=== PATIENT | male | born 1935 | race Caucasian/White ===

== ENCOUNTER 2021-02-23 17:19 | Inpatient (IN) | payer OTHER, MEDICARE, BC ==
[2021-02-23] MEDS ORDERED: FUROSEMIDE 10 MG/ML 4 ML VIAL IV STA (17:24)
[2021-02-23 17:40] LABS: Basophils % (A) 0 %; Eosinophils % (A) 0 %; HCT 48.4 % (39.0-53.0); HGB 15.5 gm/dL (13.0-17.5); Lymphocytes # (A) 1.1 k/uL (1.0-4.8); Lymphocytes % (A) 15 %; MCH 29.9 pg (25.0-35.0); MCHC 31.9 g/dL (31.0-37.0); MCV 93.6 fL (80.0-100.0); Monocytes # (A) 0.2 k/uL (0-1.0); Monocytes % (A) 3 %; Neutrophils % (A) 81 %; Platelet Count 168 k/uL (150-450); RBC 5.17 m/uL (4.30-5.90); RDW 13.5 % (11.5-15.5); WBC 7.5 k/uL (3.8-10.6)
[2021-02-23] MEDS ORDERED: HEPARIN SODIUM 1,000 UN/ML (10ML VL) IV PRN (17:47)
[2021-02-23] MEDS ORDERED: HEPARIN SODIUM 1,000 UN/ML (10ML VL) IV ONE (17:47)
[2021-02-23 17:48] LABS: ALT 18 U/L (4-49); AST 31 U/L (17-59); African American GFR (CKD) >90 (>60 ml/min/1.73 sqM); Albumin 3.8 g/dL (3.5-5.0); Alkaline Phosphatase 81 U/L (38-126); Anion Gap 6 mmol/L; Blood Urea Nitrogen 20 mg/dL (9-20); Calcium 8.8 mg/dL (8.4-10.2); Carbon Dioxide 35 mmol/L (22-30); Chloride 91 mmol/L (98-107); Glucose 117 mg/dL (74-99); Magnesium 1.9 mg/dL (1.6-2.3); Non-African American GFR(CKD) 87 (>60 ml/min/1.73 sqM); Potassium 4.2 mmol/L (3.5-5.1); Sodium 132 mmol/L (137-145); Total Bilirubin 0.9 mg/dL (0.2-1.3); Total Protein 6.3 g/dL (6.3-8.2)
[2021-02-23] MEDS ORDERED: ASPIRIN 300 MG SUPP RECTAL STA (17:48)
[2021-02-23 17:49] LABS: Partial Thromboplastin Time 23.9 sec (22.0-30.0); Prothrombin Time 10.6 sec (9.0-12.0)
[2021-02-23] MEDS ORDERED: NALOXONE 0.4 MG/ML 1 ML VIAL IV PRN (17:49)
--- NOTE | 2021-02-23 17:55 | ED ---
General Adult HPI - General Chief complaint: Shortness of Breath Stated complaint: sob Time Seen by Provider: 02/23/21 17:23 Source: EMS Mode of arrival: EMS Limitations: altered mental status - History of Present Illness Initial comments: Patient is an 85-year-old male with past medical history remarkable for COPD, CHF was transferred from an outside facility for hypercapnic hypoxic respiratory failure requiring intubation and mechanical ventilation. Patient was transferred for ICU admission. He was seen at the previous hospital was pending admission, when they found more confused and altered. He would not tolerate BiPAP at bedtime and he was intubated. He was transferred here for admission. Laboratory studies at the outside facility revealed an elevated BNP in lead III thousands. Remainder the labs are relatively unremarkable from evaluation. Patient is currently intubated and is unable to provide any form of history at this time.There is no history in our emr. - Related Data Home Medications Medication Instructions Recorded Confirmed Acetaminophen [Tylenol] 1,000 mg PO DAILY@89902/23/21 02/23/21 Aspirin EC [Ecotrin Low Dose] 81 mg PO HS@219902/23/21 02/23/21 Bumetanide [Bumex] 1 mg PO BID@1000,1500 02/23/21 02/23/21 Carvedilol [Coreg] 12.5 mg PO BID@07,219902/23/21 02/23/21 Celecoxib [CeleBREX] 200 mg PO DAILY@69902/23/21 02/23/21 Cholecalciferol [Vitamin D3 (25 25 mcg PO DAILY@69902/23/21 02/23/21 Mcg = 1000 Iu)] Ferrous Sulfate [Feosol] 325 mg PO DAILY@69902/23/21 02/23/21 Levothyroxine Sodium [Synthroid] 75 mcg PO DAILY@69902/23/21 02/23/21 Meclizine HCl 25 mg PO DAILY@89902/23/21 02/23/21 Omeprazole 20 mg PO HS@219902/23/21 02/23/21 Potassium Chloride ER [K-Dur 10] 10 meq PO BID@1000,1500 02/23/21 02/23/21 Simvastatin [Zocor] 20 mg PO HS@219902/23/21 02/23/21 amLODIPine [Norvasc] 5 mg PO DAILY@1000,1500 02/23/21 02/23/21 Allergies Allergy/AdvReac Type Severity Reaction Status Date / Time Penicillins Allergy Unknown Verified 02/23/21 18:22 Review of Systems ROS Statement: Those systems with pertinent positive or pertinent negative responses have been documented in the HPI. Unable to obtain as the patient is currently intubated. ROS Other: All systems not noted in ROS Statement are negative. Past Medical History Past Medical History: Unable to Obtain, COPD History of Any Multi-Drug Resistant Organisms: None Reported Past Surgical History: Unable to Obtain Smoking Status: Unknown if ever smoked Past Alcohol Use History: Unable to Obtain Past Drug Use History: Unable to Obtain General Exam - General Exam Comments Initial Comments: General: Patient is intubated. Currently sedated. HEAD: Normal with no signs of head trauma. EYES: PERRLA, EOMI, conjunctiva normal, no discharge. Pupils are 3 mm and equal bilaterally. ENT: ET tube in place. Trachea is midline. RESPIRATORY: Bilateral breath sounds with bilateral wheezing. Patient's currently ventilated. C/V: Mild bradycardia with a regular rhythm. S1 and S2 auscultated. Peripheral pulses are 1-2+ and intact throughout. Patient has 2-3+ pitting edema up to the bilateral shins. ABD: Abd is soft, nontender, nondistended EXT: Normal range of motion, no obvious deformity SKIN: No rashes or lesions observed on exposed skin. NEURO: Patient is currently intubated and sedated. Not alert or oriented. Limitations: altered mental status Course Vital Signs 02/23/21 02/23/21 02/23/21 17:21 17:31 17:41 Temperature Pulse Rate 51 L 55 L Respiratory 18 18 18 Rate Blood Pressure 160/91 157/90 O2 Sat by Pulse 100 100 Oximetry 02/23/21 02/23/21 02/23/21 17:56 18:00 18:04 Temperature Pulse Rate 51 L 53 L 54 L Respiratory 18 18 Rate Blood Pressure 140/80 138/79 O2 Sat by Pulse 100 100 Oximetry 02/23/21 02/23/21 02/23/21 18:09 18:48 19:02 Temperature 98.0 F Pulse Rate 52 L 51 L 55 L Respiratory 18 18 18 Rate Blood Pressure 127/87 O2 Sat by Pulse 98 97 Oximetry Procedures - ABG Interpretation Ph: 7.456 PCO2: 54.6 PO2: 204 Bicarbonate: 38.4 Interpretation: respiratory acidosis, metabolic alkalosis Medical Decision Making - Medical Decision Making Based on the patient's presentation and physical exam, I'm concerned for cardiac etiology versus heart failure exacerbation of COPD exacerbation for his current presentation. Is currently intubated for hypoxic hypercarbic respiratory failure. I did make ventilator adjustments, and increase the respiratory rate increased ventilation as the patient did have a CO2 at the outside facility over 100. We will repeat blood work, obtain a repeat EKG, chest x-ray, as well as an ABG. He'll be connected to continuous cardiac monitoring. He will require admission to the ICU. 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 Please see in the separately dictated EKG. I consult to cardiology, Dr. Peacock recommended that we start the patient on heparin for ACS and they will evaluate the patient. Patient remains intubated and sedated at this time on propofol. Patient's chest x-ray revealed a moderate left-sided effusion with adjacent ate lectasis and airspace disease. G-tube in ET tube in place. Patient's laboratory studies are remarkable for a mild hyponatremia of 132 and hypochloremia of 91. Patient's troponin is elevated to 0.052. Patient is COVID Negative. Patient received Lasix 40 mg in the order that Q8 hours. He'll also receive a DuoNeb breathing treatment as well as Q's six-hour 40 mg IV Medrol. He was started on a heparin drip per cardiology. I spoke with the ICU v block saw operator, Dr. Cho, who accepted the patient. Patient will be admitted to [facility] under sounds, and I spoke with Dr. Chen who accepted the patient. Patient was therefore admitted to the ICU in serious condition. - Lab Data Result diagrams: 02/23/21 18:49 02/23/21 17:33 Lab Results 02/23/21 02/23/21 02/23/21 Range/Units 17:33 17:33 17:33 WBC 7.5 (3.8-10.6) k/uL RBC 5.17 (4.30-5.90) m/uL Hgb 15.5 (13.0-17.5) gm/dL Hct 48.4 (39.0-53.0) % MCV 93.6 (80.0-100.0) fL MCH 29.9 (25.0-35.0) pg MCHC 31.9 (31.0-37.0) g/dL RDW 13.5 (11.5-15.5) % Plt Count 168 (150-450) k/uL MPV 7.0 Neutrophils % 81 % Lymphocytes % 15 % Monocytes % 3 % Eosinophils % 0 % Basophils % 0 % Neutrophils # 6.0 (1.3-7.7) k/uL Lymphocytes # 1.1 (1.0-4.8) k/uL Monocytes # 0.2 (0-1.0) k/uL Eosinophils # 0.0 (0-0.7) k/uL Basophils # 0.0 (0-0.2) k/uL PT 10.6 (9.0-12.0) sec INR 1.0 (<1.2) APTT 23.9 (22.0-30.0) sec Sodium 132 L (137-145) mmol/L Potassium 4.2 (3.5-5.1) mmol/L Chloride 91 L (98-107) mmol/L Carbon Dioxide 35 H (22-30) mmol/L Anion Gap 6 mmol/L BUN 20 (9-20) mg/dL Creatinine 0.66 (0.66-1.25) mg/dL Est GFR (CKD-EPI)AfAm >90 (>60 ml/min/1.73 sqM) Est GFR (CKD-EPI)NonAf 87 (>60 ml/min/1.73 sqM) Glucose 117 H (74-99) mg/dL Calcium 8.8 (8.4-10.2) mg/dL Magnesium 1.9 (1.6-2.3) mg/dL Total Bilirubin 0.9 (0.2-1.3) mg/dL AST 31 (17-59) U/L ALT 18 (4-49) U/L Alkaline Phosphatase 81 (38-126) U/L Troponin I (0.000-0.034) ng/mL Total Protein 6.3 (6.3-8.2) g/dL Albumin 3.8 (3.5-5.0) g/dL Coronavirus (PCR) (Not Detectd) 02/23/21 02/23/21 Range/Units 17:33 17:33 WBC (3.8-10.6) k/uL RBC (4.30-5.90) m/uL Hgb (13.0-17.5) gm/dL Hct (39.0-53.0) % MCV (80.0-100.0) fL MCH (25.0-35.0) pg MCHC (31.0-37.0) g/dL RDW (11.5-15.5) % Plt Count (150-450) k/uL MPV Neutrophils % % Lymphocytes % % Monocytes % % Eosinophils % % Basophils % % Neutrophils # (1.3-7.7) k/uL Lymphocytes # (1.0-4.8) k/uL Monocytes # (0-1.0) k/uL Eosinophils # (0-0.7) k/uL Basophils # (0-0.2) k/uL PT (9.0-12.0) sec INR (<1.2) APTT (22.0-30.0) sec Sodium (137-145) mmol/L Potassium (3.5-5.1) mmol/L Chloride (98-107) mmol/L Carbon Dioxide (22-30) mmol/L Anion Gap mmol/L BUN (9-20) mg/dL Creatinine (0.66-1.25) mg/dL Est GFR (CKD-EPI)AfAm (>60 ml/min/1.73 sqM) Est GFR (CKD-EPI)NonAf (>60 ml/min/1.73 sqM) Glucose (74-99) mg/dL Calcium (8.4-10.2) mg/dL Magnesium (1.6-2.3) mg/dL Total Bilirubin (0.2-1.3) mg/dL AST (17-59) U/L ALT (4-49) U/L Alkaline Phosphatase (38-126) U/L Troponin I 0.052 H* (0.000-0.034) ng/mL Total Protein (6.3-8.2) g/dL Albumin (3.5-5.0) g/dL Coronavirus (PCR) Not Detected (Not Detectd) - EKG Data -: EKG Interpreted by Me EKG Comments: 12-lead Electrocardiogram Interpretation Note EKG was reviewed and interpreted by myself. 12-lead ECG performed at 1735 is interpreted by me as revealing sinus bradycardia at a rate of 54 beats per minute. Left axis deviation. PA interval 190 ms, QRS durations 126 ms, QTc is 493 ms.. There are deep T-wave inversions in lead V2 through V4 as well as T- wave inversions in V5 and V6. Leads V2 through the for her also associated with mild ST segment depressions. Remainder of the leads are unremarkable. This is concerning for Wellens syndrome.. R wave progression across precordium was delayed.. By my interpretation, this EKG is concerning for acute ischemia and Wellens syndrome with sinus bradycardia. These are dynamic changes, as his prior EKGs at the outside facility did not reveal any T-wave inversions or depressions. Critical Care Time Critical Care Time: Yes Total Critical Care Time: 35 Critical Care Time: Upon my evaluation, this patient had a high probability of imminent or life- threatening deterioration due to respiratory failure, ACS, which required my direct attention, intervention, and personal management. I have personally provided 35 minutes of critical care time exclusive of time spent on separately billable procedures. Time includes review of laboratory data, radiology results, discussion with consultants, and monitoring for potential decompensation. Interventions were performed as documented in my note. Disposition Clinical Impression: ACS (acute coronary syndrome), Acute respiratory failure with hypoxia and hypercarbia, CHF exacerbation, COPD exacerbation, Elevated troponin, Hyponatremia, Sinus bradycardia Disposition: ADMITTED IP TO THIS HOSP Condition: Serious
[2021-02-23] MEDS: IPRATROPIUM-ALBUTEROL 3 ML NEB INHALATION SCH ×3 (17:56→23:23)
[2021-02-23 18:03] LABS: ABG Base Excess 14.5 mmol/L; ABG HCO3 38 mmol/L (21-25); ABG Oxygen Saturation 99.9 % (94-97); ABG PCO2 55 mmHg (35-45); ABG PH 7.46 (7.35-7.45); ABG PO2 204 mmHg (83-108); ABG TCO2 40 mmol/L (19-24); Allen Test Performed? Yes
--- NOTE | 2021-02-23 18:09 | XR ---
EXAMINATION TYPE: XR chest 1V portable DATE OF EXAM: 02/23/2021 COMPARISON: NONE HISTORY: Chest pain. Tube placement. TECHNIQUE: Single frontal view of the chest is obtained. FINDINGS: Perimediastinal silhouette is partially obscured on the left but appears unremarkable on t he right. Pulmonary vasculature is within normal limits. Opacification the left base. Median sternotomy wires. Gastric tube coursing below the diaphragm with the distal tip not seen. Endo tracheal tube tip approximately 2 cm above the adarsh. Partially visualized bilateral shoulder arthro plasties. IMPRESSION: 1. Moderate left effusion with adjacent atelectasis/airspace disease. 2. Lines and tubes as above.
[2021-02-23] MEDS: HEPARIN SOD,PORK IN 0.45% NACL 25,000 UNIT in 0.45% NACL 1 250ML.BAG IV SCH (18:41)
[2021-02-23] MEDS: methylPREDNISolone SOD SUCCI 40 MG/ML 1 ML VIAL IV SCH (18:44)
[2021-02-23] MEDS ORDERED: ASPIRIN 81 MG PO STA (18:46)
[2021-02-23 19:01] LABS: Basophils % (A) 0 %; Eosinophils % (A) 0 %; HCT 46.9 % (39.0-53.0); HGB 15.4 gm/dL (13.0-17.5); Lymphocytes # (A) 0.9 k/uL (1.0-4.8); Lymphocytes % (A) 12 %; MCH 30.4 pg (25.0-35.0); MCHC 32.8 g/dL (31.0-37.0); MCV 92.7 fL (80.0-100.0); Mean Platelet Volume 7.1; Monocytes # (A) 0.3 k/uL (0-1.0); Monocytes % (A) 4 %; Neutrophils % (A) 82 %; Platelet Count 160 k/uL (150-450); RBC 5.06 m/uL (4.30-5.90); RDW 13.6 % (11.5-15.5); WBC 7.2 k/uL (3.8-10.6)
[2021-02-23 19:07] LABS: Glucose,Whole Blood 151 mg/dL (75-99)
[2021-02-23 19:11] LABS: Partial Thromboplastin Time 23.5 sec (22.0-30.0); Prothrombin Time 10.6 sec (9.0-12.0)
[2021-02-23] MEDS: ATORVASTATIN 10 MG TAB PO SCH (22:07)
[2021-02-24] MEDS: methylPREDNISolone SOD SUCCI 40 MG/ML 1 ML VIAL IV SCH ×2 (01:10→06:45)
[2021-02-24] MEDS: FUROSEMIDE 10 MG/ML 4 ML VIAL IV SCH ×2 (01:10→09:02)
--- NOTE | 2021-02-24 01:42 | P.HPIM ---
History of Present Illness H&P Date: 02/23/21 Chief Complaint: shortness of breath 85-year-old male with history of COPD and CHF Patient is intubated unable to provide any meaningful history. History was obtained by reviewing medical records Patient was transferred to our facility due to respiratory failure he was in tubated on mechanical ventilation for acute hypercapnic respiratory failure. He presented to the other facility with progressive shortness of breath per the son but he became confused and hypoxic quickly did not tolerate BiPAP and he was intubated. Patient was found to have elevated proBNP and troponins and EKG showed left bundle branch block however repeat EKG in our facility showed diffuse T wave inversion, and bradycardia with PVCs which was an acute change compared to prior EKG from the other facility. Cardiology is aware Transfer records did not include any history. Case discussed with [employer] and ED. Patient is currently being treated for acute CHF exacerbation with IV diuresis, troponins are being trended cardiology is following is currently on heparin drip per ACS overall blood work is unremarkable except for slightly elevated troponins and what looks like acute on chronic currently compensated hypercapnia . Also some component of hyponatremia Chest x-ray did show moderate left pleural effusion Covid testing was negative Review of Systems Unable to obtain ROS unobtainable: due to endotracheal tube Past Medical History Past Medical History: Unable to Obtain, COPD History of Any Multi-Drug Resistant Organisms: None Reported Past Surgical History: Unable to Obtain Additional Past Surgical History / Comment(s): CABG x 5 Past Anesthesia/Blood Transfusion Reactions: No Reported Reaction Smoking Status: Unknown if ever smoked Past Alcohol Use History: Unable to Obtain Past Drug Use History: Unable to Obtain - Past Family History Family Family Medical History: Unable to Obtain Medications and Allergies Home Medications Medication Instructions Recorded Confirmed Type Acetaminophen [Tylenol] 1,000 mg PO DAILY@0902/23/21 02/23/21 History Aspirin EC [Ecotrin Low Dose] 81 mg PO HS@219902/23/21 02/23/21 History Bumetanide [Bumex] 1 mg PO BID@1000,1500 02/23/21 02/23/21 History Carvedilol [Coreg] 12.5 mg PO BID@0700,2200 02/23/21 02/23/21 History Celecoxib [CeleBREX] 200 mg PO DAILY@0700 02/23/21 02/23/21 History Cholecalciferol [Vitamin D3 (25 25 mcg PO DAILY@69902/23/21 02/23/21 History Mcg = 1000 Iu)] Ferrous Sulfate [Feosol] 325 mg PO DAILY@69902/23/21 02/23/21 History Levothyroxine Sodium [Synthroid] 75 mcg PO DAILY@69902/23/21 02/23/21 History Meclizine HCl 25 mg PO DAILY@89902/23/21 02/23/21 History Omeprazole 20 mg PO HS@219902/23/21 02/23/21 History Potassium Chloride ER [K-Dur 10] 10 meq PO BID@1000,1500 02/23/21 02/23/21 History Simvastatin [Zocor] 20 mg PO HS@219902/23/21 02/23/21 History amLODIPine [Norvasc] 5 mg PO DAILY@1000,1500 02/23/21 02/23/21 History Allergies Allergy/AdvReac Type Severity Reaction Status Date / Time Penicillins Allergy Unknown Verified 02/23/21 18:22 Physical Exam Vitals: Vital Signs Temp Pulse Resp BP Pulse Ox 02/23/21 21:00 51 L 18 143/81 96 02/23/21 20:00 59 L 18 145/73 97 02/23/21 19:02 55 L 18 97 02/23/21 18:48 98.0 F 51 L 18 127/87 98 02/23/21 18:09 52 L 18 02/23/21 18:04 54 L 18 138/79 100 02/23/21 18:00 53 L 18 140/80 100 02/23/21 17:56 51 L 02/23/21 17:41 55 L 18 157/90 100 02/23/21 17:31 18 02/23/21 17:21 51 L 18 160/91 100 Intake and Output 02/23/21 02/23/21 02/23/21 06:59 14:59 22:59 Intake Total 120.000 Output Total 1150 Balance -1030.000 Intake: IV 20 0.9 NS KVO 20 Intake, IV Titration 100.000 Amount propofoL 1,000 mg In 100.000 Empty Bag 1 bag @ Titrate IV .Q0M [facility] Rx#: [id number] Output: Urine 1150 Other: Voiding Method Indwelling Catheter Weight 132 kg Constitutional: Patient intubated and sedated with propofol grimaces to painful stimulation Eyes: Anicteric sclerae, moist conjunctiva, Pupils equal round reactive to light ENMT: NC/AT Neck: Supple, no masses, or JVD No carotid bruits No thyromegaly Lungs: Good breath sounds bilaterally no wheezing no rales Clear to percussion Normal respiratory effort, no accessory muscle use Cardiovascular: Heart bradycardia No murmurs, gallops, or rubs No peripheral edema Abdominal: Soft Nontender, no guarding, rebound or rigidity Abdomen moving with respiration Normoactive bowel sounds No hepatomegaly, No splenomegaly No palpable mass No abdominal wall hernia noted Verma catheter in place with blood-tinged urine Skin: Chronic skin changes of bilateral lower third of the legs, otherwise Normal temperature, tone, texture, turgor No induration No subcutaneous nodules No rash, lesions No ulcers Extremities: No digital cyanosis No clubbing Pedal pulses intact and symmetrical Radial pulses intact and symmetrical No swelling of the legs Psychiatric: Intubated and sedated grimaces to painful stimuli Neuro unable to assess patient intubated and sedated Lymphatics: no palpable cervical or supraclavicular , or inguinal lymph nodes Results CBC & Chem 7: 02/23/21 18:49 02/23/21 17:33 Labs: Abnormal Lab Results - Last 24 Hours (Table) 02/23/21 02/23/21 02/23/21 Range/Units 17:33 17:33 17:49 Lymphocytes # (1.0-4.8) k/uL ABG pH 7.46 H (7.35-7.45) ABG pCO2 55 H (35-45) mmHg ABG pO2 204 H (83-108) mmHg ABG HCO3 38 H (21-25) mmol/L ABG Total CO2 40 H (19-24) mmol/L ABG O2 Saturation 99.9 H (94-97) % Sodium 132 L (137-145) mmol/L Chloride 91 L (98-107) mmol/L Carbon Dioxide 35 H (22-30) mmol/L Glucose 117 H (74-99) mg/dL POC Glucose (mg/dL) (75-99) mg/dL Troponin I 0.052 H* (0.000-0.034) ng/mL 02/23/21 02/23/21 02/23/21 Range/Units 18:49 18:49 19:06 Lymphocytes # 0.9 L (1.0-4.8) k/uL ABG pH (7.35-7.45) ABG pCO2 (35-45) mmHg ABG pO2 (83-108) mmHg ABG HCO3 (21-25) mmol/L ABG Total CO2 (19-24) mmol/L ABG O2 Saturation (94-97) % Sodium (137-145) mmol/L Chloride (98-107) mmol/L Carbon Dioxide (22-30) mmol/L Glucose (74-99) mg/dL POC Glucose (mg/dL) 151 H (75-99) mg/dL Troponin I 0.051 H* (0.000-0.034) ng/mL Thrombosis Risk Factor Assmnt - Choose All That Apply Each Factor Represents 1 point: Abnormal pulmonary function (COPD), Heart failure (<1month), Obesity (BMI >25) Each Risk Factor Represents 3 Points: Age 75 years or older Thrombosis Risk Factor Assessment Total Risk Factor Score: 6 Thrombosis Risk Factor Assessment Level: High Risk Assessment and Plan Assessment: Suspected Acute coronary syndrome, NSTEMI versus Wellens syndrome (diffuse deep T-wave inversions with elevated troponins) Moderate left pleural effusion with picture suggestive of congestive heart failure upon earlier presentation Case discussed with cardiology recommending heparin drip pending further recommendations Close monitoring in the ICU with supportive care Aspirin and statin Cardiac telemetry Trend troponins Check echocardiogram Cardiology recommending IV diuresis Beta omid and amlodipine on hold due to bradycardia Heparin drip per ACS protocol Acute on chronic hypercapnic respiratory failure with history of COPD Patient given breathing treatment Vent support Follow-up ABG Systemic steroids Hypothyroid resume levothyroxine GI prophylaxis with PPI Check urine analysis currently on heparin drip with blood-tinged urine Prognosis is guarded Await further cardiology recommendations Anticipated length of stay more than 2 midnights
[2021-02-24] MEDS: IPRATROPIUM-ALBUTEROL 3 ML NEB INHALATION SCH ×6 (03:19→23:40)
[2021-02-24 04:15] LABS: Basophils % (A) 0 %; Eosinophils % (A) 0 %; HCT 49.1 % (39.0-53.0); HGB 16.2 gm/dL (13.0-17.5); Lymphocytes # (A) 1.1 k/uL (1.0-4.8); Lymphocytes % (A) 15 %; MCH 30.2 pg (25.0-35.0); MCHC 32.9 g/dL (31.0-37.0); MCV 91.6 fL (80.0-100.0); Mean Platelet Volume 7.6; Monocytes # (A) 0.3 k/uL (0-1.0); Monocytes % (A) 5 %; Neutrophils # (A) 5.7 k/uL (1.3-7.7); Neutrophils % (A) 79 %; Platelet Count 170 k/uL (150-450); RBC 5.36 m/uL (4.30-5.90); RDW 13.3 % (11.5-15.5); WBC 7.2 k/uL (3.8-10.6)
[2021-02-24 04:39] LABS: African American GFR (CKD) >90 (>60 ml/min/1.73 sqM); Anion Gap 9 mmol/L; Blood Urea Nitrogen 19 mg/dL (9-20); Calcium 9.3 mg/dL (8.4-10.2); Carbon Dioxide 34 mmol/L (22-30); Chloride 89 mmol/L (98-107); Glucose 151 mg/dL (74-99); Non-African American GFR(CKD) 90 (>60 ml/min/1.73 sqM); Potassium 3.1 mmol/L (3.5-5.1); Sodium 132 mmol/L (137-145)
[2021-02-24 04:39] LABS: ABG Base Excess 17.5 mmol/L; ABG Oxygen Saturation 96.3 % (94-97); ABG PCO2 43 mmHg (35-45); ABG PO2 70 mmHg (83-108); ABG TCO2 41 mmol/L (19-24); Allen Test Performed? Yes
[2021-02-24 04:41] LABS: ABG PH 7.57 (7.35-7.45)
[2021-02-24 04:42] LABS: ABG HCO3 40 mmol/L (21-25)
[2021-02-24 06:33] LABS: Glucose,Whole Blood 149 mg/dL (75-99)
[2021-02-24] MEDS: LEVOTHYROXINE 75 MCG TAB PO SCH (06:45)
[2021-02-24] MEDS ORDERED: Potassium Replacement Protocol 1 EACH MISC MISCELLANE PRN (07:34)
[2021-02-24] MEDS ORDERED: Magnesium Replacement Protocol 1 EACH MISC MISCELLANE PRN (07:34)
[2021-02-24] MEDS: CISATRACURIUM 2 MG/ML 5 ML VIAL IV ONE (08:28)
[2021-02-24] MEDS: PANTOPRAZOLE 40 MG/10 ML VIAL IVP SCH (09:03)
--- NOTE | 2021-02-24 09:06 | XR ---
EXAMINATION TYPE: XR chest 1V DATE OF EXAM: 02/24/2021 COMPARISON: Chest x-ray 02/23/2021 HISTORY: Congestive heart failure, intubated TECHNIQUE: Single frontal view of the chest is obtained. FINDINGS: Endotracheal tube, NG tube are overlying appropriate positions. There are overlying leads. Patient is status post bilateral shoulder arthroplasties and median sternotomy. Patient is rotated. Heart is enlarged. Retrocardiac density persists, there is obscured left hemidiaphragm, minimal blunt ing of the right hemidiaphragm. IMPRESSION: Findings are similar to prior exam. There may be some improvement in the interstitium al though there are differences in technique. Possible left lower lobe atelectasis versus pneumonia and associated effusion left greater than right.
[2021-02-24] MEDS ORDERED: METOPROLOL TARTRATE 25 MG TAB PO SCH (09:15)
--- NOTE | 2021-02-24 09:43 | XR ---
EXAMINATION TYPE: XR chest 1V portable DATE OF EXAM: 02/24/2021 COMPARISON: Chest x-ray 02/24/2021 and earlier time HISTORY: Central venous catheter placement TECHNIQUE: Single frontal view of the chest is obtained. FINDINGS: There is been interval placement of a left subclavian central venous catheter, distal tip is at the level of the cavoatrial junction. There is no evident pneumothorax or other significant int erval change. IMPRESSION: No evident complication status post central venous catheter placement.
--- NOTE | 2021-02-24 09:46 | PCN ---
PROCEDURE NOTE PROCEDURE: Left subclavian triple-lumen catheter placement. OPERATORS: Dr. Cho and Dr. Garcia. PREOPERATIVE DIAGNOSIS: Administration of fluids and pressors. POSTOPERATIVE DIAGNOSIS: Administration of fluids and pressors. PROCEDURE DESCRIPTION: A time-out was completed verifying correct patient, procedure, site, positioning, and implant(s) or special equipment if applicable. The patient was placed in a dependent position appropriate for triple lumen catheter placement based on the vein to be cannulated. The patient's left shoulder was prepped and draped in sterile fashion. 1% Lidocaine was used to anesthetize the surrounding skin area. A triple lumen 9F Cordis catheter was introduced into the left subclavian vein using Seldinger technique. The catheter was threaded smoothly over the guide wire and appropriate blood return was obtained. Each lumen of the catheter was evacuated of air and flushed with sterile saline. The catheter was then sutured in place to the skin and a sterile dressing applied. Perfusion to the extremity distal to the point of catheter insertion was checked and found to be adequate. There was no immediate complication. There was good blood return from all 3 ports. The patient tolerated the procedure well. A chest x-ray will be ordered. The catheter was sutured in place. A sterile dressing was applied by the nurse. There was informed consent and universal timeout. MMODL / IJN: [id number] /
--- NOTE | 2021-02-24 09:54 | PCN ---
PROCEDURE NOTE PULMONARY/CRITICAL CARE PROCEDURE NOTE: PROCEDURE: Left radial arterial line placement. PREOPERATIVE DIAGNOSIS: Frequent blood draws and blood gas monitoring. POSTOPERATIVE DIAGNOSIS: Frequent blood draws and blood gas monitoring. OPERATORS: 1. Dr. Cho. 2. Dr. Garcia. PROCEDURE DESCRIPTION: A time-out was completed verifying correct patient, procedure, site, positioning, and implant(s) or special equipment if applicable. Luciano's test was performed to ensure adequate perfusion. The patient's left wrist was prepped and draped in sterile fashion. 1% Lidocaine was used to anesthetize the area. An 18G Arrow arterial line was introduced into the left radial artery. The catheter was threaded over the guide wire and the needle was removed with appropriate pulsatile blood return. Blood loss was minimal. The catheter was then sutured in place to the skin and a sterile dressing applied. Perfusion to the extremity distal to the point of catheter insertion was checked and found to be adequate. The patient tolerated the procedure well and there were no complications. There was informed consent and universal timeout. There was no immediate complication. There was good blood return and waveform. The patient tolerated the procedure well. The catheter was sutured in place. A sterile dressing was applied by the nurse. MMODL / IJN: [id number] /
--- NOTE | 2021-02-24 10:49 | P.CRDCN ---
History of Present Illness Consult date: 02/24/21 History of present illness: HISTORY OF PRESENT ILLNESS: This is a 85-year-old male with a past medical history significant for coronary artery disease with previous CABG 5, hypertension, congestive heart failure, hyperlipidemia, GERD, and hypothyroidism. Patient does not follow with a economic development manager at [facility]. We have been asked to see the patient in consultation for acute coronary syndrome. [facility] after he was found to have hypercapnic respiratory failure and was intubated. Patient examined at the bedside in the intensive care unit. He remains intubated and sedated. There is no family present to provide additional information. Patients vital signs are stable and he is not requiring vasopressor support. He is on IV heparin. EKG at outside facility reveals sinus mechanism with left bundle branch block. Repeat EKG reveals sinus mechanism with diffuse T-wave inversions Chest xray moderate left effusion with adjacent atelectasis and/or airspace di sease Laboratory data: WBC 7.2. Hemoglobin 16.2. Platelet count 170. Sodium 132. Potassium 3.1. BUN 19. Creatinine 0.62. ProBNP 1210. TSH 1.200. Troponin 0.052. 0.051. 0.043. Current home cardiac medications include simvastatin 20 mg daily, aspirin 81 mg daily, amlodipine 5 mg daily, Bumex 1 mg twice a day, and carvedilol 0.5 mg twice a day REVIEW OF SYSTEMS: Unable to obtain thorough review of systems secondary to mechanical ventilation and IV sedation PHYSICAL EXAM: VITAL SIGNS: Reviewed. GENERAL: Well-developed in no acute distress-sedated. HEENT: Head is normocephalic. Pupils are equal, round. Sclerae anicteric. Mucous membranes of the mouth are moist. Neck supple. No JVD or thyromegaly LUNGS: Respirations even and unlabored. Lungs diminished to auscultation bilaterally. HEART: Regular rate and rhythm. S1 and S2 heard. ABDOMEN: Soft. Nondistended. Nontender. EXTREMITIES: Normal range of motion. No clubbing or cyanosis. Peripheral pulses intact. No lower extremity edema NEUROLOGIC: Sedated on mechanical ventilation ASSESSMENT: Acute hypercapnic respiratory failure, requiring mechanical ventilation Coronary artery disease with previous CABG 5, exact details unknown Acute on chronic congestive heart failure, type unknown, echo pending Abnormal troponins, flat, not suggestive of acute coronary syndrome Left pleural effusion Hypertension Hyperlipidemia GERD Hypothyroidism PLAN: Obtain 2D echo to assess cardiac structure and function Decrease lasix to 40mg IV daily Continue aspirin and lipitor Obtain lipid panel Resume home dose of Coreg with parameters to hold for heart rate less than 60 Add lisinopril 5 mg daily Continue IV heparin until 2D echo is completed and reviewed Further recommendations pending patient course Nurse practitioner note has been reviewed by physician. Signing provider agrees with the documented findings, assessment, and plan of care. Past Medical History Past Medical History: Unable to Obtain, COPD History of Any Multi-Drug Resistant Organisms: None Reported Past Surgical History: Unable to Obtain Additional Past Surgical History / Comment(s): CABG x 5 Past Anesthesia/Blood Transfusion Reactions: No Reported Reaction Smoking Status: Unknown if ever smoked Past Alcohol Use History: Unable to Obtain Past Drug Use History: Unable to Obtain - Past Family History Family Family Medical History: Unable to Obtain Medications and Allergies Home Medications Medication Instructions Recorded Confirmed Type Acetaminophen [Tylenol] 1,000 mg PO DAILY@89902/23/21 02/23/21 History Aspirin EC [Ecotrin Low Dose] 81 mg PO HS@219902/23/21 02/23/21 History Bumetanide [Bumex] 1 mg PO BID@1000,1500 02/23/21 02/23/21 History Carvedilol [Coreg] 12.5 mg PO BID@0700,219902/23/21 02/23/21 History Celecoxib [CeleBREX] 200 mg PO DAILY@69902/23/21 02/23/21 History Cholecalciferol [Vitamin D3 (25 25 mcg PO DAILY@69902/23/21 02/23/21 History Mcg = 1000 Iu)] Ferrous Sulfate [Feosol] 325 mg PO DAILY@69902/23/21 02/23/21 History Levothyroxine Sodium [Synthroid] 75 mcg PO DAILY@69902/23/21 02/23/21 History Meclizine HCl 25 mg PO DAILY@89902/23/21 02/23/21 History Omeprazole 20 mg PO HS@219902/23/21 02/23/21 History Potassium Chloride ER [K-Dur 10] 10 meq PO BID@1000,1500 09/23/21 09/23/21 History Simvastatin [Zocor] 20 mg PO HS@2200 02/23/21 02/23/21 History amLODIPine [Norvasc] 5 mg PO DAILY@1000,1500 02/23/21 02/23/21 History Allergies Allergy/AdvReac Type Severity Reaction Status Date / Time Penicillins Allergy Unknown Verified 02/23/21 18:22 Physical Exam Vitals: Vital Signs Temp Pulse Resp BP Pulse Ox 02/24/21 10:00 58 L 17 174/93 94 L 02/24/21 09:00 68 16 174/97 96 02/24/21 08:00 54 L 14 143/82 97 02/24/21 07:00 50 L 17 124/74 98 02/24/21 06:00 48 L 18 124/76 94 L 02/24/21 05:00 48 L 18 152/83 94 L 02/24/21 04:00 52 L 18 140/75 97 02/24/21 03:35 55 L 02/24/21 03:25 53 L 02/24/21 03:00 50 L 18 132/78 94 L 02/24/21 02:00 52 L 18 138/82 95 02/24/21 01:00 52 L 18 153/81 96 02/24/21 00:00 54 L 18 150/78 95 02/23/21 23:52 54 L 02/23/21 23:39 54 L 02/23/21 23:00 56 L 18 149/83 95 02/23/21 22:00 53 L 18 151/83 96 02/23/21 21:00 51 L 18 143/81 96 02/23/21 20:00 59 L 18 145/73 97 02/23/21 19:02 55 L 18 97 02/23/21 18:48 98.0 F 51 L 18 127/87 98 02/23/21 18:09 52 L 18 02/23/21 18:04 54 L 18 138/79 100 02/23/21 18:00 53 L 18 140/80 100 02/23/21 17:56 51 L 02/23/21 17:41 55 L 18 157/90 100 02/23/21 17:31 18 02/23/21 17:21 51 L 18 160/91 100 Intake and Output 02/23/21 02/24/21 02/24/21 22:59 06:59 14:59 Intake Total 240.000 278.407 40 Output Total 1650 1645 200 Balance -1410.000 -1366.593 -160 Intake: IV 40 80 40 0.9 NS KVO 40 80 40 Intake, IV Titration 200.000 198.407 Amount Heparin Sod,Pork in 0.45% 63.833 NaCl 25,000 unit In 0.45 % NaCl 1 250ml.bag @ 7. 576 UNITS/KG/HR 10 mls/hr IV .Q24H [facility] Rx#: [id number] propofoL 1,000 mg In 200.000 134.574 Empty Bag 1 bag @ Titrate IV .Q0M [facility] Rx#: [id number] Output: Urine 1650 1645 200 Other: Voiding Method Indwelling Catheter Indwelling Catheter Indwelling Catheter Weight 132 kg 122.7 kg ABP, PAP, CO, CI - Last 8 Hours Arterial Blood Pressure 132/55 Arterial Blood Pressure 167/73 Results 02/24/21 03:52 02/24/21 03:52 Cardiac Enzymes 02/23/21 02/23/21 02/23/21 Range/Units 17:33 17:33 18:49 AST 31 (17-59) U/L Troponin I 0.052 H* 0.051 H* (0.000-0.034) ng/mL 02/23/21 Range/Units 21:11 AST (17-59) U/L Troponin I 0.043 H* (0.000-0.034) ng/mL Coagulation 02/23/21 02/23/21 02/23/21 Range/Units 17:33 18:49 23:40 PT 10.6 10.6 (9.0-12.0) sec APTT 23.9 23.5 38.4 H (22.0-30.0) sec 02/24/21 Range/Units 07:43 PT (9.0-12.0) sec APTT 53.6 H (22.0-30.0) sec CBC 02/23/21 02/23/21 02/24/21 Range/Units 17:33 18:49 03:52 WBC 7.5 7.2 7.2 (3.8-10.6) k/uL RBC 5.17 5.06 5.36 (4.30-5.90) m/uL Hgb 15.5 15.4 16.2 (13.0-17.5) gm/dL Hct 48.4 46.9 49.1 (39.0-53.0) % Plt Count 168 160 170 (150-450) k/uL Comprehensive Metabolic Panel 02/23/21 02/24/21 Range/Units 17:33 03:52 Sodium 132 L 132 L (137-145) mmol/L Potassium 4.2 3.1 L (3.5-5.1) mmol/L Chloride 91 L 89 L (98-107) mmol/L Carbon Dioxide 35 H 34 H (22-30) mmol/L BUN 20 19 (9-20) mg/dL Creatinine 0.66 0.62 L (0.66-1.25) mg/dL Glucose 117 H 151 H (74-99) mg/dL Calcium 8.8 9.3 (8.4-10.2) mg/dL AST 31 (17-59) U/L ALT 18 (4-49) U/L Alkaline Phosphatase 81 (38-126) U/L Total Protein 6.3 (6.3-8.2) g/dL Albumin 3.8 (3.5-5.0) g/dL Current Medications Generic Name Dose Route Start Last Admin Trade Name Freq PRN Reason Stop Dose Admin Albuterol/Ipratropium 3 ml 02/23/21 17:30 02/24/21 08:57 Ipratropium-Albuterol 3 Ml Neb INHALATION Not Given Q4HR [facility] Aspirin 81 mg 02/24/21 22:00 Aspirin 81 Mg PO HS@2200 [facility] Atorvastatin Calcium 10 mg 02/23/21 22:00 02/23/21 22:07 Atorvastatin 10 Mg Tab PO 10 mg HS@2200 [facility] Administration Carvedilol 12.5 mg 02/24/21 22:00 Carvedilol 12.5 Mg Tab PO BID@0700,2200 [facility] Furosemide 40 mg 02/25/21 09:00 Furosemide 10 Mg/Ml 4 Ml Vial IV DAILY [facility] Heparin Sodium (Porcine) 0 unit 02/23/21 17:47 Heparin Sodium 1,000 Un/Ml (10ml Vl) IV PER PROTOCOL PRN Low PTT Protocol Propofol 1,000 mg/ IV Solution 100 mls @ 0 mls/hr 02/23/21 17:30 02/24/21 03:57 IV 40 mcg/kg/min .Q0M [facility] 31.68 mls/hr Administration Protocol Titrate Heparin Sodium/Sodium Chloride 250 mls @ 10 mls/hr 02/23/21 18:00 02/24/21 01:04 25,000 unit/ Sodium Chloride IV 9.6 units/kg/hr .Q24H [facility] 12.672 mls/hr Titration Protocol 7.576 UNITS/KG/HR Levothyroxine Sodium 75 mcg 02/24/21 07:00 02/24/21 06:45 Levothyroxine 75 Mcg Tab PO 75 mcg DAILY@0700 [facility] Administration Lisinopril 5 mg 02/25/21 09:00 Lisinopril 5 Mg Tab PO DAILY [facility] Miscellaneous Information 1 each 02/24/21 07:34 Magnesium Replacement Protocol 1 Each Misc MISCELLANE DAILY PRN Per Protocol Protocol Miscellaneous Information 1 each 02/24/21 07:34 Potassium Replacement Protocol 1 Each Misc MISCELLANE DAILY PRN Per Protocol Protocol Naloxone HCl 0.2 mg 02/23/21 17:49 Naloxone 0.4 Mg/Ml 1 Ml Vial IV Q2M PRN Opioid Reversal Pantoprazole Sodium 40 mg 02/24/21 09:00 02/24/21 09:03 Pantoprazole 40 Mg/10 Ml Vial IVP 40 mg DAILY [facility] Administration Intake and Output 02/23/21 02/24/21 02/24/21 22:59 06:59 14:59 Intake Total 240.000 278.407 40 Output Total 1650 1645 200 Balance -1410.000 -1366.593 -160 Intake: IV 40 80 40 0.9 NS KVO 40 80 40 Intake, IV Titration 200.000 198.407 Amount Heparin Sod,Pork in 0.45% 63.833 NaCl 25,000 unit In 0.45 % NaCl 1 250ml.bag @ 7. 576 UNITS/KG/HR 10 mls/hr IV .Q24H [facility] Rx#: [id number] propofoL 1,000 mg In 200.000 134.574 Empty Bag 1 bag @ Titrate IV .Q0M [facility] Rx#: [id number] Output: Urine 1650 1645 200 Other: Voiding Method Indwelling Catheter Indwelling Catheter Indwelling Catheter Weight 132 kg 122.7 kg 02/24/21 03:52 02/24/21 03:52
[2021-02-24 11:33] LABS: Glucose,Whole Blood 158 mg/dL (75-99)
--- NOTE | 2021-02-24 11:39 | P.CNPUL ---
History of Present Illness Consult date: 02/24/21 Requesting physician: Irving Chen Reason for consult: dyspnea, COPD, hypoxemia, pleural effusion, abnormal CXR/CT, other Chief complaint: Acute respiratory failure. History of present illness: Pulmonary/critical care consultation dated 02/24/2021. 85-year-old male, transferred down from [facility]. The patient was apparently evaluated and treated there for a couple days for shortness of breath, secondary to both COPD and CHF. Because of worsening hypoxemic and hypercapnic respiratory failure, and subsequent intubation, the patient was transferred to our intensive care unit. He was seen in the emergency department. He apparently was on BiPAP at home but could not tolerate it. Currently, the patient is on the volume assist control modality, rate 18, tidal volume 500, FiO2 75% to be dropped down to 50%, and PEEP of 5. Blood gases show pO2 70, pCO2 43, and a pH is 7.57. Currently, the patient's on propofol at 35 mcg/kg/m, heparin via weightbase protocol, and saline at 10 mL an hour. Based on his medications, the patient appears to have hypothyroidism, hyperlipidemia, hypertension, anemia, vitamin D deficiency, gastroesophageal reflux disease, dizziness, and congestive heart failure. White count is 7.2, hemoglobin 16.2, hematocrit 49.1, and platelet count 170,000. PTT is 54. Arterial blood gases have been noted. Sodium 132, potassium 3.1, chlorides 89, CO2 34, anion gap 9, BUN 19, creatinine 0.62. The N-terminal proBNP is 1210. TSH is 1.2. Chest x- ray my opinion shows evidence of interstitial edema, left lower lobe atelectasis versus pneumonia, and small bilateral effusions, left greater than right. The chest x-ray is not much change from the initial chest x-ray. Review of Systems REVIEW OF SYSTEMS: CONSTITUTIONAL: A review of systems is not able to be obtained, as the patient's currently sedated and mechanically ventilated. He apparently came into the outside hospital complaining of shortness of breath, and because he failed BiPAP, was intubated and transferred here. NEUROLOGIC: [ Negative.] HEENT: [ Negative.] CARDIAC: [Negative.] PULMONARY: [Negative.] GI: [Negative.] : [Negative.] RHEUMATOLOGIC: [ Negative.] IMMUNOLOGIC: [ Negative.] ENDOCRINE: [Negative. ] DERMATOLOGIC: [Negative.] Past Medical History Past Medical History: Unable to Obtain, COPD History of Any Multi-Drug Resistant Organisms: None Reported Past Surgical History: Unable to Obtain Additional Past Surgical History / Comment(s): CABG x 5 Past Anesthesia/Blood Transfusion Reactions: No Reported Reaction Smoking Status: Unknown if ever smoked Past Alcohol Use History: Unable to Obtain Past Drug Use History: Unable to Obtain - Past Family History Family Family Medical History: Unable to Obtain Medications and Allergies Home Medications Medication Instructions Recorded Confirmed Type Acetaminophen [Tylenol] 1,000 mg PO DAILY@89902/23/21 02/23/21 History Aspirin EC [Ecotrin Low Dose] 81 mg PO HS@219902/23/21 02/23/21 History Bumetanide [Bumex] 1 mg PO BID@1000,1500 02/23/21 02/23/21 History Carvedilol [Coreg] 12.5 mg PO BID@0700,219902/23/21 02/23/21 History Celecoxib [CeleBREX] 200 mg PO DAILY@69902/23/21 02/23/21 History Cholecalciferol [Vitamin D3 (25 25 mcg PO DAILY@69902/23/21 02/23/21 History Mcg = 1000 Iu)] Ferrous Sulfate [Feosol] 325 mg PO DAILY@69902/23/21 02/23/21 History Levothyroxine Sodium [Synthroid] 75 mcg PO DAILY@69902/23/21 02/23/21 History Meclizine HCl 25 mg PO DAILY@89902/23/21 02/23/21 History Omeprazole 20 mg PO HS@219902/23/21 02/23/21 History Potassium Chloride ER [K-Dur 10] 10 meq PO BID@1000,1500 02/23/21 02/23/21 History Simvastatin [Zocor] 20 mg PO HS@219902/23/21 02/23/21 History amLODIPine [Norvasc] 5 mg PO DAILY@1000,1500 02/23/21 02/23/21 History Allergies Allergy/AdvReac Type Severity Reaction Status Date / Time Penicillins Allergy Unknown Verified 02/23/21 18:22 Physical Exam Osteopathic Statement: *. No significant issues noted on an osteopathic structural exam other than those noted in the History and Physical/Consult. Vitals: Vital Signs Temp Pulse Resp BP Pulse Ox 02/24/21 11:00 65 18 131/79 93 L 02/24/21 10:00 58 L 17 174/93 94 L 02/24/21 09:00 68 16 174/97 96 02/24/21 08:00 54 L 14 143/82 97 02/24/21 07:00 50 L 17 124/74 98 02/24/21 06:00 48 L 18 124/76 94 L 02/24/21 05:00 48 L 18 152/83 94 L 02/24/21 04:00 52 L 18 140/75 97 02/24/21 03:35 55 L 02/24/21 03:25 53 L 02/24/21 03:00 50 L 18 132/78 94 L 02/24/21 02:00 52 L 18 138/82 95 02/24/21 01:00 52 L 18 153/81 96 02/24/21 00:00 54 L 18 150/78 95 02/23/21 23:52 54 L 02/23/21 23:39 54 L 02/23/21 23:00 56 L 18 149/83 95 02/23/21 22:00 53 L 18 151/83 96 02/23/21 21:00 51 L 18 143/81 96 02/23/21 20:00 59 L 18 145/73 97 02/23/21 19:02 55 L 18 97 02/23/21 18:48 98.0 F 51 L 18 127/87 98 02/23/21 18:09 52 L 18 02/23/21 18:04 54 L 18 138/79 100 02/23/21 18:00 53 L 18 140/80 100 02/23/21 17:56 51 L 02/23/21 17:41 55 L 18 157/90 100 02/23/21 17:31 18 02/23/21 17:21 51 L 18 160/91 100 Intake and Output 02/23/21 02/24/21 02/24/21 22:59 06:59 14:59 Intake Total 240.000 278.407 50 Output Total 1650 1645 315 Balance -1410.000 -1366.593 -265 Intake: IV 40 80 50 0.9 NS KVO 40 80 50 Intake, IV Titration 200.000 198.407 Amount Heparin Sod,Pork in 0.45% 63.833 NaCl 25,000 unit In 0.45 % NaCl 1 250ml.bag @ 7. 576 UNITS/KG/HR 10 mls/hr IV .Q24H [facility] Rx#: [id number] propofoL 1,000 mg In 200.000 134.574 Empty Bag 1 bag @ Titrate IV .Q0M [facility] Rx#: [id number] Output: Urine 1650 1645 315 Other: Voiding Method Indwelling Catheter Indwelling Catheter Indwelling Catheter Weight 132 kg 122.7 kg 123.4 kg ABP, PAP, CO, CI - Last 8 Hours Arterial Blood Pressure 119/59 Arterial Blood Pressure 132/55 Arterial Blood Pressure 167/73 No acute distress, sedated, currently on the mechanical ventilator. Saturations are between 93-96%, and he has been weaned down to 40% FiO2. HEENT examination is grossly unremarkable. An orally placed endotracheal tube is noted. Neck supple. Full range of motion. No adenopathy thyromegaly or neck vein distention. Cardiovascular examination reveals regular rhythm rate. S1-S2 normal. No S3 or S4. No discernible murmur noted. Heart sounds are very distant. Heart rate 65 bpm. Lungs reveal coarse bilateral rhonchi. Bibasilar crackles are also noted. There are no wheezes. Breath sounds are equal bilaterally. Breath sounds are diminished throughout. Abdomen soft bowel sounds are heard. No masses or tenderness. Extremities are intact. No cyanosis or clubbing. Mild edema is noted. Skin is without rash or lesion. Neurologic examination is brief but nonfocal. Results - Laboratory Findings CBC and BMP: 02/24/21 03:52 02/24/21 03:52 ABG ABG pH 7.57 (7.35-7.45) H* 02/24/21 04:37 ABG pCO2 43 mmHg (35-45) 02/24/21 04:37 ABG pO2 70 mmHg (83-108) L 02/24/21 04:37 ABG O2 Saturation 96.3 % (94-97) 02/24/21 04:37 PT/INR, D-dimer PT 10.6 sec (9.0-12.0) 02/23/21 18:49 INR 1.0 (<1.2) 02/23/21 18:49 Abnormal lab findings: Abnormal Labs 02/23/21 02/23/21 02/23/21 17:33 17:33 17:49 Lymphocytes # APTT ABG pH 7.46 H ABG pCO2 55 H ABG pO2 204 H ABG HCO3 38 H ABG Total CO2 40 H ABG O2 Saturation 99.9 H Sodium 132 L Potassium Chloride 91 L Carbon Dioxide 35 H Creatinine Glucose 117 H POC Glucose (mg/dL) Troponin I 0.052 H* 02/23/21 02/23/21 02/23/21 18:49 18:49 19:06 Lymphocytes # 0.9 L APTT ABG pH ABG pCO2 ABG pO2 ABG HCO3 ABG Total CO2 ABG O2 Saturation Sodium Potassium Chloride Carbon Dioxide Creatinine Glucose POC Glucose (mg/dL) 151 H Troponin I 0.051 H* 02/23/21 02/23/21 02/24/21 21:11 23:40 03:52 Lymphocytes # APTT 38.4 H ABG pH ABG pCO2 ABG pO2 ABG HCO3 ABG Total CO2 ABG O2 Saturation Sodium 132 L Potassium 3.1 L Chloride 89 L Carbon Dioxide 34 H Creatinine 0.62 L Glucose 151 H POC Glucose (mg/dL) Troponin I 0.043 H* 02/24/21 02/24/21 02/24/21 04:37 06:31 07:43 Lymphocytes # APTT 53.6 H ABG pH 7.57 H* ABG pCO2 ABG pO2 70 L ABG HCO3 40 H* ABG Total CO2 41 H ABG O2 Saturation Sodium Potassium Chloride Carbon Dioxide Creatinine Glucose POC Glucose (mg/dL) 149 H Troponin I - Diagnostic Findings Chest x-ray: image reviewed Assessment and Plan Assessment: Acute hypoxemic respiratory failure, likely multifactorial, in part related to underlying COPD exacerbation and also acute congestive heart failure, status post intubation and mechanical ventilation on February 23. 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 Acute on chronic congestive heart failure. History of hypertension. History of hyperlipidemia. History of gastroesophageal reflux disease. History of hypothyroidism. History of anemia. Plan: Plan dated 02/24/2021. The patient has a left radial arterial line placed, for closer monitoring of blood pressure and but gases. In addition, the patient a left subclavian triple-lumen catheter placed. This will allow us to provide him with fluids and pressors, and also monitor his central venous pressure. The FiO2 has been weaned down to 50%. The patient is placed on albuterol sulfate and ipratropium bromide, every 4 hours [id number]. Cardiology has been consulted. We will start tube feeds. Prognosis is guarded. Additional recommendations and suggestions are forthcoming. We will continue to see this patient and make recommendations where appropriate. Time with Patient: Greater than 30
[2021-02-24] MEDS: POTASSIUM CHLORIDE 20 MEQ in WATER FOR INJECTION 1 100ML.BAG IVPB SCH ×3 (12:50→17:30)
--- NOTE | 2021-02-24 12:59 | P.PN ---
Subjective Progress Note Date: 02/24/21 Patient was seen and evaluated by me this morning. He is sedated and ventilated. Minimal vent settings. Potassium was low this morning at 3.1. No acute events overnight reported by nursing staff. Objective - Vital Signs Vital signs: Vital Signs Temp 98.0 F 02/23/21 18:48 Pulse 52 L 02/24/21 12:34 Resp 18 02/24/21 11:00 BP 131/79 02/24/21 11:00 Pulse Ox 93 L 02/24/21 11:00 Intake & Output 02/23/21 02/24/21 02/24/21 18:59 06:59 18:59 Intake Total 11.616 506.791 50 Output Total 550 2745 315 Balance -538.384 -2238.209 -265 Weight 132 kg 122.7 kg 123.4 kg Intake: IV 120 50 0.9 NS KVO 120 50 Intake, IV Titration 11.616 386.791 Amount Heparin Sod,Pork in 0.45% 63.833 NaCl 25,000 unit In 0.45 % NaCl 1 250ml.bag @ 7. 576 UNITS/KG/HR 10 mls/hr IV .Q24H [facility] Rx#: [id number] propofoL 1,000 mg In 11.616 322.958 Empty Bag 1 bag @ Titrate IV .Q0M [facility] Rx#: [id number] Output: Urine 550 2745 315 Other: Voiding Method Indwelling Catheter Indwelling Catheter ABP, PAP, CO, CI - Last Documented Arterial Blood Pressure 119/59 - Exam General: The patient is sedated and intubated Eye: there is normal conjunctiva bilaterally. Neck: The neck is supple, there is no JVD. Cardiovascular: Normal S1-S2, no S3-S4, no murmurs. Respiratory: Lungs clear to auscultation bilaterally with mechanical ventilator sounds Gastrointestinal: Abdomen is soft, nontender Musculoskeletal: There is no pedal edema. Skin: Skin is warm and dry - Labs CBC & Chem 7: 02/24/21 03:52 02/24/21 03:52 Labs: Abnormal Lab Results - Last 24 Hours (Table) 02/23/21 02/23/21 02/23/21 Range/Units 17:33 17:33 17:49 Lymphocytes # (1.0-4.8) k/uL APTT (22.0-30.0) sec ABG pH 7.46 H (7.35-7.45) ABG pCO2 55 H (35-45) mmHg ABG pO2 204 H (83-108) mmHg ABG HCO3 38 H (21-25) mmol/L ABG Total CO2 40 H (19-24) mmol/L ABG O2 Saturation 99.9 H (94-97) % Sodium 132 L (137-145) mmol/L Potassium (3.5-5.1) mmol/L Chloride 91 L (98-107) mmol/L Carbon Dioxide 35 H (22-30) mmol/L Creatinine (0.66-1.25) mg/dL Glucose 117 H (74-99) mg/dL POC Glucose (mg/dL) (75-99) mg/dL Troponin I 0.052 H* (0.000-0.034) ng/mL 02/23/21 02/23/21 02/23/21 Range/Units 18:49 18:49 19:06 Lymphocytes # 0.9 L (1.0-4.8) k/uL APTT (22.0-30.0) sec ABG pH (7.35-7.45) ABG pCO2 (35-45) mmHg ABG pO2 (83-108) mmHg ABG HCO3 (21-25) mmol/L ABG Total CO2 (19-24) mmol/L ABG O2 Saturation (94-97) % Sodium (137-145) mmol/L Potassium (3.5-5.1) mmol/L Chloride (98-107) mmol/L Carbon Dioxide (22-30) mmol/L Creatinine (0.66-1.25) mg/dL Glucose (74-99) mg/dL POC Glucose (mg/dL) 151 H (75-99) mg/dL Troponin I 0.051 H* (0.000-0.034) ng/mL 02/23/21 02/23/21 02/24/21 Range/Units 21:11 23:40 03:52 Lymphocytes # (1.0-4.8) k/uL APTT 38.4 H (22.0-30.0) sec ABG pH (7.35-7.45) ABG pCO2 (35-45) mmHg ABG pO2 (83-108) mmHg ABG HCO3 (21-25) mmol/L ABG Total CO2 (19-24) mmol/L ABG O2 Saturation (94-97) % Sodium 132 L (137-145) mmol/L Potassium 3.1 L (3.5-5.1) mmol/L Chloride 89 L (98-107) mmol/L Carbon Dioxide 34 H (22-30) mmol/L Creatinine 0.62 L (0.66-1.25) mg/dL Glucose 151 H (74-99) mg/dL POC Glucose (mg/dL) (75-99) mg/dL Troponin I 0.043 H* (0.000-0.034) ng/mL 02/24/21 02/24/21 02/24/21 Range/Units 04:37 06:31 07:43 Lymphocytes # (1.0-4.8) k/uL APTT 53.6 H (22.0-30.0) sec ABG pH 7.57 H* (7.35-7.45) ABG pCO2 (35-45) mmHg ABG pO2 70 L (83-108) mmHg ABG HCO3 40 H* (21-25) mmol/L ABG Total CO2 41 H (19-24) mmol/L ABG O2 Saturation (94-97) % Sodium (137-145) mmol/L Potassium (3.5-5.1) mmol/L Chloride (98-107) mmol/L Carbon Dioxide (22-30) mmol/L Creatinine (0.66-1.25) mg/dL Glucose (74-99) mg/dL POC Glucose (mg/dL) 149 H (75-99) mg/dL Troponin I (0.000-0.034) ng/mL 02/24/21 Range/Units 11:31 Lymphocytes # (1.0-4.8) k/uL APTT (22.0-30.0) sec ABG pH (7.35-7.45) ABG pCO2 (35-45) mmHg ABG pO2 (83-108) mmHg ABG HCO3 (21-25) mmol/L ABG Total CO2 (19-24) mmol/L ABG O2 Saturation (94-97) % Sodium (137-145) mmol/L Potassium (3.5-5.1) mmol/L Chloride (98-107) mmol/L Carbon Dioxide (22-30) mmol/L Creatinine (0.66-1.25) mg/dL Glucose (74-99) mg/dL POC Glucose (mg/dL) 158 H (75-99) mg/dL Troponin I (0.000-0.034) ng/mL Microbiology - Last 24 Hours (Table) 02/23/21 23:41 Sputum Culture - Preliminary Sputum Assessment and Plan Assessment: This is a 85-year-old male with complex past medical history noted below who presented from an outside hospital with worsening shortness of breath and was found to have severe hypoxia and hypercapnia requiring intubation and mechanical ventilation. Patient is admitted to the ICU for further management of his medical problems noted below 1. Acute hypoxic and hypercapnic respiratory failure requiring mechanical ventilation management and ICU team currently on minimal vent settings 2. Acute CHF exacerbation: Started on IV Lasix awaiting echocardiogram. BNP in the morning. 3. Troponin elevation, most likely non-thrombotic troponin leak secondary to above. Cardiology consulted. 4. Underlying COPD with mild exacerbation, given IV steroids on presentation. Steroid discontinued secondary to heart failure exacerbation. Continue bronchodilators. 5. Chronic medical problems: Coronary artery disease status post CABG, Hypertension, hyperlipidemia, GERD, hypothyroidism Today, I reviewed his medication list and lab work results. Potassium and magnesium replacement protocols ordered. Repeat lab work in the morning. Continue ICU care.
[2021-02-24] MEDS: HEPARIN SOD,PORK IN 0.45% NACL 25,000 UNIT in 0.45% NACL 1 250ML.BAG IV SCH ×2 (18:09→20:44)
--- NOTE | 2021-02-24 18:25 | ECHOF ---
Referral Reason:CHF MEASUREMENTS -------- HEIGHT: 182.9 cm WEIGHT: 122.5 kg BP: 124/76 RVIDd: 4.2 cm (< 3.3) IVSd: 1.7 cm (0.6 - 1.1) LVIDd: 5.5 cm (3.9 - 5.3) LVPWd: 1.1 cm (0.6 - 1.1) IVSs: 1.9 cm LVIDs: 4.4 cm LVPWs: 1.5 cm LAESV Index (A-L): 30.04 ml/m Ao Diam: 3.1 cm (2.0 - 3.7) AV Cusp: 0.9 cm (1.5 - 2.6) MV E Anatoliy: 0.58 m/s MV DecT: 139 ms MV A Anatoliy: 0.91 m/s MV E/A Ratio: 0.64 AV maxP.80 mmHg AV meanP.88 mmHg RAP: 5.00 mmHg RVSP: 20.68 mmHg FINDINGS -------- Sinus rhythm with extra systolic beats. This was a technically difficult study with suboptimal views. Pt. on a vent. The left ventricular size is normal. There is severe concentric left ventricular hypertrophy. The re is moderate global hypokinesis of LV . Overall left ventricular systolic function is mild-modera tely impaired with, an EF between 40 - 45 %. Septal wall motion is delayed and consistent with prio r cardiac surgery. The right ventricle is severely enlarged. LA is midly dilated 29-33ml/m2. The right atrial size is normal. 5.0mg of Lumason was utilized for enhancement of images Interatrial and interventricular septum intact. There is moderate aortic valve sclerosis. There is mild aortic regurgitation. There is mild aorti c stenosis present. Peak/mean gradient across the Aortic Valve is 35.80mmHg / 17.88mmHg. Mild mitral annular calcification present. Mild mitral regurgitation is present. The tricuspid valve appears structurally normal. Mild tricuspid regurgitation present. Right vent ricular systolic pressure is normal at < 35 mmHg. The right ventricular systolic pressure, as measu red by Doppler, is 20.68mmHg. There is no pulmonic regurgitation present. The aortic root size is normal. IVC Not well visulized. There is no pericardial effusion. CONCLUSIONS -------- 1. This was a technically difficult study with suboptimal views. 2. There is severe concentric left ventricular hypertrophy. 3. There is moderate global hypokinesis of LV . 4. Overall left ventricular systolic function is mild-moderately impaired with, an EF between 40 - 45 %. 5. The right ventricle is severely enlarged. 6. LA is midly dilated 29-33ml/m2. 7. There is moderate aortic valve sclerosis. 8. There is mild aortic regurgitation. 9. There is mild aortic stenosis present. 10. Peak/mean gradient across the Aortic Valve is 35.80mmHg / 17.88mmHg. 11. Mild mitral annular calcification present. 12. Mild mitral regurgitation is present. 13. Mild tricuspid regurgitation present. [employer] SALES ASSISTANT: Catrina Vasquez RDCS
[2021-02-24] MEDS: ATORVASTATIN 10 MG TAB PO SCH (20:30)
[2021-02-24] MEDS: ASPIRIN 81 MG PO SCH (20:30)
[2021-02-24] MEDS: carvediloL 12.5 MG TAB PO SCH (20:46)
[2021-02-25 00:48] LABS: Glucose,Whole Blood 126 mg/dL (75-99)
[2021-02-25] MEDS ORDERED: FUROSEMIDE 10 MG/ML 4 ML VIAL IV STA (01:00)
[2021-02-25] MEDS: IPRATROPIUM-ALBUTEROL 3 ML NEB INHALATION SCH ×5 (03:18→19:07)
[2021-02-25 04:49] LABS: ABG Base Excess 16.9 mmol/L; ABG HCO3 39 mmol/L (21-25); ABG Oxygen Saturation 95.7 % (94-97); ABG PCO2 41 mmHg (35-45); ABG PO2 70 mmHg (83-108); ABG TCO2 40 mmol/L (19-24); Allen Test Performed? Yes
[2021-02-25 04:53] LABS: ABG PH 7.58 (7.35-7.45)
[2021-02-25 05:16] LABS: Basophils % (A) 0 %; Eosinophils % (A) 0 %; HCT 50.2 % (39.0-53.0); HGB 16.6 gm/dL (13.0-17.5); Lymphocytes # (A) 1.4 k/uL (1.0-4.8); Lymphocytes % (A) 13 %; MCH 30.2 pg (25.0-35.0); MCHC 33.1 g/dL (31.0-37.0); MCV 91.2 fL (80.0-100.0); Mean Platelet Volume 7.8; Monocytes # (A) 0.8 k/uL (0-1.0); Monocytes % (A) 7 %; Neutrophils # (A) 8.4 k/uL (1.3-7.7); Neutrophils % (A) 77 %; Platelet Count 174 k/uL (150-450); RBC 5.51 m/uL (4.30-5.90); WBC 10.9 k/uL (3.8-10.6)
[2021-02-25 06:18] LABS: African American GFR (CKD) >90 (>60 ml/min/1.73 sqM); Anion Gap 9 mmol/L; Blood Urea Nitrogen 25 mg/dL (9-20); Carbon Dioxide 33 mmol/L (22-30); Chloride 90 mmol/L (98-107); Glucose 132 mg/dL (74-99); Magnesium 1.9 mg/dL (1.6-2.3); Non-African American GFR(CKD) 83 (>60 ml/min/1.73 sqM); Potassium 2.8 mmol/L (3.5-5.1); Sodium 132 mmol/L (137-145)
[2021-02-25] MEDS: carvediloL 12.5 MG TAB PO SCH ×2 (06:21→21:06)
--- NOTE | 2021-02-25 06:50 | XR ---
EXAMINATION TYPE: XR chest 1V portable DATE OF EXAM: 02/25/2021 COMPARISON: 02/24/2021 HISTORY: SOB, Follow Up FINDINGS: Indwelling tubes and catheters are unchanged. No change in bibasilar opacities. Stable appearance of the cardio-mediastinal structures at this time. Pleural effusion unchanged. IMPRESSION: 1. Stable portable chest. Clinical correlation and follow up until resolution is recommended.
[2021-02-25] MEDS ORDERED: POTASSIUM BICARBONATE/CIT AC 20 MEQ TABLET.EFF NG-TUBE SCH (07:00)
[2021-02-25] MEDS: LEVOTHYROXINE 75 MCG TAB PO SCH (07:13)
[2021-02-25] MEDS: POTASSIUM CHLORIDE 20 MEQ in WATER FOR INJECTION 1 100ML.BAG IVPB SCH ×3 (07:18→10:37)
[2021-02-25] MEDS: PANTOPRAZOLE 40 MG/10 ML VIAL IVP SCH (08:01)
[2021-02-25] MEDS: lisinopriL 5 MG TAB PO SCH (08:14)
[2021-02-25] MEDS ORDERED: CHLORHEXIDINE GLUCONATE 15 ML CUP MUCOUS MEM SCH (09:00)
[2021-02-25] MEDS ORDERED: FUROSEMIDE 10 MG/ML 4 ML VIAL IV SCH (09:00)
[2021-02-25] MEDS ORDERED: MORPHINE SULFATE 2 MG/ML SYRINGE IVP PRN (10:05)
[2021-02-25 11:59] LABS: Glucose,Whole Blood 117 mg/dL (75-99)
--- NOTE | 2021-02-25 12:46 | P.PN ---
Subjective Progress Note Date: 02/25/21 Principal diagnosis: Respiratory failure. Pulmonary/critical care consultation dated 02/24/2021. 85-year-old male, transferred down from [facility]. The patient was apparently evaluated and treated there for a couple days for shortness of breath, secondary to both COPD and CHF. Because of worsening hypoxemic and hypercapnic respiratory failure, and subsequent intubation, the patient was transferred to our intensive care unit. He was seen in the emergency de partment. He apparently was on BiPAP at home but could not tolerate it. Currently, the patient is on the volume assist control modality, rate 18, tidal volume 500, FiO2 75% to be dropped down to 50%, and PEEP of 5. Blood gases show pO2 70, pCO2 43, and a pH is 7.57. Currently, the patient's on propofol at 35 mcg/kg/m, heparin via weightbase protocol, and saline at 10 mL an hour. Based on his medications, the patient appears to have hypothyroidism, hyperlipidemia, hypertension, anemia, vitamin D deficiency, gastroesophageal reflux disease, dizziness, and congestive heart failure. White count is 7.2, hemoglobin 16.2, hematocrit 49.1, and platelet count 170,000. PTT is 54. Arterial blood gases have been noted. Sodium 132, potassium 3.1, chlorides 89, CO2 34, anion gap 9, BUN 19, creatinine 0.62. The N-terminal proBNP is 1210. TSH is 1.2. Chest x- ray my opinion shows evidence of interstitial edema, left lower lobe atelectasis versus pneumonia, and small bilateral effusions, left greater than right. The chest x-ray is not much change from the initial chest x-ray. Progress note dated 02/25/2021. 85-year-old male transferred down from [facility]. The patient was apparently evaluated and treated there for a couple days for shortness of breath, thought to be secondary to both CHF and COPD. Because of worsening hypoxemic and hypercapnic respiratory failure, the patient was intubated, and transferred down to our intensive care unit for further treatment and management. Today, the patient is seen in room 254. Remains on the ventilator. He is on the volume assist control mode, rate 18, tidal volume 500, FiO2 40%, and PEEP of 5. Arterial blood gases show pO2 70, pCO2 41, and a pH is 7.58. Currently, the patient is off of sedation. The patient is getting heparin via weightbase protocol, and no additional IV fluids. The patient has not started on tube feeds as yet. Today, we will do a spontaneous breathing trial on pressure support of 5 cm water, and CPAP of 5 cm water. This will include a full set a weaning parameters, and a cuff leak test as well as a rapid shallow breathing index. White count 10.9, hemoglobin 16.6, hematocrit 50.2, platelet count 174,000. PTT is 44.2. Sodium 132, potassium 2.8, chlorides 90, CO2 33, anion gap 9, BUN 25, creatinine 0.75. Chest x-ray is reviewed, it is unchanged from prior x-ray, and showing evidence of interstitial edema, some mild left lower lobe atelectasis, and small bilateral pleural effusions. Objective - Vital Signs Vital signs: Vital Signs Temp 98.1 F 02/25/21 08:00 Pulse 80 02/25/21 12:16 Resp 17 02/25/21 11:00 BP 136/77 02/25/21 11:00 Pulse Ox 95 02/25/21 11:00 Intake & Output 02/24/21 02/25/21 02/25/21 18:59 06:59 18:59 Intake Total 306.167 328.848 301.627 Output Total 575 1000 305 Balance -268.833 -671.152 -3.373 Weight 123.4 kg 116.6 kg Intake: IV 120 140 20 0.9 NS KVO 120 140 20 Intake, IV Titration 186.167 188.848 281.627 Amount Heparin Sod,Pork in 0.45% 186.167 NaCl 25,000 unit In 0.45 % NaCl 1 250ml.bag @ 7. 576 UNITS/KG/HR 10 mls/hr IV .Q24H [facility] Rx#: [id number] Potassium Chloride 20 meq 200 In Water For Injection 1 100ml.bag @ 50 mls/hr IVPB Q2H [facility] Rx#: [id number] propofoL 1,000 mg In 188.848 81.627 Empty Bag 1 bag @ Titrate IV .Q0M [facility] Rx#: [id number] Output: Urine 575 1000 305 Other: Voiding Method Indwelling Catheter Indwelling Catheter Indwelling Catheter ABP, PAP, CO, CI - Last Documented Arterial Blood Pressure 134/61 - Exam No acute distress, sedated, currently on the mechanical ventilator. Saturations are between 93-96%, and he has been weaned down to 40% FiO2. HEENT examination is grossly unremarkable. An orally placed endotracheal tube is noted. Neck supple. Full range of motion. No adenopathy thyromegaly or neck vein distention. Cardiovascular examination reveals regular rhythm rate. S1-S2 normal. No S3 or S4. No discernible murmur noted. Heart sounds are very distant. Heart rate 80 bpm. Lungs reveal coarse bilateral rhonchi. Bibasilar crackles are also noted. There are no wheezes. Breath sounds are equal bilaterally. Breath sounds are diminished throughout. Abdomen soft bowel sounds are heard. No masses or tenderness. Extremities are intact. No cyanosis or clubbing. Mild edema is noted. Skin is without rash or lesion. Neurologic examination is brief but nonfocal. - Labs CBC & Chem 7: 02/25/21 04:55 02/25/21 04:55 Labs: Abnormal Lab Results - Last 24 Hours (Table) 02/25/21 02/25/21 02/25/21 Range/Units 00:34 04:41 04:55 WBC 10.9 H (3.8-10.6) k/uL Neutrophils # 8.4 H (1.3-7.7) k/uL APTT (22.0-30.0) sec ABG pH 7.58 H* (7.35-7.45) ABG pO2 70 L (83-108) mmHg ABG HCO3 39 H (21-25) mmol/L ABG Total CO2 40 H (19-24) mmol/L Sodium (137-145) mmol/L Potassium (3.5-5.1) mmol/L Chloride (98-107) mmol/L Carbon Dioxide (22-30) mmol/L BUN (9-20) mg/dL Glucose (74-99) mg/dL POC Glucose (mg/dL) 126 H (75-99) mg/dL 02/25/21 02/25/21 02/25/21 Range/Units 04:55 04:55 11:57 WBC (3.8-10.6) k/uL Neutrophils # (1.3-7.7) k/uL APTT 44.2 H (22.0-30.0) sec ABG pH (7.35-7.45) ABG pO2 (83-108) mmHg ABG HCO3 (21-25) mmol/L ABG Total CO2 (19-24) mmol/L Sodium 132 L (137-145) mmol/L Potassium 2.8 L (3.5-5.1) mmol/L Chloride 90 L (98-107) mmol/L Carbon Dioxide 33 H (22-30) mmol/L BUN 25 H (9-20) mg/dL Glucose 132 H (74-99) mg/dL POC Glucose (mg/dL) 117 H (75-99) mg/dL Microbiology - Last 24 Hours (Table) 02/23/21 23:41 Gram Stain - Preliminary Sputum Sputum Culture - Preliminary Assessment and Plan Assessment: Acute hypoxemic respiratory failure, likely multifactorial, in part related to underlying COPD exacerbation and also acute congestive heart failure, status post intubation and mechanical ventilation on February 23. Status post successful extubation on 02/25/2021. 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 Acute on chronic congestive heart failure. History of hypertension. History of hyperlipidemia. History of gastroesophageal reflux disease. History of hypothyroidism. History of anemia. Plan: Plan dated 02/24/2021. The patient has a left radial arterial line placed, for closer monitoring of blood pressure and but gases. In addition, the patient a left subclavian triple-lumen catheter placed. This will allow us to provide him with fluids and pressors, and also monitor his central venous pressure. The FiO2 has been weaned down to 50%. The patient is placed on albuterol sulfate and ipratropium bromide, every 4 hours [id number]. Cardiology has been consulted. We will start tube feeds. Prognosis is guarded. Additional recommendations and suggestions are forthcoming. We will continue to see this patient and make recommendations where appropriate. Plan dated 02/25/2021. This morning, the patient was weaned off his sedation. He was very awake and alert. We are going to do a spontaneous breathing trial 5 cm water pressure support and 5 cm water CPAP. The patient will have a full set a weaning parameters, as well as a cuff leak test and rapid shallow breathing index. His numbers look good, the patient will be extubated. Currently, the patient is off sedation. Gas exchange is reasonable. The patient does have a alkalosis. In part it relates to volume contraction and hypokalemia. These 2 things will be c orrected. Additional recommendations and suggestions are forthcoming. Once extubated, unnecessary medications will be removed from the list. Time with Patient: Greater than 30
[2021-02-25 13:29] LABS: Chol/HDL Ratio 3.97; LDL Cholesterol,Calculated 85.6 mg/dL (0.0-131.0); VLDL Calculation 24.4 mg/dL (5.00-40.00)
--- NOTE | 2021-02-25 14:25 | P.PN ---
Subjective Patient was seen and evaluated by me this morning. He is on minimal vent settings. He was taking off of sedation and is alert and following commands. Plan for extubation was later this morning. Objective - Vital Signs Vital signs: Vital Signs Temp 98.1 F 02/25/21 08:00 Pulse 82 02/25/21 13:00 Resp 15 02/25/21 13:00 BP 133/80 02/25/21 13:00 Pulse Ox 98 02/25/21 13:00 Intake & Output 02/24/21 02/25/21 02/25/21 18:59 06:59 18:59 Intake Total 306.167 328.848 301.627 Output Total 575 1000 305 Balance -268.833 -671.152 -3.373 Weight 123.4 kg 116.6 kg Intake: IV 120 140 20 0.9 NS KVO 120 140 20 Intake, IV Titration 186.167 188.848 281.627 Amount Heparin Sod,Pork in 0.45% 186.167 NaCl 25,000 unit In 0.45 % NaCl 1 250ml.bag @ 7. 576 UNITS/KG/HR 10 mls/hr IV .Q24H [facility] Rx#: [id number] Potassium Chloride 20 meq 200 In Water For Injection 1 100ml.bag @ 50 mls/hr IVPB Q2H [facility] Rx#: [id number] propofoL 1,000 mg In 188.848 81.627 Empty Bag 1 bag @ Titrate IV .Q0M [facility] Rx#: [id number] Output: Urine 575 1000 305 Other: Voiding Method Indwelling Catheter Indwelling Catheter Indwelling Catheter ABP, PAP, CO, CI - Last Documented Arterial Blood Pressure 123/52 - Exam General: The patient is alert and following commands Eye: there is normal conjunctiva bilaterally. Neck: The neck is supple, there is no JVD. Cardiovascular: Normal S1-S2, no S3-S4, no murmurs. Respiratory: Lungs clear to auscultation bilaterally with mechanical ventilator sounds Gastrointestinal: Abdomen is soft, nontender Musculoskeletal: There is no pedal edema. Skin: Skin is warm and dry - Labs CBC & Chem 7: 02/25/21 04:55 02/25/21 04:55 Labs: Abnormal Lab Results - Last 24 Hours (Table) 02/24/21 02/25/21 02/25/21 Range/Units 07:43 00:34 04:41 WBC (3.8-10.6) k/uL Neutrophils # (1.3-7.7) k/uL APTT (22.0-30.0) sec ABG pH 7.58 H* (7.35-7.45) ABG pO2 70 L (83-108) mmHg ABG HCO3 39 H (21-25) mmol/L ABG Total CO2 40 H (19-24) mmol/L Sodium (137-145) mmol/L Potassium (3.5-5.1) mmol/L Chloride (98-107) mmol/L Carbon Dioxide (22-30) mmol/L BUN (9-20) mg/dL Glucose (74-99) mg/dL POC Glucose (mg/dL) 126 H (75-99) mg/dL HDL Cholesterol 37.0 L (40.0-60.0) mg/dL 02/25/21 02/25/21 02/25/21 Range/Units 04:55 04:55 04:55 WBC 10.9 H (3.8-10.6) k/uL Neutrophils # 8.4 H (1.3-7.7) k/uL APTT 44.2 H (22.0-30.0) sec ABG pH (7.35-7.45) ABG pO2 (83-108) mmHg ABG HCO3 (21-25) mmol/L ABG Total CO2 (19-24) mmol/L Sodium 132 L (137-145) mmol/L Potassium 2.8 L (3.5-5.1) mmol/L Chloride 90 L (98-107) mmol/L Carbon Dioxide 33 H (22-30) mmol/L BUN 25 H (9-20) mg/dL Glucose 132 H (74-99) mg/dL POC Glucose (mg/dL) (75-99) mg/dL HDL Cholesterol (40.0-60.0) mg/dL 02/25/21 Range/Units 11:57 WBC (3.8-10.6) k/uL Neutrophils # (1.3-7.7) k/uL APTT (22.0-30.0) sec ABG pH (7.35-7.45) ABG pO2 (83-108) mmHg ABG HCO3 (21-25) mmol/L ABG Total CO2 (19-24) mmol/L Sodium (137-145) mmol/L Potassium (3.5-5.1) mmol/L Chloride (98-107) mmol/L Carbon Dioxide (22-30) mmol/L BUN (9-20) mg/dL Glucose (74-99) mg/dL POC Glucose (mg/dL) 117 H (75-99) mg/dL HDL Cholesterol (40.0-60.0) mg/dL Microbiology - Last 24 Hours (Table) 02/23/21 23:41 Gram Stain - Preliminary Sputum Sputum Culture - Preliminary Assessment and Plan Assessment: This is a 85-year-old male with complex past medical history noted below who presented from an outside hospital with worsening shortness of breath and was found to have severe hypoxia and hypercapnia requiring intubation and mechanical ventilation. Patient is admitted to the ICU for further management of his medical problems noted below 1. Acute hypoxic and hypercapnic respiratory failure requiring mechanical ventilation management and ICU team currently on minimal vent settings 2. Acute systolic CHF exacerbation: Started on IV Lasix. Echocardiogram showed EF of 40-45%. Cardiology following closely. Patient is diuresing well. 3. Troponin elevation, most likely non-thrombotic troponin leak secondary to above. Cardiology consulted. 4. Underlying COPD with mild exacerbation, given IV steroids on presentation. Steroid discontinued secondary to heart failure exacerbation. Continue bronchodilators. 5. Hypokalemia, replacement therapy protocol. Magnesium level within normal range 6. Chronic medical problems: Coronary artery disease status post CABG, Hypertension, hyperlipidemia, GERD, hypothyroidism Today, I reviewed his medication list and lab work results. Potassium and magnesium replacement protocols ordered. Repeat lab work in the morning. Continue ICU care.
[2021-02-25 15:56] LABS: Calcium 9.1 mg/dL (8.4-10.2)
[2021-02-25] MEDS: HEPARIN SOD,PORK IN 0.45% NACL 25,000 UNIT in 0.45% NACL 1 250ML.BAG IV SCH (16:34)
[2021-02-25 16:50] LABS: Potassium 3.6 mmol/L (3.5-5.1)
--- NOTE | 2021-02-25 17:04 | P.PN ---
Subjective Progress Note Date: 02/25/21 This is a 85-year-old gentleman with history of ischemic heart disease and also COPD who was transferred to this hospital with hypercarbic respiratory failure. Patient required intubation. Patient's EKG initially showed left bundle-branch block, which seemed to be rate related. Subsequent EKG showed deep T-wave inversion in anterior leads. His echo Cardigan showed an ejection fraction of 40-45% and there is atypical motion of the septum related to Age and also left bundle. His troponins are mildly elevated. Patient seemed to be more alert today, the commanding officer traffic division on attempting to see if he can be extubated. Patient is maintaining sinus rhythm. At this point we'll continue with current medical therapy. His proBNP was only 1210 which is probably normal for this patient. Chest x-ray did not show any significant changes. We'll follow Objective - Vital Signs Vital signs: Vital Signs Temp 98.9 F 02/25/21 16:00 Pulse 88 02/25/21 16:16 Resp 20 02/25/21 16:00 BP 151/89 02/25/21 16:00 Pulse Ox 94 L 02/25/21 16:00 Intake & Output 02/24/21 02/25/21 02/25/21 18:59 06:59 18:59 Intake Total 306.167 328.848 601.627 Output Total 575 1000 530 Balance -268.833 -671.152 71.627 Weight 123.4 kg 116.6 kg Intake: IV 120 140 20 0.9 NS KVO 120 140 20 Intake, IV Titration 186.167 188.848 581.627 Amount Heparin Sod,Pork in 0.45% 186.167 250 NaCl 25,000 unit In 0.45 % NaCl 1 250ml.bag @ 7. 576 UNITS/KG/HR 10 mls/hr IV .Q24H [facility] Rx#: [id number] Potassium Chloride 20 meq 250 In Water For Injection 1 100ml.bag @ 50 mls/hr IVPB Q2H [facility] Rx#: [id number] propofoL 1,000 mg In 188.848 81.627 Empty Bag 1 bag @ Titrate IV .Q0M [facility] Rx#: [id number] Output: Urine 575 1000 530 Other: Voiding Method Indwelling Catheter Indwelling Catheter Indwelling Catheter ABP, PAP, CO, CI - Last Documented Arterial Blood Pressure 143/67 - Exam GENERAL EXAM: Patient is alert and intubated HEENT: Normocephalic. Normal reaction of pupils, equal size, normal range of extraocular motion. No erythema or exudates in the throat. NECK: No masses, no nuchal rigidity. CHEST: No chest wall deformity. LUNGS: Diminished breath sounds HEART: S1 and S2 normal with no audible mumurs or gallops. Regular rhythm, femorals equal on both sides.. ABDOMEN: No hepatosplenomegaly, normal bowel sounds, no guarding or rigidity. SKIN: No rashes CENTRAL NERVOUS SYSTEM: Not assessed EXTREMITIES: No cyanosis, clubbing or edema. - Labs CBC & Chem 7: 02/25/21 04:55 02/25/21 15:30 Labs: Abnormal Lab Results - Last 24 Hours (Table) 02/24/21 02/25/21 02/25/21 Range/Units 07:43 00:34 04:41 WBC (3.8-10.6) k/uL Neutrophils # (1.3-7.7) k/uL APTT (22.0-30.0) sec ABG pH 7.58 H* (7.35-7.45) ABG pO2 70 L (83-108) mmHg ABG HCO3 39 H (21-25) mmol/L ABG Total CO2 40 H (19-24) mmol/L Sodium (137-145) mmol/L Potassium (3.5-5.1) mmol/L Chloride (98-107) mmol/L Carbon Dioxide (22-30) mmol/L BUN (9-20) mg/dL Glucose (74-99) mg/dL POC Glucose (mg/dL) 126 H (75-99) mg/dL HDL Cholesterol 37.0 L (40.0-60.0) mg/dL 02/25/21 02/25/21 02/25/21 Range/Units 04:55 04:55 04:55 WBC 10.9 H (3.8-10.6) k/uL Neutrophils # 8.4 H (1.3-7.7) k/uL APTT 44.2 H (22.0-30.0) sec ABG pH (7.35-7.45) ABG pO2 (83-108) mmHg ABG HCO3 (21-25) mmol/L ABG Total CO2 (19-24) mmol/L Sodium 132 L (137-145) mmol/L Potassium 2.8 L (3.5-5.1) mmol/L Chloride 90 L (98-107) mmol/L Carbon Dioxide 33 H (22-30) mmol/L BUN 25 H (9-20) mg/dL Glucose 132 H (74-99) mg/dL POC Glucose (mg/dL) (75-99) mg/dL HDL Cholesterol (40.0-60.0) mg/dL 02/25/21 02/25/21 Range/Units 11:57 15:30 WBC (3.8-10.6) k/uL Neutrophils # (1.3-7.7) k/uL APTT (22.0-30.0) sec ABG pH (7.35-7.45) ABG pO2 (83-108) mmHg ABG HCO3 (21-25) mmol/L ABG Total CO2 (19-24) mmol/L Sodium 134 L (137-145) mmol/L Potassium (3.5-5.1) mmol/L Chloride 92 L (98-107) mmol/L Carbon Dioxide 35 H (22-30) mmol/L BUN 26 H (9-20) mg/dL Glucose 122 H (74-99) mg/dL POC Glucose (mg/dL) 117 H (75-99) mg/dL HDL Cholesterol (40.0-60.0) mg/dL Microbiology - Last 24 Hours (Table) 02/23/21 23:41 Gram Stain - Preliminary Sputum Sputum Culture - Preliminary Assessment and Plan (1) CAD (coronary artery disease) Current Visit: Yes Status: Acute Code(s): I25.10 - ATHSCL HEART DISEASE OF [place] CORONARY ARTERY W/O ANG PCTRS SNOMED Code(s): 90926868 (2) Acute respiratory failure with hypoxia and hypercarbia Current Visit: Yes Status: Acute Code(s): J96.01 - ACUTE RESPIRATORY FAILURE WITH HYPOXIA; J96.02 - ACUTE RESPIRATORY FAILURE WITH HYPERCAPNIA SNOMED Code(s): 059120519 (3) Elevated troponin Current Visit: Yes Status: Acute Code(s): R77.8 - OTHER SPECIFIED ABNORM ALITIES OF PLASMA PROTEINS SNOMED Code(s): 836104217 (4) Sinus bradycardia Current Visit: Yes Status: Acute Code(s): R00.1 - BRADYCARDIA, UNSPECIFIED SNOMED Code(s): 57655100 (5) Elevated troponin Current Visit: Yes Status: Acute Code(s): R77.8 - OTHER SPECIFIED ABNORMALITIES OF PLASMA PROTEINS SNOMED Code(s): 264725886 Plan: Continue current medical therapy. Patient is alert. Piece Dyeing Machine Tender is attempting to extubate him. We'll continue with ANNABELLA inhibitor, beta, beta blockers, aspirin and lipid-lowering agent. Further recommendations depend upon the clinical course
[2021-02-25 17:56] LABS: Glucose,Whole Blood 102 mg/dL (75-99)
[2021-02-25] MEDS ORDERED: NOREPINEPHRINE 4 MG in SODIUM CHLORIDE 0.9% 250 ML IV SCH (19:00)
[2021-02-25] MEDS: ASPIRIN 81 MG PO SCH (21:05)
[2021-02-25] MEDS: FUROSEMIDE 10 MG/ML 2 ML VIAL IV SCH (21:05)
[2021-02-25] MEDS: ATORVASTATIN 10 MG TAB PO SCH (21:05)
[2021-02-25] MEDS ORDERED: POTASSIUM CHLORIDE 20 MEQ in WATER FOR INJECTION 1 100ML.BAG IVPB STA (21:17)
[2021-02-26 03:43] LABS: HGB 16.1 gm/dL (13.0-17.5); MCHC 32.2 g/dL (31.0-37.0); MCV 93.2 fL (80.0-100.0); Mean Platelet Volume 7.4; Platelet Count 183 k/uL (150-450); RBC 5.37 m/uL (4.30-5.90); WBC 9.8 k/uL (3.8-10.6)
[2021-02-26 04:12] LABS: African American GFR (CKD) >90 (>60 ml/min/1.73 sqM); Anion Gap 7 mmol/L; Blood Urea Nitrogen 27 mg/dL (9-20); Calcium 8.8 mg/dL (8.4-10.2); Carbon Dioxide 35 mmol/L (22-30); Chloride 91 mmol/L (98-107); Glucose 124 mg/dL (74-99); Non-African American GFR(CKD) 79 (>60 ml/min/1.73 sqM); Potassium 3.3 mmol/L (3.5-5.1); Sodium 133 mmol/L (137-145)
[2021-02-26] MEDS: POTASSIUM CHLORIDE 20 MEQ in WATER FOR INJECTION 1 100ML.BAG IVPB SCH ×2 (04:16→06:34)
[2021-02-26] MEDS: carvediloL 12.5 MG TAB PO SCH ×2 (06:34→20:49)
[2021-02-26] MEDS: LEVOTHYROXINE 75 MCG TAB PO SCH (06:34)
--- NOTE | 2021-02-26 06:38 | XR ---
EXAMINATION TYPE: XR chest 1V portable DATE OF EXAM: 02/26/2021 COMPARISON: 02/25/2021 HISTORY: Tube placement TECHNIQUE: Single frontal view of the chest is obtained. FINDINGS: There has been interval removal of the ET tube. There are persistent bilateral pleural eff usions left greater than right, stable when compared to previous. The upper and midlung hess are cl ear. There is no pneumothorax. There are bilateral shoulder prostheses. There are median sternotomy wires otherwise the osseous stru ctures are intact. There is a PICC line entering the left upper extremity and terminating in SVC/RA junction. IMPRESSION: Interval removal of the ET tube otherwise the chest is stable with bilateral pleural ef fusions as described above.
[2021-02-26] MEDS: IPRATROPIUM-ALBUTEROL 3 ML NEB INHALATION SCH ×4 (07:23→19:29)
[2021-02-26] MEDS: PANTOPRAZOLE 40 MG/10 ML VIAL IVP SCH (08:41)
[2021-02-26] MEDS: lisinopriL 5 MG TAB PO SCH (08:41)
--- NOTE | 2021-02-26 12:31 | P.PN ---
Subjective Progress Note Date: 02/26/21 Principal diagnosis: Respiratory failure. Pulmonary/critical care consultation dated 02/24/2021. 85-year-old male, transferred down from [facility]. The patient was apparently evaluated and treated there for a couple days for shortness of breath, secondary to both COPD and CHF. Because of worsening hypoxemic and hypercapnic respiratory failure, and subsequent intubation, the patient was transferred to our intensive care unit. He was seen in the emergency de partment. He apparently was on BiPAP at home but could not tolerate it. Currently, the patient is on the volume assist control modality, rate 18, tidal volume 500, FiO2 75% to be dropped down to 50%, and PEEP of 5. Blood gases show pO2 70, pCO2 43, and a pH is 7.57. Currently, the patient's on propofol at 35 mcg/kg/m, heparin via weightbase protocol, and saline at 10 mL an hour. Based on his medications, the patient appears to have hypothyroidism, hyperlipidemia, hypertension, anemia, vitamin D deficiency, gastroesophageal reflux disease, dizziness, and congestive heart failure. White count is 7.2, hemoglobin 16.2, hematocrit 49.1, and platelet count 170,000. PTT is 54. Arterial blood gases have been noted. Sodium 132, potassium 3.1, chlorides 89, CO2 34, anion gap 9, BUN 19, creatinine 0.62. The N-terminal proBNP is 1210. TSH is 1.2. Chest x- ray my opinion shows evidence of interstitial edema, left lower lobe atelectasis versus pneumonia, and small bilateral effusions, left greater than right. The chest x-ray is not much change from the initial chest x-ray. Progress note dated 02/25/2021. 85-year-old male transferred down from [facility]. The patient was apparently evaluated and treated there for a couple days for shortness of breath, thought to be secondary to both CHF and COPD. Because of worsening hypoxemic and hypercapnic respiratory failure, the patient was intubated, and transferred down to our intensive care unit for further treatment and management. Today, the patient is seen in room 254. Remains on the ventilator. He is on the volume assist control mode, rate 18, tidal volume 500, FiO2 40%, and PEEP of 5. Arterial blood gases show pO2 70, pCO2 41, and a pH is 7.58. Currently, the patient is off of sedation. The patient is getting heparin via weightbase protocol, and no additional IV fluids. The patient has not started on tube feeds as yet. Today, we will do a spontaneous breathing trial on pressure support of 5 cm water, and CPAP of 5 cm water. This will include a full set a weaning parameters, and a cuff leak test as well as a rapid shallow breathing index. White count 10.9, hemoglobin 16.6, hematocrit 50.2, platelet count 174,000. PTT is 44.2. Sodium 132, potassium 2.8, chlorides 90, CO2 33, anion gap 9, BUN 25, creatinine 0.75. Chest x-ray is reviewed, it is unchanged from prior x-ray, and showing evidence of interstitial edema, some mild left lower lobe atelectasis, and small bilateral pleural effusions. Progress note dated 02/26/2021. 85-year-old male, transferred down from [facility]. The patient was apparently evaluated and treated there for a couple days, for shortness of breath, which is secondary to both CHF and COPD. Because of worsening hypoxemic and hypercapnic respiratory failure, the patient was intubated there and shipped down to our intensive care unit for further treatment. Yesterday, the patient was extubated successfully. He had excellent weaning parameters, and he had a good cuff leak. Currently, he's on 3 L nasal cannula. He's not receiving any IV fluids. His heparin drip is been turned off. CBC is completely normal. PTT is 41.8. Sodium 133, potassium 3.3, chlorides 91, CO2 35, anion gap 7, BUN 27, and creatinine 0.83. Chest x-ray shows bilateral pleural effusions. Objective - Vital Signs Vital signs: Vital Signs Temp 98.1 F 02/26/21 11:58 Pulse 70 02/26/21 11:58 Resp 15 02/26/21 11:58 BP 109/65 02/26/21 11:58 Pulse Ox 94 L 02/26/21 11:58 Intake & Output 02/25/21 02/26/21 02/26/21 18:59 06:59 18:59 Intake Total 601.627 256.362 199.065 Output Total 620 735 200 Balance -18.373 -478.638 -0.935 Weight 120.3 kg Intake: IV 20 110 10 0.9 NS KVO 20 110 10 Intake, IV Titration 581.627 146.362 189.065 Amount Heparin Sod,Pork in 0.45% 250 146.362 89.065 NaCl 25,000 unit In 0.45 % NaCl 1 250ml.bag @ 7. 576 UNITS/KG/HR 10 mls/hr IV .Q24H [facility] Rx#: [id number] Potassium Chloride 20 meq 250 In Water For Injection 1 100ml.bag @ 50 mls/hr IVPB Q2H [facility] Rx#: [id number] Potassium Chloride 20 meq 100 In Water For Injection 1 100ml.bag @ 50 mls/hr IVPB Q2H [facility] Rx#: [id number] propofoL 1,000 mg In 81.627 Empty Bag 1 bag @ Titrate IV .Q0M [facility] Rx#: [id number] Output: Urine 620 735 200 Other: Voiding Method Indwelling Catheter Indwelling Catheter Indwelling Catheter ABP, PAP, CO, CI - Last Documented Arterial Blood Pressure 101/37 - Exam No acute distress, currently on 3 L nasal cannula, with excellent saturations. HEENT examination is grossly unremarkable. Neck supple. Full range of motion. No adenopathy thyromegaly or neck vein distention. Cardiovascular examination reveals regular rhythm rate. S1-S2 normal. No S3 or S4. No discernible murmur noted. Heart sounds are very distant. Heart rate 63 bpm. Lungs reveal bilateral scattered rhonchi and bibasilar crackles. Breath sounds are equal bilaterally. No wheezes. Abdomen soft bowel sounds are heard. No masses or tenderness. Extremities are intact. No cyanosis or clubbing. Mild edema is noted. Skin is without rash or lesion. Neurologic examination is brief but nonfocal. - Labs CBC & Chem 7: 02/26/21 03:30 02/26/21 03:30 Labs: Abnormal Lab Results - Last 24 Hours (Table) 02/24/21 02/25/21 02/25/21 Range/Units 07:43 15:30 17:55 APTT (22.0-30.0) sec Sodium 134 L (137-145) mmol/L Potassium (3.5-5.1) mmol/L Chloride 92 L (98-107) mmol/L Carbon Dioxide 35 H (22-30) mmol/L BUN 26 H (9-20) mg/dL Glucose 122 H (74-99) mg/dL POC Glucose (mg/dL) 102 H (75-99) mg/dL HDL Cholesterol 37.0 L (40.0-60.0) mg/dL 02/26/21 02/26/21 Range/Units 03:30 03:30 APTT 41.8 H (22.0-30.0) sec Sodium 133 L (137-145) mmol/L Potassium 3.3 L (3.5-5.1) mmol/L Chloride 91 L (98-107) mmol/L Carbon Dioxide 35 H (22-30) mmol/L BUN 27 H (9-20) mg/dL Glucose 124 H (74-99) mg/dL POC Glucose (mg/dL) (75-99) mg/dL HDL Cholesterol (40.0-60.0) mg/dL Microbiology - Last 24 Hours (Table) 02/23/21 23:41 Gram Stain - Final Sputum Sputum Culture - Final Assessment and Plan Assessment: Acute hypoxemic respiratory failure, likely multifactorial, in part related to underlying COPD exacerbation and also acute congestive heart failure, status po st intubation and mechanical ventilation on February 23. Status post successful extubation on 02/25/2021. 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 Acute on chronic congestive heart failure. History of hypertension. History of hyperlipidemia. History of gastroesophageal reflux disease. History of hypothyroidism. History of anemia. Plan: Plan dated 02/24/2021. The patient has a left radial arterial line placed, for closer monitoring of blood pressure and but gases. In addition, the patient a left subclavian triple-lumen catheter placed. This will allow us to provide him with fluids and pressors, and also monitor his central venous pressure. The FiO2 has been weaned down to 50%. The patient is placed on albuterol sulfate and ipratropium bromide, every 4 hours [id number]. Cardiology has been consulted. We will start tube feeds. Prognosis is guarded. Additional recommendations and suggestions are forthcoming. We will continue to see this patient and make recommendations where appropriate. Plan dated 02/25/2021. This morning, the patient was weaned off his sedation. He was very awake and alert. We are going to do a spontaneous breathing trial 5 cm water pressure support and 5 cm water CPAP. The patient will have a full set a weaning parameters, as well as a cuff leak test and rapid shallow breathing index. His numbers look good, the patient will be extubated. Currently, the patient is off sedation. Gas exchange is reasonable. The patient does have a alkalosis. In part it relates to volume contraction and hypokalemia. These 2 things will be corrected. Additional recommendations and suggestions are forthcoming. Once extubated, unnecessary medications will be removed from the list. Plan dated 02/26/2021. The patient was extubated successfully yesterday, February 24. Currently he is on 3 L nasal cannula. He is in no acute distress. He's not receiving any IV fluids. The heparin drip was turned off. Labs and x-rays are reviewed. Currently, he's feeling rather well. We added back his normal Bumex dose of 1 mg twice a day. We DC the Lasix. We will restart his usual home medications. Additional recommendations and suggestions are forthcoming. We will continue to follow make recommendations where appropriate. We will also add Symbicort to the patient's regimen. Time with Patient: Less than 30
--- NOTE | 2021-02-26 12:47 | P.PN ---
Subjective Progress Note Date: 02/26/21 This is a 85-year-old gentleman with history of ischemic heart disease and also COPD who was transferred to this hospital with hypercarbic respiratory failure. Patient required intubation. Patient's EKG initially showed left bundle-branch block, which seemed to be rate related. Subsequent EKG showed deep T-wave inversion in anterior leads. His echo Cardigan showed an ejection fraction of 40-45% and there is atypical motion of the septum related to Age and also left bundle. His troponins are mildly elevated. Patient seemed to be more alert today, the lumber straightener on attempting to see if he can be extubated. Patient is maintaining sinus rhythm. At this point we'll continue with current medical therapy. His proBNP was only 1210 which is probably normal for this patient. Chest x-ray did not show any significant changes. We'll follow. 02/26/2021: This patient seemed to be doing much better. Patient is extubated and sitting in the chair. Denies any chest pain. Doesn't appear to be in acute respiratory distress. Overall patient clinical condition is improved. His lungs show some diminished air exchange. Heart is regular. His been maintaining sinus rhythm. He'll be discontinued from heparin. His troponins are mildly elevated. Patient's most probably is admitted with respiratory failure related to exacerbation of COPD patient does have some cardiomyopathy and chronic CHF. We'll continue his chronic medication including Bumex. Probably transfer to telemetry unit, so Objective - Vital Signs Vital signs: Vital Signs Temp 98.1 F 02/26/21 11:58 Pulse 70 02/26/21 11:58 Resp 15 02/26/21 11:58 BP 109/65 02/26/21 11:58 Pulse Ox 94 L 02/26/21 11:58 Intake & Output 02/25/21 02/26/21 02/26/21 18:59 06:59 18:59 Intake Total 601.627 256.362 199.065 Output Total 620 735 200 Balance -18.373 -478.638 -0.935 Weight 120.3 kg Intake: IV 20 110 10 0.9 NS KVO 20 110 10 Intake, IV Titration 581.627 146.362 189.065 Amount Heparin Sod,Pork in 0.45% 250 146.362 89.065 NaCl 25,000 unit In 0.45 % NaCl 1 250ml.bag @ 7. 576 UNITS/KG/HR 10 mls/hr IV .Q24H [facility] Rx#: [id number] Potassium Chloride 20 meq 250 In Water For Injection 1 100ml.bag @ 50 mls/hr IVPB Q2H [facility] Rx#: [id number] Potassium Chloride 20 meq 100 In Water For Injection 1 100ml.bag @ 50 mls/hr IVPB Q2H [facility] Rx#: [id number] propofoL 1,000 mg In 81.627 Empty Bag 1 bag @ Titrate IV .Q0M [facility] Rx#: [id number] Output: Urine 620 735 200 Other: Voiding Method Indwelling Catheter Indwelling Catheter Indwelling Catheter ABP, PAP, CO, CI - Last Documented Arterial Blood Pressure 101/37 - Exam GENERAL EXAM: Patient is alert and intubated HEENT: Normocephalic. Normal reaction of pupils, equal size, normal range of extraocular motion. No erythema or exudates in the throat. NECK: No masses, no nuchal rigidity. CHEST: No chest wall deformity. LUNGS: Diminished breath sounds HEART: S1 and S2 normal with no audible mumurs or gallops. Regular rhythm, femorals equal on both sides.. ABDOMEN: No hepatosplenomegaly, normal bowel sounds, no guarding or rigidity. SKIN: No rashes CENTRAL NERVOUS SYSTEM: Not assessed EXTREMITIES: No cyanosis, clubbing or edema. - Labs CBC & Chem 7: 02/26/21 03:30 02/26/21 03:30 Labs: Abnormal Lab Results - Last 24 Hours (Table) 02/24/21 02/25/21 02/25/21 Range/Units 07:43 15:30 17:55 APTT (22.0-30.0) sec Sodium 134 L (137-145) mmol/L Potassium (3.5-5.1) mmol/L Chloride 92 L (98-107) mmol/L Carbon Dioxide 35 H (22-30) mmol/L BUN 26 H (9-20) mg/dL Glucose 122 H (74-99) mg/dL POC Glucose (mg/dL) 102 H (75-99) mg/dL HDL Cholesterol 37.0 L (40.0-60.0) mg/dL 02/26/21 02/26/21 Range/Units 03:30 03:30 APTT 41.8 H (22.0-30.0) sec Sodium 133 L (137-145) mmol/L Potassium 3.3 L (3.5-5.1) mmol/L Chloride 91 L (98-107) mmol/L Carbon Dioxide 35 H (22-30) mmol/L BUN 27 H (9-20) mg/dL Glucose 124 H (74-99) mg/dL POC Glucose (mg/dL) (75-99) mg/dL HDL Cholesterol (40.0-60.0) mg/dL Microbiology - Last 24 Hours (Table) 02/23/21 23:41 Gram Stain - Final Sputum Sputum Culture - Final Assessment and Plan (1) CAD (coronary artery disease) Current Visit: Yes Status: Acute Code(s): I25.10 - ATHSCL HEART DISEASE OF [place] CORONARY ARTERY W/O ANG PCTRS SNOMED Code(s): 19617062 (2) Acute respiratory failure with hypoxia and hypercarbia Current Visit: Yes Status: Acute Code(s): J96.01 - ACUTE RESPIRATORY FAILURE WITH HYPOXIA; J96.02 - ACUTE RESPIRATORY FAILURE WITH HYPERCAPNIA SNOMED Code(s): 951704778 (3) Elevated troponin Current Visit: Yes Status: Acute Code(s): R77.8 - OTHER SPECIFIED ABNORMALITIES OF PLASMA PROTEINS SNOMED Code(s): 986955855 (4) Sinus bradycardia Current Visit: Yes Status: Acute Code(s): R00.1 - BRADYCARDIA, UNSPECIFIED SNOMED Code(s): 42099092 (5) Elevated troponin Current Visit: Yes Status: Acute Code(s): R77.8 - OTHER SPECIFIED ABNORMALITIES OF PLASMA PROTEINS SNOMED Code(s): 382122290 Plan: Patient condition has improved. No complaints of chest pain or undue shortness of breath. Patient is maintaining sinus rhythm. Patient could be transferred to telemetry unit. Further recommendation will depend upon clinical course
--- NOTE | 2021-02-26 13:39 | P.PN ---
Subjective Patient was sitting in the chair when I saw her. He is awake and alert. Does not have any complaints this morning. Objective - Vital Signs Vital signs: Vital Signs Temp 98.1 F 02/26/21 11:58 Pulse 70 02/26/21 11:58 Resp 15 02/26/21 11:58 BP 109/65 02/26/21 11:58 Pulse Ox 94 L 02/26/21 11:58 Intake & Output 02/25/21 02/26/21 02/26/21 18:59 06:59 18:59 Intake Total 601.627 256.362 199.065 Output Total 620 735 200 Balance -18.373 -478.638 -0.935 Weight 120.3 kg Intake: IV 20 110 10 0.9 NS KVO 20 110 10 Intake, IV Titration 581.627 146.362 189.065 Amount Heparin Sod,Pork in 0.45% 250 146.362 89.065 NaCl 25,000 unit In 0.45 % NaCl 1 250ml.bag @ 7. 576 UNITS/KG/HR 10 mls/hr IV .Q24H [facility] Rx#: [id number] Potassium Chloride 20 meq 250 In Water For Injection 1 100ml.bag @ 50 mls/hr IVPB Q2H [facility] Rx#: [id number] Potassium Chloride 20 meq 100 In Water For Injection 1 100ml.bag @ 50 mls/hr IVPB Q2H [facility] Rx#: [id number] propofoL 1,000 mg In 81.627 Empty Bag 1 bag @ Titrate IV .Q0M [facility] Rx#: [id number] Output: Urine 620 735 200 Other: Voiding Method Indwelling Catheter Indwelling Catheter Indwelling Catheter ABP, PAP, CO, CI - Last Documented Arterial Blood Pressure 101/37 - Exam General: The patient is awake and alert, in no distress Eye: there is normal conjunctiva bilaterally. Neck: The neck is supple, there is no JVD. Cardiovascular: Normal S1-S2, no S3-S4, no murmurs. Respiratory: Lungs clear to auscultation bilaterally Gastrointestinal: Abdomen is soft, nontender Musculoskeletal: There is no pedal edema. Neurological:. Speech is normal. Skin: Skin is warm and dry - Labs CBC & Chem 7: 02/26/21 03:30 02/26/21 03:30 Labs: Abnormal Lab Results - Last 24 Hours (Table) 02/25/21 02/25/21 02/26/21 Range/Units 15:30 17:55 03:30 APTT 41.8 H (22.0-30.0) sec Sodium 134 L (137-145) mmol/L Potassium (3.5-5.1) mmol/L Chloride 92 L (98-107) mmol/L Carbon Dioxide 35 H (22-30) mmol/L BUN 26 H (9-20) mg/dL Glucose 122 H (74-99) mg/dL POC Glucose (mg/dL) 102 H (75-99) mg/dL 02/26/21 Range/Units 03:30 APTT (22.0-30.0) sec Sodium 133 L (137-145) mmol/L Potassium 3.3 L (3.5-5.1) mmol/L Chloride 91 L (98-107) mmol/L Carbon Dioxide 35 H (22-30) mmol/L BUN 27 H (9-20) mg/dL Glucose 124 H (74-99) mg/dL POC Glucose (mg/dL) (75-99) mg/dL Microbiology - Last 24 Hours (Table) 02/23/21 23:41 Gram Stain - Final Sputum Sputum Culture - Final Assessment and Plan Assessment: This is a 85-year-old male with complex past medical history noted below who presented from an outside hospital with worsening shortness of breath and was found to have severe hypoxia and hypercapnia requiring intubation and mechanical ventilation. Patient is admitted to the ICU for further management of his medical problems noted below 1. Acute hypoxic and hypercapnic respiratory failure requiring mechanical ventilation extubated successfully on 02/25 2. Acute systolic CHF exacerbation: Started on IV Lasix. Echocardiogram showed EF of 40-45%. Cardiology following closely. Patient is diuresing well. 3. Troponin elevation, most likely non-thrombotic troponin leak secondary to above. Cardiology consulted. 4. Underlying COPD with mild exacerbation, given IV steroids on presentation. Steroid discontinued secondary to heart failure exacerbation. Continue bronchodilators. 5. Hypokalemia, replacement therapy protocol. Magnesium level within normal range 6. Chronic medical problems: Coronary artery disease status post CABG, Hypertension, hyperlipidemia, GERD, hypothyroidism Today, I reviewed his medication list and lab work results. Potassium and magnesium replacement protocols ordered. Repeat lab work in the morning. Patient may be transferred out of ICU .
[2021-02-26] MEDS ORDERED: BUMETANIDE 1 MG TAB PO SCH (15:00)
[2021-02-26] MEDS: amLODIPine 5 MG TAB PO SCH (16:16)
[2021-02-26] MEDS: POTASSIUM CHLORIDE ER 10 MEQ TAB.ER.PRT PO SCH (16:16)
[2021-02-26] MEDS: SYMBICORT 160-4.5 MCG INHALER INHALATION SCH (19:40)
[2021-02-26] MEDS: ASPIRIN 81 MG PO SCH (20:49)
[2021-02-26] MEDS: ATORVASTATIN 10 MG TAB PO SCH (20:49)
[2021-02-26] MEDS: PANTOPRAZOLE 40 MG TABLET PO SCH (20:49)
[2021-02-26] MEDS: HEPARIN SODIUM,PORCINE/PF 5,000 UNIT/0.5 ML SYRINGE SQ SCH (20:49)
[2021-02-27 04:06] LABS: HCT 46.1 % (39.0-53.0); HGB 14.9 gm/dL (13.0-17.5); MCH 30.4 pg (25.0-35.0); MCHC 32.3 g/dL (31.0-37.0); MCV 94.1 fL (80.0-100.0); Platelet Count 149 k/uL (150-450); WBC 9.1 k/uL (3.8-10.6)
[2021-02-27 04:24] LABS: African American GFR (CKD) >90 (>60 ml/min/1.73 sqM); Anion Gap 5 mmol/L; Blood Urea Nitrogen 26 mg/dL (9-20); Calcium 8.6 mg/dL (8.4-10.2); Carbon Dioxide 35 mmol/L (22-30); Chloride 88 mmol/L (98-107); Glucose 101 mg/dL (74-99); Non-African American GFR(CKD) 87 (>60 ml/min/1.73 sqM); Potassium 3.6 mmol/L (3.5-5.1); Sodium 128 mmol/L (137-145)
[2021-02-27] MEDS ORDERED: POTASSIUM CHLORIDE 20 MEQ in WATER FOR INJECTION 1 100ML.BAG IVPB STA (04:46)
[2021-02-27] MEDS: CHOLECALCIFEROL 25 MCG (1000 IU) TABLET PO SCH (06:20)
[2021-02-27] MEDS: carvediloL 12.5 MG TAB PO SCH ×2 (06:20→21:33)
[2021-02-27] MEDS: LEVOTHYROXINE 75 MCG TAB PO SCH (06:20)
[2021-02-27] MEDS: FERROUS SULFATE 325 MG TAB PO SCH (06:20)
[2021-02-27] MEDS: IPRATROPIUM-ALBUTEROL 3 ML NEB INHALATION SCH ×4 (07:30→18:52)
[2021-02-27] MEDS: SYMBICORT 160-4.5 MCG INHALER INHALATION SCH ×2 (07:30→18:52)
--- NOTE | 2021-02-27 08:12 | XR ---
EXAMINATION TYPE: XR chest 1V portable DATE OF EXAM: 02/27/2021 COMPARISON: Chest x-ray 02/26/2021 HISTORY: Abnormal chest x-ray, tube placement TECHNIQUE: Single frontal view of the chest is obtained. FINDINGS: Patient is rotated. Left subclavian central venous catheter is stable, distal tip overlyin g the right atrium. Bibasilar increased attenuation is present within the lungs, interstitium is incr eased. Lung volumes are low. The heart is largely obscured. Patient is post median sternotomy and becka ateral shoulder arthroplasties. No evident pneumothorax. IMPRESSION: Expiratory rotated exam, correlate for possible pulmonary venous hypertension and inters titial edema. May be basilar effusions, atelectasis, difficult to exclude pneumonia
--- NOTE | 2021-02-27 10:03 | P.PN ---
Subjective Progress Note Date: 02/27/21 Vinh patient is being seen in follow-up today. The patient was extubated on 02/25/2021. He is currently on 3 L about 2 by nasal cannula. Cardiac rhythm is sinus. He has a bundle-branch block pattern. Respiratory rate is in the mid 30s. Breath sounds are quite diminished in lung bases and a chest x-ray still showing bilateral pleural effusions. His sodium level is at 128. BUN is 26 with a creatinine of 0.6. White cell count is at 9.1. The patient has no chest pain. He is able to communicate and answering questions appropriately. His echocardiogram showed a combination of systolic and diastolic heart failure. Ejection fraction was around 40-45%. At the same time the patient has signif icant concentric left ventricular hypertrophy. The patient is currently on aspirin. The patient on Symbicort as maintenance regarding his COPD. I would suggest addition of IV Solu-Medrol 40 mg every 6 hours to optimize his COPD as the patient is noted to be quite bronchospastic and wheezy on today's evaluation. He remains on DuoNeb nebulized treatment [id number]. He is on Norvasc for blood pressure control. Is on Synthroid for his chronic hypothyroidism. He remains on lisinopril 5 mg by mouth daily. Electrolytes are to be replaced for now. He has been in significant amount of negative fluid balance over the past 48 hours. IV fluids are currently at KVO. provide an incentive spirometer. Objective - Vital Signs Vital signs: Vital Signs Temp 98 F 02/27/21 04:00 Pulse 72 02/27/21 07:46 Resp 18 02/27/21 04:00 BP 116/72 02/27/21 04:00 Pulse Ox 92 L 02/27/21 04:00 Intake & Output 02/26/21 02/27/21 02/27/21 18:59 06:59 18:59 Intake Total 349.065 20 Output Total 551 1450 Balance -201.935 -1430 Weight 121.1 kg Intake: IV 10 20 0.9 NS KVO 10 20 Intake, IV Titration 189.065 Amount Heparin Sod,Pork in 0.45% 89.065 NaCl 25,000 unit In 0.45 % NaCl 1 250ml.bag @ 7. 576 UNITS/KG/HR 10 mls/hr IV .Q24H [facility] Rx#: [id number] Potassium Chloride 20 meq 100 In Water For Injection 1 100ml.bag @ 50 mls/hr IVPB Q2H [facility] Rx#: [id number] Oral 150 Output: Urine 550 1450 Stool 1 Other: Voiding Method Bedside Commode Bedside Commode Urinal Urinal ABP, PAP, CO, CI - Last Documented Arterial Blood Pressure 101/37 - Exam No acute distress, currently on 3 L nasal cannula, with excellent saturations. HEENT examination is grossly unremarkable. Neck supple. Full range of motion. No adenopathy thyromegaly or neck vein distention. Cardiovascular examination reveals regular rhythm rate. S1-S2 normal. No S3 or S4. No discernible murmur noted. Heart sounds are very distant. Lungs reveal bilateral scattered rhonchi and bibasilar crackles. Breath sounds are equal bilaterally. No wheezes. Abdomen soft bowel sounds are heard. No masses or tenderness. Extremities are intact. No cyanosis or clubbing. Mild edema is noted. Skin is without rash or lesion. Neurologic examination is brief but nonfocal. - Labs CBC & Chem 7: 02/27/21 03:22 02/27/21 03:22 Labs: Abnormal Lab Results - Last 24 Hours (Table) 02/27/21 02/27/21 Range/Units 03:22 03:22 Plt Count 149 L (150-450) k/uL Sodium 128 L (137-145) mmol/L Chloride 88 L (98-107) mmol/L Carbon Dioxide 35 H (22-30) mmol/L BUN 26 H (9-20) mg/dL Glucose 101 H (74-99) mg/dL Microbiology - Last 24 Hours (Table) 02/23/21 23:41 Gram Stain - Final Sputum Sputum Culture - Final Assessment and Plan Plan: 1 Acute hypoxemic respiratory failure, likely multifactorial, in part related to underlying COPD exacerbation and also acute congestive heart failure, status post intubation and mechanical ventilation on February 23. 2 Status post successful extubation on 02/25/2021. 3 History of CAD with previous 5 vessel bypass grafting. 4 Acute on chronic congestive heart failure. Has a component of systolic and diastolic heart failure. Ejection fraction is around 40-45% and the patient also had severe concentric left ventricular hypertrophy. Please refer to the echo cardiogram for further details. 5 History of hypertension. 6 History of hyperlipidemia. 7 History of gastroesophageal reflux disease. 8 History of hypothyroidism. 9 History of anemia. 10 with a bundle-branch block pattern, awaiting a full EKG 11 hypokalemia secondary to diuresis 12 hyponatremia secondary to diuresis Plan Continue DuoNeb nebulized treatments around the clock There is a component of COPD in combination with CHF. Continued to treat this patient with bronchodilators. Add IV Solu Medrol 40 mg every 6 hours. This will be given over the next 24 hours. Meanwhile, continue the diuretics\replace potassium Monitor sodium levels Continue lisinopril and Norvasc for blood pressure control Continue Synthroid Provide the patient incentive spirometer Echocardiogram was noted Patient was extubated on 02/25/2021 We'll continue to follow \
[2021-02-27] MEDS: BUMETANIDE 1 MG TAB PO SCH (10:49)
[2021-02-27] MEDS: ACETAMINOPHEN TAB 500 MG TAB PO SCH (10:49)
[2021-02-27] MEDS: HEPARIN SODIUM,PORCINE/PF 5,000 UNIT/0.5 ML SYRINGE SQ SCH ×2 (10:53→21:33)
[2021-02-27] MEDS: lisinopriL 5 MG TAB PO SCH (10:53)
[2021-02-27] MEDS: MECLIZINE 25 MG TAB PO SCH (10:53)
[2021-02-27] MEDS: POTASSIUM CHLORIDE ER 10 MEQ TAB.ER.PRT PO SCH ×2 (10:54→17:21)
[2021-02-27] MEDS: amLODIPine 5 MG TAB PO SCH ×2 (10:54→17:21)
[2021-02-27] MEDS: methylPREDNISolone SOD SUCCI 125 MG/2 ML VIAL IV SCH ×2 (10:56→17:21)
--- NOTE | 2021-02-27 12:12 | PN ---
PROGRESS NOTE Mr. Bell is a patient in a respiratory failure with a combination of COPD and probably some diastolic heart failure. This patient has history of CAD prior bypass surgery with no recent episodes of angina. However when he was hospitalized with respiratory failure. He had deep T wave inversions and borderline troponin elevation which could be related to hypoxia type situation. He is asymptomatic has no chest pain shortness of breath has improved he is actually in sinus rhythm with IVCD and isolated PACs but no evidence of any T wave inversion.. From a cardiac standpoint no further intervention is necessary. We will review his echocardiogram to check LV function continue current medical regimen and pursue pulmonary management as per professor of vegetable science Nikkie Norwood and [place]. Vitals are stable. JVD of 1 cm. No carotid bruit. S1-S2 heard normally. Systolic murmur is audible at the base. Second heart sound is preserved. Lungs reveal scattered rhonchi. Abdomen is soft. Lower extremities reveal diminished pulses. Central nervous system: Limited assessment. No focal deficits. MMODL / IJN: [id number] / [facility] SERVICESJohn
--- NOTE | 2021-02-27 13:32 | P.PN ---
Subjective Patient is doing well today. He Does not have any complaints this morning. Objective - Vital Signs Vital signs: Vital Signs Temp 98 F 02/27/21 04:00 Pulse 68 02/27/21 11:26 Resp 18 02/27/21 04:00 BP 116/72 02/27/21 04:00 Pulse Ox 92 L 02/27/21 04:00 Intake & Output 02/26/21 02/27/21 02/27/21 18:59 06:59 18:59 Intake Total 349.065 20 Output Total 551 1450 Balance -201.935 -1430 Weight 121.1 kg Intake: IV 10 20 0.9 NS KVO 10 20 Intake, IV Titration 189.065 Amount Heparin Sod,Pork in 0.45% 89.065 NaCl 25,000 unit In 0.45 % NaCl 1 250ml.bag @ 7. 576 UNITS/KG/HR 10 mls/hr IV .Q24H [facility] Rx#: [id number] Potassium Chloride 20 meq 100 In Water For Injection 1 100ml.bag @ 50 mls/hr IVPB Q2H [facility] Rx#: [id number] Oral 150 Output: Urine 550 1450 Stool 1 Other: Voiding Method Bedside Commode Bedside Commode Urinal Urinal ABP, PAP, CO, CI - Last Documented Arterial Blood Pressure 101/37 - Exam General: The patient is awake and alert, in no distress Eye: there is normal conjunctiva bilaterally. Neck: The neck is supple, there is no JVD. Cardiovascular: Normal S1-S2, no S3-S4, no murmurs. Respiratory: Lungs clear to auscultation bilaterally Gastrointestinal: Abdomen is soft, nontender Musculoskeletal: There is no pedal edema. Neurological:. Speech is normal. Skin: Skin is warm and dry - Labs CBC & Chem 7: 02/27/21 03:22 02/27/21 03:22 Labs: Abnormal Lab Results - Last 24 Hours (Table) 02/27/21 02/27/21 Range/Units 03:22 03:22 Plt Count 149 L (150-450) k/uL Sodium 128 L (137-145) mmol/L Chloride 88 L (98-107) mmol/L Carbon Dioxide 35 H (22-30) mmol/L BUN 26 H (9-20) mg/dL Glucose 101 H (74-99) mg/dL Microbiology - Last 24 Hours (Table) 02/23/21 23:41 Gram Stain - Final Sputum Sputum Culture - Final Assessment and Plan Assessment: This is a 85-year-old male with complex past medical history noted below who presented from an outside hospital with worsening shortness of breath and was found to have severe hypoxia and hypercapnia requiring intubation and mechanical ventilation. Patient is admitted to the ICU for further management of his medical problems noted below 1. Acute hypoxic and hypercapnic respiratory failure requiring mechanical ventilation extubated successfully on 02/25 2. Acute systolic CHF exacerbation: Started on IV Lasix. Echocardiogram showed EF of 40-45%. Cardiology following closely. Patient is diuresing well. 3. Troponin elevation, most likely non-thrombotic troponin leak secondary to above. Cardiology consulted. 4. Underlying COPD with mild exacerbation, given IV steroids on presentation. Steroid discontinued secondary to heart failure exacerbation. Continue bronchodilators. 5. Hypokalemia, replacement therapy protocol. Magnesium level within normal range 6. Chronic medical problems: Coronary artery disease status post CABG, Hypertension, hyperlipidemia, GERD, hypothyroidism Today, I reviewed his medication list and lab work results. Potassium and magnesium replacement protocols ordered. Hold Lasix today secondary to hyponatremia and repeat lab work in the morning Patient was started on Solu-Medrol by pulmonary Patient may be transferred out of ICU .
[2021-02-27] MEDS: ASPIRIN 81 MG PO SCH (21:33)
[2021-02-27] MEDS: PANTOPRAZOLE 40 MG TABLET PO SCH (21:33)
[2021-02-27] MEDS: ATORVASTATIN 10 MG TAB PO SCH (21:33)
[2021-02-28] MEDS: methylPREDNISolone SOD SUCCI 125 MG/2 ML VIAL IV SCH ×5 (00:26→23:32)
[2021-02-28 05:15] LABS: HGB 14.9 gm/dL (13.0-17.5); MCH 30.4 pg (25.0-35.0); MCHC 33.1 g/dL (31.0-37.0); MCV 91.9 fL (80.0-100.0); Mean Platelet Volume 7.9; Platelet Count 173 k/uL (150-450); WBC 6.1 k/uL (3.8-10.6)
[2021-02-28 05:37] LABS: African American GFR (CKD) >90 (>60 ml/min/1.73 sqM); Anion Gap 6 mmol/L; Blood Urea Nitrogen 19 mg/dL (9-20); Carbon Dioxide 33 mmol/L (22-30); Chloride 91 mmol/L (98-107); Glucose 207 mg/dL (74-99); Non-African American GFR(CKD) >90 (>60 ml/min/1.73 sqM); Potassium 4.2 mmol/L (3.5-5.1); Sodium 130 mmol/L (137-145)
[2021-02-28] MEDS: carvediloL 12.5 MG TAB PO SCH ×2 (06:14→21:22)
[2021-02-28] MEDS: FERROUS SULFATE 325 MG TAB PO SCH (06:14)
[2021-02-28] MEDS: CHOLECALCIFEROL 25 MCG (1000 IU) TABLET PO SCH (06:14)
[2021-02-28] MEDS: LEVOTHYROXINE 75 MCG TAB PO SCH (06:14)
[2021-02-28] MEDS: IPRATROPIUM-ALBUTEROL 3 ML NEB INHALATION SCH ×4 (09:27→19:42)
[2021-02-28] MEDS: SYMBICORT 160-4.5 MCG INHALER INHALATION SCH ×2 (09:28→19:42)
[2021-02-28] MEDS: lisinopriL 5 MG TAB PO SCH (09:30)
[2021-02-28] MEDS: ACETAMINOPHEN TAB 500 MG TAB PO SCH (09:32)
[2021-02-28] MEDS: POTASSIUM CHLORIDE ER 10 MEQ TAB.ER.PRT PO SCH ×2 (09:34→16:48)
[2021-02-28] MEDS: amLODIPine 5 MG TAB PO SCH ×2 (09:34→16:48)
[2021-02-28] MEDS: BUMETANIDE 1 MG TAB PO SCH (09:39)
[2021-02-28] MEDS: HEPARIN SODIUM,PORCINE/PF 5,000 UNIT/0.5 ML SYRINGE SQ SCH ×2 (09:39→21:22)
[2021-02-28] MEDS: MECLIZINE 25 MG TAB PO SCH (09:39)
--- NOTE | 2021-02-28 11:01 | P.PN ---
Subjective Progress Note Date: 02/28/21 HISTORY OF PRESENT ILLNESS: 02/24/2021 This is a 85-year-old male with a past medical history significant for coronary artery disease with previous CABG 5, hypertension, congestive heart failure, hyperlipidemia, GERD, and hypothyroidism. Patient does not follow with a car diologist at [facility]. We have been asked to see the patient in consultation for acute coronary syndrome. Patient was transferred from an outside facility to [facility] after he was found to have hypercapnic respiratory failure and was intubated. Patient examined at the bedside in the intensive care unit. He remains intubated and sedated. There is no family present to provide additional information. Patients vital signs are stable and he is not requiring vasopressor support. He is on IV heparin. EKG at outside facility reveals sinus mechanism with left bundle branch block. Repeat EKG reveals sinus mechanism with diffuse T-wave inversions Chest xray moderate left effusion with adjacent atelectasis and/or airspace disease Laboratory data: WBC 7.2. Hemoglobin 16.2. Platelet count 170. Sodium 132. Potassium 3.1. BUN 19. Creatinine 0.62. ProBNP 1210. TSH 1.200. Troponin 0.052. 0.051. 0.043. Current home cardiac medications include simvastatin 20 mg daily, aspirin 81 mg daily, amlodipine 5 mg daily, Bumex 1 mg twice a day, and carvedilol 0.5 mg twi ce a day 02/28/2021 Patient examined this morning at the bedside in the ICU. Patient is awake and al ert. Denies chest pain or pressure. Denies SOB. Denies palpitations. Telemetry reveals sinus mechanism with bundle branch block. Echocardiogram completed reveals ejection fraction 40-45%, mild aortic regurgitation, mild aortic stenosis, mild mitral regurgitation, and mild tricuspid regurgitation. Patient remains on IV steroids. PHYSICAL EXAM: VITAL SIGNS: Reviewed. GENERAL: Well-developed in no acute distress. NECK: Supple. No JVD or thyromegaly LUNGS: Respirations even and unlabored. Lungs diminished with expiratory wheezing noted. HEART: Regular rate and rhythm. S1 and S2 heard. Systolic murmur noted. EXTREMITIES: Normal range of motion. No clubbing or cyanosis. Peripheral pulses intact. No lower extremity edema ASSESSMENT: Acute hypercapnic respiratory failure, requiring mechanical ventilation Acute COPD exacerbation Coronary artery disease with previous CABG 5, exact details unknown Acute on chronic systolic congestive heart failure Abnormal troponins, flat, not suggestive of acute coronary syndrome Left pleural effusion Hypertension Hyperlipidemia GERD Hypothyroidism PLAN: Continue current cardiac medications Patient is stable from a cardiac standpoint We will follow on an as needed basis. Please call with questions or concerns. Nurse practitioner note has been reviewed by physician. Signing provider agrees with the documented findings, assessment, and plan of care. Objective - Vital Signs Vital signs: Vital Signs Temp 98.4 F 02/28/21 04:00 Pulse 92 02/28/21 09:39 Resp 16 02/28/21 04:00 BP 132/74 02/28/21 04:00 Pulse Ox 92 L 02/28/21 04:00 Intake & Output 02/27/21 02/28/21 02/28/21 18:59 06:59 18:59 Intake Total 500 Output Total 1700 1850 Balance -1200 -1850 Weight 121.9 kg Intake: Oral 500 Output: Urine 1700 1850 Other: Voiding Method Bedside Commode Urinal Urinal # Voids 2 1 ABP, PAP, CO, CI - Last Documented Arterial Blood Pressure 101/37 - Labs CBC & Chem 7: 02/28/21 04:38 02/28/21 04:38 Labs: Abnormal Lab Results - Last 24 Hours (Table) 02/28/21 Range/Units 04:38 Sodium 130 L (137-145) mmol/L Chloride 91 L (98-107) mmol/L Carbon Dioxide 33 H (22-30) mmol/L Creatinine 0.54 L (0.66-1.25) mg/dL Glucose 207 H (74-99) mg/dL
--- NOTE | 2021-02-28 11:28 | P.PN ---
Subjective Progress Note Date: 02/28/21 0 02/28/2021, the patient's condition is stable. As mentioned, he is post intubation mechanical ventilation patient was ultimately extubated on 02/25/2021. He is currently on 2-1/2 L per minute nasal cannula. No chest x- ray was done from today. On yesterday's evaluation, noted that the patient was spastic and wheezy and based on that I give him IV Solu-Medrol. He is also on oral Bumex 1 mg on a daily basis. He remains in a negative fluid balance. Not fluid balance is negative compared to yesterday. On bronchodilators. He is on steroids. Physical therapy is working with the patient and he will possibly be moved to a chair. He is still on DuoNeb nebulized treatments around the clock. No significant cough or sputum production. No chest pain. Echocardiac Efe showed a preserved LV function with some mild impairment with an ejection fraction of 40-45% and he had a combination of systolic and diastolic heart failure. His sodium level is improved compared to yesterday. He is using incentive spirometer. Is having episodes of cough. No other significant events otherwise for now. Blood work from today shows a sodium level of 130. Potassium level is at 4.2. BUN is at 19 with a creatinine of 0.5. White cell count is currently at 6.1 with hemoglobin of 14.9. Objective - Vital Signs Vital signs: Vital Signs Temp 98.4 F 02/28/21 04:00 Pulse 92 02/28/21 09:39 Resp 16 02/28/21 04:00 BP 132/74 02/28/21 04:00 Pulse Ox 92 L 02/28/21 04:00 Intake & Output 02/27/21 02/28/21 02/28/21 18:59 06:59 18:59 Intake Total 500 Output Total 1700 1850 Balance -1200 -1850 Weight 121.9 kg Intake: Oral 500 Output: Urine 1700 1850 Other: Voiding Method Bedside Commode Urinal Urinal # Voids 2 1 ABP, PAP, CO, CI - Last Documented Arterial Blood Pressure 101/37 - Exam No acute distress, currently on 3 L nasal cannula, with excellent saturations. HEENT examination is grossly unremarkable. Neck supple. Full range of motion. No adenopathy thyromegaly or neck vein distention. Cardiovascular examination reveals regular rhythm rate. S1-S2 normal. No S3 or S4. No discernible murmur noted. Heart sounds are very distant. Lungs reveal bilateral scattered rhonchi and bibasilar crackles. Breath sounds are equal bilaterally. No wheezes. Abdomen soft bowel sounds are heard. No masses or tenderness. Extremities are intact. No cyanosis or clubbing. Mild edema is noted. Skin is without rash or lesion. Neurologic examination is brief but nonfocal. - Labs CBC & Chem 7: 02/28/21 04:38 02/28/21 04:38 Labs: Abnormal Lab Results - Last 24 Hours (Table) 02/28/21 Range/Units 04:38 Sodium 130 L (137-145) mmol/L Chloride 91 L (98-107) mmol/L Carbon Dioxide 33 H (22-30) mmol/L Creatinine 0.54 L (0.66-1.25) mg/dL Glucose 207 H (74-99) mg/dL Assessment and Plan Plan: 1 Acute hypoxemic respiratory failure, likely multifactorial, in part related to underlying COPD exacerbation and also acute congestive heart failure, status post intubation and mechanical ventilation on February 23. Clinically improving. The patient has a combination of CHF and COPD..On bronchodilators and steroids. He is also on oral diuretics and a negative fluid balance. 2 Status post successful extubation on 02/25/2021. 3 History of CAD with previous 5 vessel bypass grafting. 4 Acute on chronic congestive heart failure. Has a component of systolic and diastolic heart failure. Ejection fraction is around 40-45% and the patient also had severe concentric left ventricular hypertrophy. Please refer to the echo cardiogram for further details. 5 History of hypertension. 6 History of hyperlipidemia. 7 History of gastroesophageal reflux disease. 8 History of hypothyroidism. 9 History of anemia. 10 with a bundle-branch block pattern, awaiting a full EKG 11 hypokalemia secondary to diuresis, replaced 12 hyponatremia secondary to diuresis, replaced Plan Continue DuoNeb nebulized treatments around the clock Continue bronchodilators and IV Solu-Medrol. Continue oral Bumex and the patient seemed to be in a negative fluid balance Monitor sodium levels Continue lisinopril and Norvasc for blood pressure control, the patient has an adequate blood pressure control. Continue Synthroid Provide the patient incentive spirometer Echocardiogram was noted Patient was extubated on 02/25/2021 We'll continue to follow Encourage working with physical therapy and we'll try to get this patient up on a chair today. \ Time with Patient: Greater than 30
--- NOTE | 2021-02-28 14:59 | P.PN ---
Subjective Patient is feeling fairly well today. He denies any shortness of breath. He is questioning when he's gonna be discharged. Objective - Vital Signs Vital signs: Vital Signs Temp 97.8 F 02/28/21 12:00 Pulse 86 02/28/21 12:34 Resp 17 02/28/21 12:00 BP 141/65 02/28/21 12:00 Pulse Ox 93 L 02/28/21 12:00 Intake & Output 02/27/21 02/28/21 02/28/21 18:59 06:59 18:59 Intake Total 500 Output Total 1700 1850 Balance -1200 -1850 Weight 121.9 kg Intake: Oral 500 Output: Urine 1700 1850 Other: Voiding Method Bedside Commode Urinal Urinal # Voids 2 1 ABP, PAP, CO, CI - Last Documented Arterial Blood Pressure 101/37 - Exam General: The patient is awake and alert, in no distress Eye: there is normal conjunctiva bilaterally. Neck: The neck is supple, there is no JVD. Cardiovascular: Normal S1-S2, no S3-S4, no murmurs. Respiratory: Lungs clear to auscultation bilaterally Gastrointestinal: Abdomen is soft, nontender Musculoskeletal: There is no pedal edema. Neurological:. Speech is normal. Skin: Skin is warm and dry - Labs CBC & Chem 7: 02/28/21 04:38 02/28/21 04:38 Labs: Abnormal Lab Results - Last 24 Hours (Table) 02/28/21 Range/Units 04:38 Sodium 130 L (137-145) mmol/L Chloride 91 L (98-107) mmol/L Carbon Dioxide 33 H (22-30) mmol/L Creatinine 0.54 L (0.66-1.25) mg/dL Glucose 207 H (74-99) mg/dL Assessment and Plan Assessment: This is a 85-year-old male with complex past medical history noted below who presented from an outside hospital with worsening shortness of breath and was found to have severe hypoxia and hypercapnia requiring intubation and mechanical ventilation. Patient is admitted to the ICU for further management of his medical problems noted below 1. Acute hypoxic and hypercapnic respiratory failure requiring mechanical ventilation extubated successfully on 02/25 2. Acute systolic CHF exacerbation: Started on IV Lasix. Echocardiogram showed EF of 40-45%. Cardiology following closely. Now transitioned to oral Bumex 3. Troponin elevation, most likely non-thrombotic troponin leak secondary to above. Cardiology consulted. 4. Underlying COPD with mild exacerbation, given IV steroids on presentation. Steroid discontinued secondary to heart failure exacerbation. Continue bronchodilators. 5. Hypokalemia, replaced 6. Chronic medical problems: Coronary artery disease status post CABG, Hypertension, hyperlipidemia, GERD, hypothyroidism Today, I reviewed his medication list and lab work results. Potassium and magnesium replacement protocols ordered. Bumex resumed, borderline sodium level. Continue to monitor closely Patient was started on Solu-Medrol by pulmonary. I don't appreciate any significant wheezing. May transition to oral prednisone Patient may be transferred out of ICU Discharge planning to longterm facility possibly tomorrow .
[2021-02-28] MEDS: ASPIRIN 81 MG PO SCH (21:22)
[2021-02-28] MEDS: ATORVASTATIN 40 MG TAB PO SCH (21:22)
[2021-02-28] MEDS: PANTOPRAZOLE 40 MG TABLET PO SCH (21:22)
[2021-03-01 04:11] LABS: African American GFR (CKD) >90 (>60 ml/min/1.73 sqM); Anion Gap 2 mmol/L; Blood Urea Nitrogen 19 mg/dL (9-20); Calcium 9.2 mg/dL (8.4-10.2); Carbon Dioxide 36 mmol/L (22-30); Chloride 91 mmol/L (98-107); Glucose 275 mg/dL (74-99); Magnesium 2.2 mg/dL (1.6-2.3); Non-African American GFR(CKD) >90 (>60 ml/min/1.73 sqM); Potassium 4.9 mmol/L (3.5-5.1); Sodium 129 mmol/L (137-145)
[2021-03-01] MEDS: FERROUS SULFATE 325 MG TAB PO SCH (06:20)
[2021-03-01] MEDS: LEVOTHYROXINE 75 MCG TAB PO SCH (06:20)
[2021-03-01] MEDS: methylPREDNISolone SOD SUCCI 125 MG/2 ML VIAL IV SCH (06:20)
[2021-03-01] MEDS: carvediloL 12.5 MG TAB PO SCH ×2 (06:20→21:41)
[2021-03-01] MEDS: CHOLECALCIFEROL 25 MCG (1000 IU) TABLET PO SCH (06:20)
--- NOTE | 2021-03-01 07:43 | XR ---
EXAMINATION TYPE: XR chest 1V portable DATE OF EXAM: 03/01/2021 COMPARISON: Chest x-ray 02/27/2021 HISTORY: Congestive heart failure TECHNIQUE: Single frontal view of the chest is obtained. FINDINGS: There is some improvement in the interstitium as compared to prior exam. Cardiac mediastin al silhouette shows a similar appearance. No evident pneumothorax, difficult to exclude small effusio n. Aorta is dense and thought likely to be tortuous, retrocardiac density could be related to tortuou s aorta or possibly hiatal hernia. Patient is post median sternotomy, bilateral shoulder arthroplasti es. Left subclavian central venous catheter shows a stable appearance. Patchy basilar density is pers istent. IMPRESSION: Suspect some improvement in the interstitium, there is some basilar subsegmental atelect atic change. Additional findings above.
[2021-03-01] MEDS: SYMBICORT 160-4.5 MCG INHALER INHALATION SCH ×2 (08:22→20:40)
[2021-03-01] MEDS: IPRATROPIUM-ALBUTEROL 3 ML NEB INHALATION SCH ×4 (08:22→20:40)
--- NOTE | 2021-03-01 08:42 | P.PN ---
Subjective Progress Note Date: 03/01/21 03/01/2021, the patient is being seen for a follow-up. He remains extubated on oxygen at 2 L per minute nasal cannula. Chest x-ray shows improvement in aeration of the lung bases especially on the left. The left hemidiaphragm is seen more clearly. There may be some subpulmonic effusions bilaterally still. Nevertheless, the left retrocardiac space is much more clear compared to earlier chest x-rays. He remains on bronchodilators. He remains on IV Solu-Medrol. He remains on Bumex 1 mg on a daily basis. The fluid balance has been negative in the order of 3 L over the past 24 hours. Echo of the heart showed a systolic and diastolic heart failure with an ejection fraction of 40-45% and there was concentric LVH. Renal function is stable. Creatinine is at 0.58. BUN is at 19. Sodium level is at 129. He is weak. Is working with physical therapy. Less short of breath compared to yesterday. No altered mentation. Tolerating his diet. No other significant events overnight. Objective - Vital Signs Vital signs: Vital Signs Temp 97.6 F 03/01/21 04:00 Pulse 80 03/01/21 08:26 Resp 20 03/01/21 04:00 BP 129/80 03/01/21 04:00 Pulse Ox 97 03/01/21 04:00 Intake & Output 02/28/21 03/01/21 03/01/21 18:59 06:59 18:59 Intake Total 500 540 Output Total 500 750 Balance 0 -210 Weight 121.8 kg Intake: Oral 500 540 Output: Urine 500 750 Other: Voiding Method Urinal Urinal # Voids 1 1 ABP, PAP, CO, CI - Last Documented Arterial Blood Pressure 101/37 - Exam No acute distress, currently on 2 L nasal cannula, with excellent saturations. HEENT examination is grossly unremarkable. Neck supple. Full range of motion. No adenopathy thyromegaly or neck vein distention. Cardiovascular examination reveals regular rhythm rate. S1-S2 normal. No S3 or S4. No discernible murmur noted. Heart sounds are very distant. Lungs reveal bilateral scattered rhonchi and bibasilar crackles. Breath sounds are equal bilaterally. No wheezes. Abdomen soft bowel sounds are heard. No masses or tenderness. Extremities are intact. No cyanosis or clubbing. Mild edema is noted. Skin is without rash or lesion. Neurologic examination is brief but nonfocal. - Labs CBC & Chem 7: 02/28/21 04:38 03/01/21 03:33 Labs: Abnormal Lab Results - Last 24 Hours (Table) 03/01/21 Range/Units 03:33 Sodium 129 L (137-145) mmol/L Chloride 91 L (98-107) mmol/L Carbon Dioxide 36 H (22-30) mmol/L Creatinine 0.58 L (0.66-1.25) mg/dL Glucose 275 H (74-99) mg/dL Assessment and Plan Plan: 1 Acute hypoxemic respiratory failure, likely multifactorial, in part related to underlying COPD exacerbation and also acute congestive heart failure, status post intubation and mechanical ventilation on February 23. Clinically improving. The patient has a combination of CHF and COPD..On bronchodilators and steroids. He is also on oral diuretics and a negative fluid balance. Clinically the patient is improving. Chest x-ray shows further improvement in the left lung base. The patient is currently on room air oxygen maintaining her pulse ox above 90% 2 Status post successful extubation on 02/25/2021. 3 History of CAD with previous 5 vessel bypass grafting. 4 Acute on chronic congestive heart failure. Has a component of systolic and diastolic heart failure. Ejection fraction is around 40-45% and the patient also had severe concentric left ventricular hypertrophy. Please refer to the echo cardiogram for further details. 5 History of hypertension. 6 History of hyperlipidemia. 7 History of gastroesophageal reflux disease. 8 History of hypothyroidism. 9 History of anemia. 10 with a bundle-branch block pattern, awaiting a full EKG 11 hypokalemia secondary to diuresis, replaced 12 hyponatremia secondary to diuresis, replaced Plan Continue DuoNeb nebulized treatments around the clock Continue bronchodilators and stopped IV Solu-Medrol and put the patient on a prednisone burst taper Continue oral Bumex and the patient seemed to be in a negative fluid balance Monitor sodium levels Continue lisinopril and Norvasc for blood pressure control, the patient has an adequate blood pressure control. Continue Synthroid Provide the patient incentive spirometer Echocardiogram was noted Patient was extubated on 02/25/2021 We'll continue to follow Aggressive physical therapy Case management for possible ECF referral for further rehabilitation transferred out of the intensive care unit
[2021-03-01] MEDS: ACETAMINOPHEN TAB 500 MG TAB PO SCH (09:43)
[2021-03-01] MEDS: HEPARIN SODIUM,PORCINE/PF 5,000 UNIT/0.5 ML SYRINGE SQ SCH ×2 (09:43→21:42)
[2021-03-01] MEDS: amLODIPine 5 MG TAB PO SCH ×2 (09:44→14:36)
[2021-03-01] MEDS: predniSONE 20 MG TAB PO SCH (09:44)
[2021-03-01] MEDS: lisinopriL 5 MG TAB PO SCH (09:44)
[2021-03-01] MEDS: POTASSIUM CHLORIDE ER 10 MEQ TAB.ER.PRT PO SCH ×2 (09:44→14:36)
[2021-03-01] MEDS: MECLIZINE 25 MG TAB PO SCH (09:45)
[2021-03-01] MEDS: BUMETANIDE 1 MG TAB PO SCH (09:45)
--- NOTE | 2021-03-01 10:20 | P.PN ---
Subjective Progress Note Date: 03/01/21 No new complaints today, resting comfortably, breathing improved. Transfer to medical floor. [facility]. Objective - Vital Signs Vital signs: Vital Signs Temp 97.6 F 03/01/21 04:00 Pulse 84 03/01/21 08:37 Resp 20 03/01/21 04:00 BP 129/80 03/01/21 04:00 Pulse Ox 97 03/01/21 04:00 Intake & Output 02/28/21 03/01/21 03/01/21 18:59 06:59 18:59 Intake Total 500 540 Output Total 500 750 Balance 0 -210 Weight 121.8 kg Intake: Oral 500 540 Output: Urine 500 750 Other: Voiding Method Urinal Urinal # Voids 1 1 ABP, PAP, CO, CI - Last Documented Arterial Blood Pressure 101/37 - Exam Gen: awake, alert HEENT: normocephalic, atraumatic, good hearing acuity, moist mucous membranes Resp: good air exchange, breathing comfortably with no accessory muscle use CVS: good distal perfusion x 4, GI: soft, NTTP, ND : no SPT, no CVAT, benitez catheter not present MSK: no pitting edema, no clubbing Neuro: non-focal, moving all extremities Psych: cooperative, euthymic mood - Labs CBC & Chem 7: 02/28/21 04:38 03/01/21 03:33 Labs: Abnormal Lab Results - Last 24 Hours (Table) 03/01/21 Range/Units 03:33 Sodium 129 L (137-145) mmol/L Chloride 91 L (98-107) mmol/L Carbon Dioxide 36 H (22-30) mmol/L Creatinine 0.58 L (0.66-1.25) mg/dL Glucose 275 H (74-99) mg/dL Assessment and Plan Assessment: This is a 85-year-old male with complex past medical history noted below who presented from an outside hospital with worsening shortness of breath and was found to have severe hypoxia and hypercapnia requiring intubation and mechanical ventilation. Patient is admitted to the ICU for further management of his medical problems noted below 1. Acute hypoxic and hypercapnic respiratory failure requiring mechanical ventilation extubated successfully on 02/25 2. Acute systolic CHF exacerbation: Started on IV Lasix. Echocardiogram showed EF of 40-45%. Cardiology following closely. Now transitioned to oral Bumex 3. Troponin elevation, most likely non-thrombotic troponin leak secondary to above. Cardiology consulted. 4. Underlying COPD with mild exacerbation, given IV steroids on presentation. Steroid transitioned to prednisone 40mg PO daily. Continue bronchodilators. 5. Hypokalemia, replaced 6. Chronic medical problems: Coronary artery disease status post CABG, Hype rtension, hyperlipidemia, GERD, hypothyroidism Today, I reviewed his medication list and lab work results. Potassium and magnesium replacement protocols ordered. Bumex resumed, borderline sodium level. Continue to monitor closely Patient was started on Solu-Medrol by pulmonary. I don't appreciate any significant wheezing. May transition to oral prednisone Patient may be transferred out of ICU [facility]
[2021-03-01 11:43] LABS: Glucose,Whole Blood 270 mg/dL (75-99)
[2021-03-01 13:46] VITALS: BMI 36.3
[2021-03-01] MEDS: FUROSEMIDE 10 MG/ML 2 ML VIAL IV SCH (17:59)
[2021-03-01] MEDS: PANTOPRAZOLE 40 MG TABLET PO SCH (21:41)
[2021-03-01] MEDS: ASPIRIN 81 MG PO SCH (21:42)
[2021-03-01] MEDS: ATORVASTATIN 40 MG TAB PO SCH (21:42)
[2021-03-02] MEDS: FERROUS SULFATE 325 MG TAB PO SCH (06:28)
[2021-03-02] MEDS: LEVOTHYROXINE 75 MCG TAB PO SCH (06:28)
[2021-03-02] MEDS: CHOLECALCIFEROL 25 MCG (1000 IU) TABLET PO SCH (06:28)
[2021-03-02] MEDS: carvediloL 12.5 MG TAB PO SCH ×2 (06:29→20:50)
[2021-03-02] MEDS: SYMBICORT 160-4.5 MCG INHALER INHALATION SCH ×2 (07:11→20:24)
[2021-03-02] MEDS: IPRATROPIUM-ALBUTEROL 3 ML NEB INHALATION SCH ×4 (07:12→20:24)
[2021-03-02 08:51] LABS: ALT 31 U/L (4-49); AST 55 U/L (17-59); African American GFR (CKD) >90 (>60 ml/min/1.73 sqM); Albumin 3.2 g/dL (3.5-5.0); Alkaline Phosphatase 58 U/L (38-126); Anion Gap 5 mmol/L; Blood Urea Nitrogen 23 mg/dL (9-20); Calcium 9.2 mg/dL (8.4-10.2); Carbon Dioxide 32 mmol/L (22-30); Chloride 91 mmol/L (98-107); Glucose 142 mg/dL (74-99); Magnesium 2.1 mg/dL (1.6-2.3); Non-African American GFR(CKD) >90 (>60 ml/min/1.73 sqM); Sodium 128 mmol/L (137-145); Total Bilirubin 0.8 mg/dL (0.2-1.3)
[2021-03-02 09:11] LABS: Potassium 5.4 mmol/L (3.5-5.1)
[2021-03-02] MEDS: ACETAMINOPHEN TAB 500 MG TAB PO SCH (10:12)
[2021-03-02] MEDS: POTASSIUM CHLORIDE ER 10 MEQ TAB.ER.PRT PO SCH ×2 (10:12→15:45)
[2021-03-02] MEDS: BUMETANIDE 1 MG TAB PO SCH (10:12)
[2021-03-02] MEDS: amLODIPine 5 MG TAB PO SCH ×2 (10:12→15:45)
[2021-03-02] MEDS: lisinopriL 5 MG TAB PO SCH (10:12)
[2021-03-02] MEDS: MECLIZINE 25 MG TAB PO SCH (10:12)
[2021-03-02] MEDS: HEPARIN SODIUM,PORCINE/PF 5,000 UNIT/0.5 ML SYRINGE SQ SCH ×2 (10:12→20:51)
[2021-03-02] MEDS: predniSONE 20 MG TAB PO SCH (10:13)
--- NOTE | 2021-03-02 12:14 | P.DS ---
Providers Date of admission: 02/23/21 17:49 Attending physician: Irving Chen MD Consults: 02/23/21 17:49 Consult Physician Stat Consulting Provider: Sean Cho Reason/Comments: Respiratory failure, intubated Do you want consulting provider notified?: Already Contacted Primary care physician: Jerry López [facility] Course: Acute Hypoxemic and Hypercarbic Respiratory Failure superimposed on Chronic Hypercarbic Respiratory Failure COPD exacerbation Acute on Chronic Systolic Heart Failure Exacerbation Chronic medical problems: Coronary artery disease status post CABG, Hyp ertension, hyperlipidemia, GERD, hypothyroidism This is a 85-year-old male with complex past medical history noted below who presented from an outside hospital with worsening shortness of breath and was found to have severe hypoxia and hypercapnia requiring intubation and mechanical ventilation. Patient was admitted to the ICU for further management of his medical problems. Patient was treated with nebulizers, steroids, and abx. He was extubated successfully on 02/25. Also had volume overload from CHF exacerbation, started on IV lasix with Echo demonstrating reduced EF. Pt succ essfully transitioned to oral bumex following extubation. On d/c was prescribed prednisone for an additional 3 days for total of 10 days. I spent 40 minutes coordinating this complex discharge. Assessment: Gen: awake, alert HEENT: normocephalic, atraumatic, good hearing acuity, moist mucous membranes Resp: good air exchange, breathing comfortably with no accessory muscle use CVS: good distal perfusion x 4, GI: soft, NTTP, ND : no SPT, no CVAT, benitez catheter not present MSK: no pitting edema, no clubbing Neuro: non-focal, moving all extremities Psych: cooperative, euthymic mood Patient Condition at Discharge: Good Plan - Discharge Summary Discharge Rx Participant: Yes New Discharge Prescriptions: New predniSONE [Deltasone] 40 mg PO DAILY #6 tab Ipratropium-Albuterol Nebulize [Duoneb 0.5 mg-3 mg/3 ml Soln] 3 ml INHALATION RT-QID ml Budesonide-Formot 160-4.5 Mcg [Symbicort 160-4.5 Mcg Inhaler] 2 puff INHALATION RT-BID gm Bumetanide [BUMEX] 1 mg PO DAILY tab lisinopriL [Zestril] 5 mg PO DAILY tab Continue Ferrous Sulfate [Feosol] 325 mg PO DAILY@0700 Meclizine HCl 25 mg PO DAILY@0900 Acetaminophen [Tylenol] 1,000 mg PO DAILY@0900 amLODIPine [Norvasc] 5 mg PO DAILY@1000,1500 Potassium Chloride ER [K-Dur 10] 10 meq PO BID@1000,1500 Celecoxib [CeleBREX] 200 mg PO DAILY@0700 Cholecalciferol [Vitamin D3 (25 Mcg = 1000 Iu)] 25 mcg PO DAILY@0700 Simvastatin [Zocor] 20 mg PO HS@2200 Aspirin EC [Ecotrin Low Dose] 81 mg PO HS@2200 Omeprazole 20 mg PO HS@2200 Levothyroxine Sodium [Synthroid] 75 mcg PO DAILY@0700 Carvedilol [Coreg] 12.5 mg PO BID@0700,2200 Discontinued Bumetanide [Bumex] 1 mg PO BID@1000,1500 Discharge Medication List Acetaminophen [Tylenol] 1,000 mg PO DAILY@0902/23/21 [History] Aspirin EC [Ecotrin Low Dose] 81 mg PO HS@219902/23/21 [History] Carvedilol [Coreg] 12.5 mg PO BID@0700,219902/23/21 [History] Celecoxib [CeleBREX] 200 mg PO DAILY@69902/23/21 [History] Cholecalciferol [Vitamin D3 (25 Mcg = 1000 Iu)] 25 mcg PO DAILY@69902/23/21 [History] Ferrous Sulfate [Feosol] 325 mg PO DAILY@69902/23/21 [History] Levothyroxine Sodium [Synthroid] 75 mcg PO DAILY@69902/23/21 [History] Meclizine HCl 25 mg PO DAILY@89902/23/21 [History] Omeprazole 20 mg PO HS@219902/23/21 [History] Potassium Chloride ER [K-Dur 10] 10 meq PO BID@1000,1500 02/23/21 [History] Simvastatin [Zocor] 20 mg PO HS@219902/23/21 [History] amLODIPine [Norvasc] 5 mg PO DAILY@1000,1500 02/23/21 [History] Budesonide-Formot 160-4.5 Mcg [Symbicort 160-4.5 Mcg Inhaler] 2 puff INHALATION RT-BID gm 03/02/21 [Rx] Bumetanide [BUMEX] 1 mg PO DAILY tab 03/02/21 [Rx] Ipratropium-Albuterol Nebulize [Duoneb 0.5 mg-3 mg/3 ml Soln] 3 ml INHALATION RT-QID ml 03/02/21 [Rx] lisinopriL [Zestril] 5 mg PO DAILY tab 03/02/21 [Rx] predniSONE [Deltasone] 40 mg PO DAILY #6 tab 03/02/21 [Rx] Follow up Appointment(s)/Referral(s): Jerry López MD [Primary Care Provider] - 1-2 days Discharge Disposition: TRANSFER TO SNF/ECF
--- NOTE | 2021-03-02 12:17 | P.PN ---
Subjective Progress Note Date: 03/02/21 03/02/2021, the patient was discharged out of the intensive care unit and currently sitting up on a chair on a medical floor on 2 L of oxygen by nasal cannula. He is weak and he will need rehabilitation. He remains on Bumex 1 mg daily and he is also on bronchodilators and steroids. Fluid balance is negative found at 62 mL over the past 24 hours. Echocardiac Efe showed a combination of systolic and diastolic heart failure. His last chest x-ray from yesterday was showing some mild pulmonary vascular congestion yet the interstitium was essentially improving with the above-mentioned treatments. For now, his blood work is showing a sodium level of 128, slightly lower compared to yesterday. Renal function stable with a creatinine of 0.5 and a BUN of 23. Liver function tests are normal. There is CBC shows a white cell count of 6.1 with hemoglobin of 14.9. The patient is on Symbicort as maintenance, oral Bumex, and he is also completing a prednisone burst taper currently on 40 mg. Objective - Vital Signs Vital signs: Vital Signs Temp 97.8 F 03/02/21 08:00 Pulse 67 03/02/21 11:59 Resp 18 03/02/21 11:59 BP 119/65 03/02/21 11:59 Pulse Ox 97 03/02/21 11:59 Intake & Output 03/01/21 03/02/21 03/02/21 18:59 06:59 18:59 Intake Total 490 660 Output Total 851 1 Balance -361 -1 660 Weight 121.8 kg 121.7 kg Intake: Oral 490 660 Output: Urine 850 1 Stool 1 Other: Voiding Method Urinal Urinal Urinal # Voids 0 1 # Bowel Movements 1 ABP, PAP, CO, CI - Last Documented Arterial Blood Pressure 101/37 - Exam No acute distress, currently on 2 L nasal cannula, with excellent saturations. HEENT examination is grossly unremarkable. Neck supple. Full range of motion. No adenopathy thyromegaly or neck vein distention. Cardiovascular examination reveals regular rhythm rate. S1-S2 normal. No S3 or S4. No discernible murmur noted. Heart sounds are very distant. Lungs reveal bilateral scattered rhonchi and bibasilar crackles. Breath sounds are equal bilaterally. No wheezes. Abdomen soft bowel sounds are heard. No masses or tenderness. Extremities are intact. No cyanosis or clubbing. Mild edema is noted. Skin is without rash or lesion. Neurologic examination is brief but nonfocal. - Labs CBC & Chem 7: 02/28/21 04:38 03/02/21 08:02 Labs: Abnormal Lab Results - Last 24 Hours (Table) 03/02/21 Range/Units 08:02 Sodium 128 L (137-145) mmol/L Potassium 5.4 H (3.5-5.1) mmol/L Chloride 91 L (98-107) mmol/L Carbon Dioxide 32 H (22-30) mmol/L BUN 23 H (9-20) mg/dL Creatinine 0.59 L (0.66-1.25) mg/dL Glucose 142 H (74-99) mg/dL Total Protein 6.0 L (6.3-8.2) g/dL Albumin 3.2 L (3.5-5.0) g/dL Assessment and Plan Plan: 1 Acute hypoxemic respiratory failure, likely multifactorial, in part related to underlying COPD exacerbation and also acute congestive heart failure, status post intubation and mechanical ventilation on February 23. Clinically improving. The patient has a combination of CHF and COPD..On bronchodilators and steroids. He is also on oral diuretics and a negative fluid balance. Clinically the patient is improving. Chest x-ray shows further improvement in the left lung base. The patient continues to improve clinically. He is on a prednisone burst taper and DuoNeb nebulized treatments around the clock. He has been adequately diuresed. 2 Status post successful extubation on 02/25/2021. 3 History of CAD with previous 5 vessel bypass grafting. 4 Acute on chronic congestive heart failure. Has a component of systolic and diastolic heart failure. Ejection fraction is around 40-45% and the patient also had severe concentric left ventricular hypertrophy. Please refer to the echo cardiogram for further details. 5 History of hypertension. 6 History of hyperlipidemia. 7 History of gastroesophageal reflux disease. 8 History of hypothyroidism. 9 History of anemia. 10 with a bundle-branch block pattern, awaiting a full EKG 11 hypokalemia secondary to diuresis, replaced 12 hyponatremia secondary to diuresis, , currently on Bumex Plan Continue DuoNeb nebulized treatments around the clock Continue prednisone burst taper Continue oral Bumex and the patient seemed to be in a negative fluid balance Monitor sodium levels Continue lisinopril and Norvasc for blood pressure control, the patient has an adequate blood pressure control. Continue Synthroid Provide the patient incentive spirometer Echocardiogram was noted Patient was extubated on 02/25/2021 Aggressive physical therapy Case management for possible ECF referral for further rehabilitation transferred out of the intensive care unit, currently on a medical floor. The sodium level needs to be monitored. Diuretics may be stopped if the patient's sodium drops any further.
[2021-03-02] MEDS: ATORVASTATIN 40 MG TAB PO SCH (20:50)
[2021-03-02] MEDS: ASPIRIN 81 MG PO SCH (20:50)
[2021-03-02] MEDS: PANTOPRAZOLE 40 MG TABLET PO SCH (20:51)
[2021-03-03 04:27] VITALS: RESP 18
[2021-03-03] MEDS: CHOLECALCIFEROL 25 MCG (1000 IU) TABLET PO SCH (06:33)
[2021-03-03] MEDS: LEVOTHYROXINE 75 MCG TAB PO SCH (06:33)
[2021-03-03] MEDS: FERROUS SULFATE 325 MG TAB PO SCH (06:34)
[2021-03-03] MEDS: carvediloL 12.5 MG TAB PO SCH (06:34)
[2021-03-03] MEDS: SYMBICORT 160-4.5 MCG INHALER INHALATION SCH (08:07)
[2021-03-03] MEDS: IPRATROPIUM-ALBUTEROL 3 ML NEB INHALATION SCH (08:07)
[2021-03-03 08:11] VITALS: BP 143/67; TEMP 97.5
[2021-03-03 08:29] VITALS: PULSE 80
[2021-03-03] MEDS: POTASSIUM CHLORIDE ER 10 MEQ TAB.ER.PRT PO SCH (08:31)
[2021-03-03] MEDS: MECLIZINE 25 MG TAB PO SCH (08:46)
[2021-03-03] MEDS: ACETAMINOPHEN TAB 500 MG TAB PO SCH (08:46)
[2021-03-03] MEDS: lisinopriL 5 MG TAB PO SCH (08:47)
[2021-03-03] MEDS: HEPARIN SODIUM,PORCINE/PF 5,000 UNIT/0.5 ML SYRINGE SQ SCH (08:47)
[2021-03-03] MEDS: BUMETANIDE 1 MG TAB PO SCH (08:47)
[2021-03-03] MEDS: predniSONE 20 MG TAB PO SCH (08:47)
[2021-03-03] MEDS: amLODIPine 5 MG TAB PO SCH (08:47)
== END 2021-03-03 10:32 | DRG 208 ==
LOC: SUPCPDRO 17:19 → EC 17:19 → 2SICU 17:49 → 3SCARD 03-01 15:17
PROVIDERS: ADMIT Internal Medicine; ATTEND Internal Medicine
PROC: 5A1945Z Respiratory Ventilation, 24-96 Consecutive Hours (ICD-10-PCS; principal; 2021-02-23)
PROC: 02HV33Z Insertion of Infusion Device into Superior Vena Cava, Percutaneous Approach (ICD-10-PCS; 2021-02-23)
PROC: 03HY32Z Insertion of Monitoring Device into Upper Artery, Percutaneous Approach (ICD-10-PCS; 2021-02-23)
DX: J96.21 Acute and chronic respiratory failure with hypoxia (principal); I50.43 Acute on chronic combined systolic (congestive) and diastolic (congestive) heart failure; J44.1 Chronic obstructive pulmonary disease with (acute) exacerbation; E87.1 Hypo-osmolality and hyponatremia; I42.9 Cardiomyopathy, unspecified; I11.0 Hypertensive heart disease with heart failure; J96.22 Acute and chronic respiratory failure with hypercapnia; K21.9 Gastro-esophageal reflux disease without esophagitis; Z20.822 Contact with and (suspected) exposure to COVID-19; E03.9 Hypothyroidism, unspecified; E55.9 Vitamin D deficiency, unspecified; E78.5 Hyperlipidemia, unspecified; E87.6 Hypokalemia; I25.10 Atherosclerotic heart disease of native coronary artery without angina pectoris; Z79.899 Other long term (current) drug therapy; Z95.1 Presence of aortocoronary bypass graft; Z79.82 Long term (current) use of aspirin; Z79.890 Hormone replacement therapy; Z79.1 Long term (current) use of non-steroidal anti-inflammatories (NSAID); D64.9 Anemia, unspecified; E87.8 Other disorders of electrolyte and fluid balance, not elsewhere classified
CPT/HCPCS: 31500; 36415; 36600; 71045; 80048; 80053; 80061; 82805; 83735; 83880; 84145; 84443; 84484; 85025; 85027; 85610; 85730; 87070; 87205; 87635; 93005; 93306; 94002; 94003; 94640; 94760; 96374; 99291

== ENCOUNTER 2021-03-08 11:11 | Inpatient (IN) | payer OTHER, MEDICARE, BC ==
[2021-03-08] MEDS ORDERED: IPRATROPIUM-ALBUTEROL 3 ML NEB INHALATION STA (11:18)
--- NOTE | 2021-03-08 11:22 | ED ---
SOB HPI - General Stated Complaint: Syncope Time Seen by Provider: 03/08/21 11:11 Source: patient, EMS, RN notes reviewed Mode of arrival: EMS - History of Present Illness Initial Comments: 85-year-old male with a history of COPD who is brought in by EMS from senior care after he was complaining of shortness of breath and then had about a 5 minute syncopal episode while sitting on bed. Per reports she was given sternal runs by first responders with no relief by time medics got there he was awake al ert oriented 4. He does complain shortness breath no overt chest pain no fevers chills nausea vomiting sweats. He was noted have a low blood pressure as well as a low heart rate for. Time and per paramedics in route he did drop his lowest 30 bpm. No breathing treatments initiated thus far. MD Complaint: shortness of breath - Related Data Home Medications Medication Instructions Recorded Confirmed Acetaminophen [Tylenol] 1,000 mg PO DAILY 02/23/21 03/08/21 Aspirin EC [Ecotrin Low Dose] 81 mg PO DAILY 02/23/21 03/08/21 Carvedilol [Coreg] 12.5 mg PO BID 02/23/21 03/08/21 Celecoxib [CeleBREX] 200 mg PO DAILY@0600 02/23/21 03/08/21 Cholecalciferol [Vitamin D3 (25 25 mcg PO DAILY@0600 02/23/21 03/08/21 Mcg = 1000 Iu)] Ferrous Sulfate [Feosol] 325 mg PO DAILY@0600 02/23/21 03/08/21 Levothyroxine Sodium [Synthroid] 75 mcg PO DAILY@0600 02/23/21 03/08/21 Meclizine HCl 25 mg PO DAILY 02/23/21 03/08/21 Omeprazole 20 mg PO DAILY 02/23/21 03/08/21 Potassium Chloride ER [K-Dur 10] 10 meq PO BID@0900,1300 02/23/21 03/08/21 amLODIPine [Norvasc] 5 mg PO BID@0900,1700 02/23/21 03/08/21 Atorvastatin [Lipitor] 10 mg PO HS 03/08/21 03/08/21 predniSONE [Deltasone] See Taper PO DAILY 03/08/21 03/08/21 Previous Rx's Medication Instructions Recorded Budesonide-Formot 160-4.5 Mcg 2 puff INHALATION RT-BID gm 03/02/21 [Symbicort 160-4.5 Mcg Inhaler] Bumetanide [BUMEX] 1 mg PO DAILY tab 03/02/21 Ipratropium-Albuterol Nebulize 3 ml INHALATION RT-QID ml 03/02/21 [Duoneb 0.5 mg-3 mg/3 ml Soln] lisinopriL [Zestril] 5 mg PO DAILY tab 03/02/21 Allergies Allergy/AdvReac Type Severity Reaction Status Date / Time Penicillins Allergy Unknown Verified 03/08/21 11:52 Review of Systems ROS Statement: Those systems with pertinent positive or pertinent negative responses have been documented in the HPI. ROS Other: All systems not noted in ROS Statement are negative. Past Medical History Past Medical History: Unable to Obtain, COPD History of Any Multi-Drug Resistant Organisms: None Reported Past Surgical History: Unable to Obtain Additional Past Surgical History / Comment(s): CABG x 5 Past Anesthesia/Blood Transfusion Reactions: No Reported Reaction Smoking Status: Unknown if ever smoked Past Alcohol Use History: Unable to Obtain Past Drug Use History: Unable to Obtain - Past Family History Family Family Medical History: Unable to Obtain General Exam - General Exam Comments Initial Comments: This is a well-developed well-nourished awake alert oriented times 3 male General appearance: alert, anxious Head exam: Present: atraumatic, normocephalic, normal inspection Eye exam: Present: normal appearance, PERRL, EOMI. Absent: scleral icterus, conjunctival injection, periorbital swelling ENT exam: Present: normal exam, mucous membranes moist Neck exam: Present: normal inspection. Absent: tenderness, meningismus, lymphadenopathy Respiratory exam: Present: decreased breath sounds. Absent: respiratory distress, wheezes, rales, rhonchi, stridor Cardiovascular Exam: Present: regular rate, normal rhythm, normal heart sounds. Absent: systolic murmur, diastolic murmur, rubs, gallop, clicks GI/Abdominal exam: Present: soft, normal bowel sounds. Absent: distended, tenderness, guarding, rebound, rigid Extremities exam: Present: full ROM, normal capillary refill, pedal edema, other. Absent: tenderness, joint swelling, calf tenderness Back exam: Present: normal inspection Neurological exam: Present: alert, oriented X3, CN II-XII intact Psychiatric exam: Present: normal affect, normal mood Skin exam: Present: warm, dry, intact, normal color. Absent: rash Course Vital Signs 03/08/21 03/08/21 03/08/21 11:14 11:31 11:41 Temperature 97.6 F Pulse Rate 70 87 Respiratory 24 24 16 Rate Blood Pressure 119/79 O2 Sat by Pulse 95 Oximetry 03/08/21 03/08/21 11:51 13:27 Temperature Pulse Rate 88 63 Respiratory 16 18 Rate Blood Pressure 113/89 O2 Sat by Pulse 98 Oximetry Medical Decision Making - Medical Decision Making I did discuss [employer] the patient and family as well as with Dr. Rondon patient will be admitted for inpatient evaluation and treatment - Lab Data Result diagrams: 03/08/21 11:24 03/08/21 11:24 Lab Results 03/08/21 03/08/21 03/08/21 Range/Units 11:24 11:24 11:24 WBC 11.5 H (3.8-10.6) k/uL RBC 5.10 (4.30-5.90) m/uL Hgb 15.3 (13.0-17.5) gm/dL Hct 48.1 (39.0-53.0) % MCV 94.3 (80.0-100.0) fL MCH 29.9 (25.0-35.0) pg MCHC 31.7 (31.0-37.0) g/dL RDW 13.3 (11.5-15.5) % Plt Count 236 (150-450) k/uL MPV 7.0 Neutrophils % 80 % Lymphocytes % 11 % Monocytes % 7 % Eosinophils % 1 % Basophils % 0 % Neutrophils # 9.2 H (1.3-7.7) k/uL Lymphocytes # 1.2 (1.0-4.8) k/uL Monocytes # 0.8 (0-1.0) k/uL Eosinophils # 0.1 (0-0.7) k/uL Basophils # 0.0 (0-0.2) k/uL PT 9.3 (9.0-12.0) sec INR 0.8 (<1.2) APTT 20.6 L (22.0-30.0) sec Sodium 129 L (137-145) mmol/L Potassium 5.2 H (3.5-5.1) mmol/L Chloride 89 L (98-107) mmol/L Carbon Dioxide 34 H (22-30) mmol/L Anion Gap 6 mmol/L BUN 32 H (9-20) mg/dL Creatinine 0.76 (0.66-1.25) mg/dL Est GFR (CKD-EPI)AfAm >90 (>60 ml/min/1.73 sqM) Est GFR (CKD-EPI)NonAf 82 (>60 ml/min/1.73 sqM) Glucose 238 H (74-99) mg/dL Plasma Lactic Acid [place] (0.7-2.0) mmol/L Calcium 9.3 (8.4-10.2) mg/dL Magnesium 1.9 (1.6-2.3) mg/dL Total Bilirubin 0.8 (0.2-1.3) mg/dL AST 41 (17-59) U/L ALT 35 (4-49) U/L Alkaline Phosphatase 96 (38-126) U/L Troponin I (0.000-0.034) ng/mL NT-Pro-B Natriuret Pep pg/mL Total Protein 6.1 L (6.3-8.2) g/dL Albumin 3.4 L (3.5-5.0) g/dL 03/08/21 03/08/21 03/08/21 Range/Units 11:24 11:24 11:24 WBC (3.8-10.6) k/uL RBC (4.30-5.90) m/uL Hgb (13.0-17.5) gm/dL Hct (39.0-53.0) % MCV (80.0-100.0) fL MCH (25.0-35.0) pg MCHC (31.0-37.0) g/dL RDW (11.5-15.5) % Plt Count (150-450) k/uL MPV Neutrophils % % Lymphocytes % % Monocytes % % Eosinophils % % Basophils % % Neutrophils # (1.3-7.7) k/uL Lymphocytes # (1.0-4.8) k/uL Monocytes # (0-1.0) k/uL Eosinophils # (0-0.7) k/uL Basophils # (0-0.2) k/uL PT (9.0-12.0) sec INR (<1.2) APTT (22.0-30.0) sec Sodium (137-145) mmol/L Potassium (3.5-5.1) mmol/L Chloride (98-107) mmol/L Carbon Dioxide (22-30) mmol/L Anion Gap mmol/L BUN (9-20) mg/dL Creatinine (0.66-1.25) mg/dL Est GFR (CKD-EPI)AfAm (>60 ml/min/1.73 sqM) Est GFR (CKD-EPI)NonAf (>60 ml/min/1.73 sqM) Glucose (74-99) mg/dL Plasma Lactic Acid [place] 1.9 (0.7-2.0) mmol/L Calcium (8.4-10.2) mg/dL Magnesium (1.6-2.3) mg/dL Total Bilirubin (0.2-1.3) mg/dL AST (17-59) U/L ALT (4-49) U/L Alkaline Phosphatase (38-126) U/L Troponin I <0.012 (0.000-0.034) ng/mL NT-Pro-B Natriuret Pep 774 pg/mL Total Protein (6.3-8.2) g/dL Albumin (3.5-5.0) g/dL - EKG Data -: EKG Interpreted by Me EKG Comments: Sinus rhythm with first-degree AV block rate 69. Interval 218 QRS duration 162 QT since QTC 436/467 left exodeviation, left bundle-branch block, occasional PVC - Radiology Data Radiology results: report reviewed ((Reviewed evidence of COPD), image reviewed Critical Care Time Critical Care Time: Yes Total Critical Care Time: 31 Critical Care Time: Critical care time includes initial presentation with history physical x-rays also reevaluation the patient discussed with patient family discussion with admitting doctor discuss in with staff review of old charting admission orders neck mentation the above Disposition Clinical Impression: COPD exacerbation, Episode of syncope, Dehydration Disposition: ADMITTED IP TO THIS [facility] Condition: Fair Referrals: Lexus Crespo MD [Primary Care Provider] - 1-2 days
[2021-03-08 11:41] LABS: Basophils % (A) 0 %; Eosinophils # (A) 0.1 k/uL (0-0.7); Eosinophils % (A) 1 %; HCT 48.1 % (39.0-53.0); HGB 15.3 gm/dL (13.0-17.5); Lymphocytes # (A) 1.2 k/uL (1.0-4.8); Lymphocytes % (A) 11 %; MCH 29.9 pg (25.0-35.0); MCHC 31.7 g/dL (31.0-37.0); MCV 94.3 fL (80.0-100.0); Monocytes # (A) 0.8 k/uL (0-1.0); Monocytes % (A) 7 %; Neutrophils # (A) 9.2 k/uL (1.3-7.7); Neutrophils % (A) 80 %; Platelet Count 236 k/uL (150-450); RDW 13.3 % (11.5-15.5); WBC 11.5 k/uL (3.8-10.6)
[2021-03-08 11:59] LABS: INR 0.8 (<1.2); Partial Thromboplastin Time 20.6 sec (22.0-30.0); Prothrombin Time 9.3 sec (9.0-12.0)
[2021-03-08 12:03] LABS: ALT 35 U/L (4-49); AST 41 U/L (17-59); African American GFR (CKD) >90 (>60 ml/min/1.73 sqM); Albumin 3.4 g/dL (3.5-5.0); Alkaline Phosphatase 96 U/L (38-126); Anion Gap 6 mmol/L; Blood Urea Nitrogen 32 mg/dL (9-20); Calcium 9.3 mg/dL (8.4-10.2); Carbon Dioxide 34 mmol/L (22-30); Chloride 89 mmol/L (98-107); Glucose 238 mg/dL (74-99); Magnesium 1.9 mg/dL (1.6-2.3); Non-African American GFR(CKD) 82 (>60 ml/min/1.73 sqM); Potassium 5.2 mmol/L (3.5-5.1); Sodium 129 mmol/L (137-145); Total Bilirubin 0.8 mg/dL (0.2-1.3); Total Protein 6.1 g/dL (6.3-8.2)
--- NOTE | 2021-03-08 12:36 | XR ---
EXAMINATION TYPE: XR chest 2V DATE OF EXAM: 03/08/2021 COMPARISON: Chest x-ray March 01, 2021 HISTORY: Dyspnea. TECHNIQUE: Frontal and lateral views of the chest are obtained. FINDINGS: Low lung volumes are present. There are chronic parenchyma changes without suspicious new focal air space opacity, pleural effusion, or pneumothorax seen. Cardiomegaly redemonstrated. [place] ing sternal wires redemonstrated. Metallic artifact right lateral shoulder surgery is partially image d. IMPRESSION: Low lung findings and cardiomegaly chronic changes without new acute pulmonary process.
[2021-03-08] MEDS ORDERED: NALOXONE 0.4 MG/ML 1 ML VIAL IV PRN (14:37)
[2021-03-08] MEDS: SODIUM CHLORIDE 0.9% 1,000 ML IV SCH (14:52)
[2021-03-08] MEDS ORDERED: ACETAMINOPHEN TAB 325 MG TAB PO PRN (19:59)
[2021-03-08 20:43] LABS: Glucose,Whole Blood 166 mg/dL (75-99)
[2021-03-08] MEDS: ATORVASTATIN 10 MG TAB PO SCH (21:12)
[2021-03-08] MEDS: carvediloL 12.5 MG TAB PO SCH (21:12)
[2021-03-08] MEDS: IPRATROPIUM-ALBUTEROL 3 ML NEB INHALATION SCH (21:42)
[2021-03-08] MEDS: SYMBICORT 160-4.5 MCG INHALER INHALATION SCH (21:42)
[2021-03-09] MEDS: SODIUM CHLORIDE 0.9% 1,000 ML IV SCH ×2 (04:17→21:06)
[2021-03-09] MEDS: LEVOTHYROXINE 75 MCG TAB PO SCH (05:27)
[2021-03-09 07:07] LABS: Glucose,Whole Blood 100 mg/dL (75-99)
[2021-03-09] MEDS: SYMBICORT 160-4.5 MCG INHALER INHALATION SCH ×2 (07:17→19:47)
[2021-03-09] MEDS: IPRATROPIUM-ALBUTEROL 3 ML NEB INHALATION SCH ×4 (07:18→19:47)
[2021-03-09] MEDS: amLODIPine 5 MG TAB PO SCH ×2 (08:07→17:38)
[2021-03-09] MEDS: ASPIRIN 81 MG PO SCH (08:07)
[2021-03-09] MEDS: FERROUS SULFATE 325 MG TAB PO SCH (08:07)
[2021-03-09] MEDS: PANTOPRAZOLE 40 MG TABLET PO SCH (08:08)
[2021-03-09] MEDS: carvediloL 12.5 MG TAB PO SCH (08:08)
[2021-03-09] MEDS: MECLIZINE 25 MG TAB PO SCH (08:08)
[2021-03-09] MEDS: lisinopriL 5 MG TAB PO SCH (08:08)
[2021-03-09] MEDS: CHOLECALCIFEROL 25 MCG (1000 IU) TABLET PO SCH (08:08)
[2021-03-09] MEDS: ACETAMINOPHEN TAB 500 MG TAB PO SCH (10:53)
[2021-03-09] MEDS: FUROSEMIDE 10 MG/ML 2 ML VIAL IV SCH ×2 (10:54→21:02)
[2021-03-09 11:55] LABS: Glucose,Whole Blood 119 mg/dL (75-99)
--- NOTE | 2021-03-09 12:13 | CT ---
EXAMINATION TYPE: CT angio chest DATE OF EXAM: 03/09/2021 11:42 AM COMPARISON: Chest x-ray from yesterday and older x-rays. HISTORY: SOB CT DLP: 547.8 mGycm Automated exposure control for dose reduction was used. CONTRAST: CTA scan of the thorax is performed with IV Contrast, patient injected with 100 mL of Isovue 370, pul monary embolism protocol. MIP images are created and reviewed. FINDINGS: Exam suboptimal due to patient's body habitus and underlying scoliosis and exaggerated kyph osis. LUNGS: There is respiratory motion artifact degradation limiting evaluation for subcentimeter nodules . There is elevated left hemidiaphragm. Mild left greater than right bibasilar linear scarring and/or atelectasis. No pleural effusion or pneumothorax. No suspicious focal consolidation or groundglass o pacity. MEDIASTINUM: There is suboptimal bolus with most dense contrast in the SVC, there is no central pulmo nary embolism. There is heterogeneity in the periphery and less than ideal contrast opacification dave ing evaluation for segmental and subsegmental PE suboptimal. No thoracic aortic aneurysm or dissectio n. Post CABG changes with mediastinal clips and sternal wires is present. Moderate calcified plaque a t the level of the aortic valve. Prominent left pericardial fat pad. Mild cardiomegaly. No pericardia l effusion. Moderate-sized hiatal hernia. OTHER: Metallic hardware from bilateral shoulder surgery is partially imaged. Underlying dextroconve x scoliosis centered at thoracolumbar junction. Exaggerated kyphosis proximal to mid thoracic level. IMPRESSION: 1. Suboptimal study without central pulmonary embolism. Cannot exclude smaller segmental and subsegme ntal PE on this study. 2. Mild bibasilar linear scarring and/or atelectasis. No suspicious acute infiltrate.
[2021-03-09] MEDS: methylPREDNISolone SOD SUCCI 125 MG/2 ML VIAL IV SCH ×3 (13:36→23:52)
--- NOTE | 2021-03-09 15:31 | P.HPIM ---
History of Present Illness H&P Date: 03/09/21 HISTORY OF PRESENT ILLNESS This is an 85-year-old male patient that follows with [place], [place], with past medical history of COPD, coronary artery disease with 5 vessel bypass grafting, chronic systolic heart failure, hypertension, hyperlipidemia, gastroesophageal reflux disease, hypothyroidism, patient was recently hospitalized for acute hypoxic respiratory failure secondary to COPD exacerbation and acute systolic heart failure requiring intubation mechanical ventilation. Patient was stabilized and discharged to [facility] on care of Dr. Crespo.. Patient complains of shortness of breath with minimal activity. He denies having any fever or chills. No nausea or vomiting. He was noted by EMS to have low heart beat in the 30s and low blood pressure. On presentation his heart rate was 70 and blood pressure 119/79, afebrile. WBC 11.5, hemoglobin 15.3, platelet count 236. Sodium 129, potassium 5.2, chloride 89, CO2 34, BUN 32 creatinine 0.76. Blood sugar 238. Liver function tests were normal. Magnesium 1.9. Lactic acid 1.9. Troponin negative. ProBNP 774. EKG was sinus rhythm with first-degree block and left bundle branch block. Patient was started on IV Solu-Medrol IV Lasix and admitted to the [facility] floor. Echocardiogram on last admission was EF 40-45% with moderate global hypokinesia of the LV, moderate aortic valve sclerosis, mild aortic regurgitation, mild aortic stenosis, mild mitral regurgitation, mild tricuspid regurgitation. REVIEW OF SYSTEMS Constitutional: No fever, no chills, no night sweats. No weight change. No weakness, fatigue or lethargy. No daytime sleepiness. EENT: No headache. No blurred vision or double vision, no loss of vision. No loss of Hearing, no ringing in the ears, no dizziness. No nasal drainage or congestion. No epistaxis. No sore throat. Lungs: Reports shortness of breath, cough, no sputum production. No wheezing. Reports dyspnea with minimal exertion Cardiovascular: No chest pain, no lower extremity edema. No palpitations. No paroxysmal nocturnal dyspnea. No orthopnea. No lightheadedness or dizziness. Reports syncopal episodes. Abdominal: No abdominal pain. No nausea, vomiting. No diarrhea. No constipation. No bloody or tarry stools.. No loss of appetite. Genitourinary: No dysuria, increased frequency, urgency. No urinary retention. Musculoskeletal: No myalgias. No muscle weakness, no gait dysfunction, no frequent falls. No back pain. No neck pain. Integumentary: No wounds, no lesions. No rash or pruritus. No unusual bruising. No change in hair or nails. Neurologic: No aphasia. No facial droop. No change in mentation. No head injury. No headache. No paralysis. No paresthesia. Psychiatric: No depression. No anxiety. No mood swings. Endocrine: Noted abnormal blood sugars. SOCIAL HISTORY Patient was a smoker and quit in 1966, rare alcohol use, no illicit drug use. Patient was and dies 1 years old. FAMILY HISTORY He does not know his father's medical history. Mother dies at age 84 with history of CAD. He has one brother iwth CAD. He has 2 sisters. PHYSICAL EXAMINATION Gen: This is an 85-year-old male. He is sitting on edge of the bed and appears to be comfortable at rest. HEENT: Head is atraumatic, normocephalic. Pupils equal, round. Sclerae is anicteric. NECK: Supple. No JVD. No lymphadenopathy. No thyromegaly. LUNGS: Clear to auscultation. No wheezes or rhonchi. No intercostal retractions. HEART: Regular rate and rhythm. Systolic murmur. ABDOMEN: Soft. Bowel sounds are present. No masses. No tenderness. EXTREMITIES: No pedal edema. No calf tenderness. NEUROLOGICAL: Patient is awake, alert and oriented x3. Cranial nerves 2 through 12 are grossly intact. ASSESSMENT AND PLAN 1. Syncopal episode with hypotension and bradycardia. Continue cardiac monitoring. Patient's been resumed on Coreg 12.5 mg twice daily, consult with cardiology, orthostatic vital signs. 2. Respiratory insufficiency secondary to combination of COPD exacerbation and acute on chronic systolic heart failure. Patient started on Solu-Medrol 60 mg IV every 6 hours, DuoNeb treatments 4 times daily, Symbicort 2 puffs twice daily, Lasix 20 mg IV every 12 hours, continue Coreg, monitor I&O and daily weights. 3. History of coronary artery disease status post 5 vessel CABG, stable no com plaints of chest pain. continue aspirin 81 mg daily, Lipitor 10 mg at bedtime, Coreg, lisinopril. 4. Hypertension. Continue lisinopril 5 mg daily, Lasix, Coreg, Norvasc 5 mg twice daily. 5. Hyperlipidemia. Continue statin 6. Gastroesophageal reflux disease. Continue Protonix 40 mg daily. 7. Hypothyroidism. Continue levothyroxine 75 g daily. 8. Recent hospitalization for acute respiratory failure requiring intubation mechanical ventilation secondary to COPD exacerbation and acute heart failure. Patient was stabilized and went to [facility] for rehab. 9. GI prophylaxis. Protonix. 10. DVT prophylaxis. Heparin subcu 11. Hyperglycemia, suspect diabetes. Hemoglobin A1c, NovoLog scale before meals and at bedtime. 12. COVID-19 testing negative. Patient has been hospitalized during a pandemic. Patient will be admitted to the hospital for a minimum of 2 night stay. DISCHARGE PLAN return to [facility] for subacute rehab. Impression and plan of care have been directed as dictated by the signing physician. Alma Rosa Noonan nurse practitioner acting as scribe for signing physician. Past Medical History Past Medical History: Coronary Artery Disease (CAD), COPD, GERD/Reflux, Hyperlipidemia, Hypertension, Thyroid Disorder Additional Past Medical History / Comment(s): anemia, vit d def., vertigo, resp failure with intubation on 02/25/2021. History of Any Multi-Drug Resistant Organisms: None Reported Past Surgical History: Coronary Bypass/CABG, Heart Catheterization Additional Past Surgical History / Comment(s): CABG x 5, knee sx, bilat rotator cuff Past Anesthesia/Blood Transfusion Reactions: No Reported Reaction Past Psychological History: No Psychological Hx Reported Smoking Status: Former smoker Past Alcohol Use History: Occasional Past Drug Use History: None Reported - Past Family History Father Family Medical History: No Reported History Mother Family Medical History: AICD/Pacemaker Family Family Medical History: Unable to Obtain Medications and Allergies Home Medications Medication Instructions Recorded Confirmed Type Acetaminophen [Tylenol] 1,000 mg PO DAILY 02/23/21 03/08/21 History Aspirin EC [Ecotrin Low Dose] 81 mg PO DAILY 02/23/21 03/08/21 History Celecoxib [CeleBREX] 200 mg PO DAILY@59902/23/21 03/08/21 History Cholecalciferol [Vitamin D3 (25 25 mcg PO DAILY@59902/23/21 03/08/21 History Mcg = 1000 Iu)] Ferrous Sulfate [Feosol] 325 mg PO DAILY@59902/23/2121 History Levothyroxine Sodium [Synthroid] 75 mcg PO DAILY@0600 02/23/21 03/08/21 History Meclizine HCl 25 mg PO DAILY 02/23/21 03/08/21 History Omeprazole 20 mg PO DAILY 02/23/21 03/08/21 History Potassium Chloride ER [K-Dur 10] 10 meq PO BID@0900,1300 02/23/21 03/08/21 History amLODIPine [Norvasc] 5 mg PO BID@0900,1700 02/23/21 03/08/21 History Budesonide-Formot 160-4.5 Mcg 2 puff INHALATION RT-BID gm 03/02/21 03/08/21 Rx [Symbicort 160-4.5 Mcg Inhaler] Bumetanide [BUMEX] 1 mg PO DAILY tab 03/02/21 03/08/21 Rx Ipratropium-Albuterol Nebulize 3 ml INHALATION RT-QID ml 03/02/21 03/08/21 Rx [Duoneb 0.5 mg-3 mg/3 ml Soln] lisinopriL [Zestril] 5 mg PO DAILY tab 03/02/21 03/08/21 Rx Atorvastatin [Lipitor] 10 mg PO HS 03/08/21 03/08/21 History INSULIN ASPART (NovoLOG) [NovoLOG 0 unit SQ ACHS ml 03/10/21 Rx (formulary)] carvediloL [Coreg] 6.25 mg PO BID-W/MEALS tab 03/10/21 Rx predniSONE 0 mg PO DIRECTED #30 tab 03/10/21 Rx Allergies Allergy/AdvReac Type Severity Reaction Status Date / Time Penicillins Allergy Unknown Verified 03/08/21 11:52 Physical Exam Vitals: Vital Signs Temp Pulse Pulse Pulse Resp BP BP 03/09/21 07:00 97.6 F 73 18 147/70 03/09/21 02:00 97.5 F L 66 16 150/81 03/08/21 20:00 97.4 F L 74 18 139/85 03/08/21 18:52 98.0 F 74 18 160/69 03/08/21 18:00 66 18 150/83 03/08/21 17:48 97.6 F 66 18 151/77 03/08/21 17:00 66 18 03/08/21 16:00 66 18 151/77 03/08/21 15:00 65 18 125/77 03/08/21 14:00 64 18 125/77 03/08/21 13:27 63 18 113/89 03/08/21 11:51 88 16 03/08/21 11:41 87 16 03/08/21 11:31 24 03/08/21 11:14 97.6 F 70 24 119/79 Pulse Ox 03/09/21 07:00 94 L 03/09/21 02:00 94 L 03/08/21 20:00 99 03/08/21 18:52 97 03/08/21 18:00 95 03/08/21 17:48 95 03/08/21 17:00 95 03/08/21 16:00 95 03/08/21 15:00 98 03/08/21 14:00 98 03/08/21 13:27 98 03/08/21 11:51 03/08/21 11:41 03/08/21 11:31 03/08/21 11:14 95 Intake and Output 03/08/21 03/09/21 03/09/21 22:59 06:59 14:59 Intake Total 118 Output Total 800 Balance -682 Intake: Oral 118 Output: Urine 800 Other: Voiding Method Urinal # Voids 1 4 Weight 118.841 kg 123.5 kg Results CBC & Chem 7: 03/08/21 11:24 03/10/21 04:48 Labs: Abnormal Lab Results - Last 24 Hours (Table) 03/08/21 03/08/21 03/08/21 Range/Units 11:24 11:24 11:24 WBC 11.5 H (3.8-10.6) k/uL Neutrophils # 9.2 H (1.3-7.7) k/uL APTT 20.6 L (22.0-30.0) sec Sodium 129 L (137-145) mmol/L Potassium 5.2 H (3.5-5.1) mmol/L Chloride 89 L (98-107) mmol/L Carbon Dioxide 34 H (22-30) mmol/L BUN 32 H (9-20) mg/dL Glucose 238 H (74-99) mg/dL POC Glucose (mg/dL) (75-99) mg/dL Total Protein 6.1 L (6.3-8.2) g/dL Albumin 3.4 L (3.5-5.0) g/dL 03/08/21 03/09/21 Range/Units 20:41 07:05 WBC (3.8-10.6) k/uL Neutrophils # (1.3-7.7) k/uL APTT (22.0-30.0) sec Sodium (137-145) mmol/L Potassium (3.5-5.1) mmol/L Chloride (98-107) mmol/L Carbon Dioxide (22-30) mmol/L BUN (9-20) mg/dL Glucose (74-99) mg/dL POC Glucose (mg/dL) 166 H 100 H (75-99) mg/dL Total Protein (6.3-8.2) g/dL Albumin (3.5-5.0) g/dL Thrombosis Risk Factor Assmnt - Choose All That Apply Any of the Below Risk Factors Present?: Yes Each Factor Represents 1 point: Abnormal pulmonary function (COPD), Obesity (BMI >25) Other Risk Factors: Yes Each Risk Factor Represents 3 Points: Age 75 years or older Other congenital or acquired thrombophilia - If yes, enter type in comment: No Thrombosis Risk Factor Assessment Total Risk Factor Score: 5 Thrombosis Risk Factor Assessment Level: High Risk
[2021-03-09 17:26] LABS: Glucose,Whole Blood 173 mg/dL (75-99)
[2021-03-09] MEDS: INSULIN ASPART (NovoLOG) 100 UNIT/ML VIAL SQ SCH ×2 (17:38→21:02)
[2021-03-09] MEDS: HEPARIN SODIUM,PORCINE/PF 5,000 UNIT/0.5 ML SYRINGE SQ SCH ×2 (17:39→23:52)
[2021-03-09 20:43] LABS: Glucose,Whole Blood 223 mg/dL (75-99)
[2021-03-09] MEDS: ATORVASTATIN 10 MG TAB PO SCH (21:02)
[2021-03-09 21:07] VITALS: RESP 18
[2021-03-10] MEDS: LEVOTHYROXINE 75 MCG TAB PO SCH (05:37)
[2021-03-10] MEDS: methylPREDNISolone SOD SUCCI 125 MG/2 ML VIAL IV SCH (05:37)
[2021-03-10 07:13] LABS: Glucose,Whole Blood 179 mg/dL (75-99)
[2021-03-10 08:26] VITALS: TEMP 97.8
[2021-03-10] MEDS: SYMBICORT 160-4.5 MCG INHALER INHALATION SCH ×2 (08:41→12:39)
[2021-03-10] MEDS: IPRATROPIUM-ALBUTEROL 3 ML NEB INHALATION SCH ×2 (08:41→12:40)
[2021-03-10] MEDS: INSULIN ASPART (NovoLOG) 100 UNIT/ML VIAL SQ SCH (08:50)
[2021-03-10] MEDS: ASPIRIN 81 MG PO SCH (08:51)
[2021-03-10] MEDS: FUROSEMIDE 10 MG/ML 2 ML VIAL IV SCH (08:51)
[2021-03-10] MEDS: CHOLECALCIFEROL 25 MCG (1000 IU) TABLET PO SCH (08:51)
[2021-03-10] MEDS: ACETAMINOPHEN TAB 500 MG TAB PO SCH (08:51)
[2021-03-10] MEDS: PANTOPRAZOLE 40 MG TABLET PO SCH (08:51)
[2021-03-10] MEDS: HEPARIN SODIUM,PORCINE/PF 5,000 UNIT/0.5 ML SYRINGE SQ SCH (08:51)
[2021-03-10] MEDS: lisinopriL 5 MG TAB PO SCH (08:52)
[2021-03-10] MEDS: amLODIPine 5 MG TAB PO SCH (08:52)
[2021-03-10] MEDS: MECLIZINE 25 MG TAB PO SCH (08:52)
[2021-03-10] MEDS: FERROUS SULFATE 325 MG TAB PO SCH (08:52)
[2021-03-10] MEDS ORDERED: carvediloL 12.5 MG TAB PO SCH (09:15)
[2021-03-10] MEDS ORDERED: carvediloL 6.25 MG TAB PO SCH (09:30)
--- NOTE | 2021-03-10 09:33 | P.CRDCN ---
History of Present Illness History of present illness: HISTORY OF PRESENTING ILLNESS This is a pleasant 85-year-old male past medical history significant for coronary artery disease s/p 5V bypass grafting 10-15 years ago, hypertension, dyslipideia, cardiomyopathy, systolic heart failure, COPD and former nicotine dependence. He follows in the office with [facility] in [place]. We have been asked to see in consultation for syncope, bradycardia and heart failure. He was recently discharged 03/02/2021 secondary to hypoxic respiratory failure requiring mechanical ventilation secondary to heart failure and COPD. He was discharged to [facility] in stable condition. The patient himself states he is here on this occasion due to cough and shortness of breath. The ER documentation states he was complaining of feeling short of breath and then subsequently had a 5-min episode of unresponsiveness. He was awake and alert by the time medics arrived. There was some hypotension and bradycardia mentioned as well. On arrival here blood pressure was 119/79 with heart rate of 70. EKG revealed sinus mechanism, first-degree AV block, left axis deviation, left bundle branch block and PVCs. Chest x-ray reveals cardiomegaly with chronic changes, no acute cardiopulmonary process noted. CTA is negative for central PE however cannot exclude small segmental or subsegmental PEs based on a difficult study with mild basilar linear scarring and atelectasis and no suspicious infiltrate noted. Laboratory data reviewed, WBC 11.5, hemoglobin 15.3, platelets 236, sodium 129, potassium 5.2, creatinine 0.76, magnesium 1.9, cardiac enzymes negative 1 and proBNP 774. Most recent echocardiogram obtained from previous admission February 24 reveals impaired LV systolic function with ejection fraction 40-45% with mild aortic stenosis with a mean gradient of 17 mmHg. Current daily cardiac medications include aspirin 81 mg daily, atorvastatin 10 mg daily, Bumex 1 mg daily, Coreg 12.5 mg twice a day, amlodipine 5 mg twice a day and lisinopril 5 mg daily. On admission he was initiated on IV diuretics. He has had 2 L of urine output maintaining a negative fluid balance. REVIEW OF SYSTEMS At the time of my exam: CONSTITUTIONAL: Denies fever or chills. CARDIOVASCULAR: Denies chest pain, orthopnea, PND or palpitations. RESPIRATORY: Complains of cough and shortness of breath. GASTROINTESTINAL: Denies abdominal pain, diarrhea, constipation, nausea or vomiting. MUSCULOSKELETAL: Denies myalgias. NEUROLOGIC: Denies numbness, tingling, headache or weakness. ENDOCRINE: Denies fatigue, weight change, polydipsia or polyurina. GENITOURINARY: Denies burning, hematuria or urgency with micturation. HEMATOLOGIC: Denies history of anemia or bleeding. PHYSICAL EXAMINATION Blood pressure 162/88 heart rate 88 afebrile and maintaining oxygen saturation on nasal cannula. CONSTITUTIONAL: No apparent distress. HEENT: Head is normocephalic. Pupils are equal, round. Sclerae anicteric. Mucous membranes of the mouth are moist. No JVD. No carotid bruit. CHEST EXAMINATION: Lungs are clear to auscultation. No chest wall tenderness is noted on palpation or with deep breathing. HEART EXAMINATION: Regular rate and rhythm. S1, S2 heard. Systolic ejection m urmur at the base, no gallops or rub. ABDOMEN: Soft, nontender. EXTREMITIES: 2+ peripheral pulses, right lower extremity trace edema, no edema on the left and no calf tenderness. NEUROLOGIC EXAMINATION: Patient is awake, alert and oriented x3. ASSESSMENT Shortness of breath Unresponsiveness Leukocytosis Hyponatremia Hyperkalemia Hypercapnia Coronary artery disease s/p bypass grafting Hypertension Dyslipidemia Chronic systolic heart failure PLAN Repeat limited echo to assess LV function. Check for orthostatic changes. Resume coreg at lower dose of 6.25 mg BID. Recommend outpatient event monitor upon discharge. Thank you kindly for this consultation. Nurse Practitioner note has been reviewed, I agree with a documented findings and plan of care. Patient was seen and examined. Past Medical History Past Medical History: Coronary Artery Disease (CAD), COPD, GERD/Reflux, Hyperlipidemia, Hypertension, Thyroid Disorder Additional Past Medical History / Comment(s): anemia, vit d def., vertigo, resp failure with intubation on 02/25/2021. History of Any Multi-Drug Resistant Organisms: None Reported Past Surgical History: Coronary Bypass/CABG, Heart Catheterization Additional Past Surgical History / Comment(s): CABG x 5, knee sx, bilat rotator cuff Past Anesthesia/Blood Transfusion Reactions: No Reported Reaction Past Psychological History: No Psychological Hx Reported Smoking Status: Former smoker Past Alcohol Use History: Occasional Past Drug Use History: None Reported - Past Family History Father Family Medical History: No Reported History Mother Family Medical History: AICD/Pacemaker Family Family Medical History: Unable to Obtain Medications and Allergies Home Medications Medication Instructions Recorded Confirmed Type Acetaminophen [Tylenol] 1,000 mg PO DAILY 02/23/21 03/08/21 History Aspirin EC [Ecotrin Low Dose] 81 mg PO DAILY 02/23/21 03/08/21 History Carvedilol [Coreg] 12.5 mg PO BID 02/23/21 03/08/21 History Celecoxib [CeleBREX] 200 mg PO DAILY@0600 02/23/21 03/08/21 History Cholecalciferol [Vitamin D3 (25 25 mcg PO DAILY@0602/23/21 03/08/21 History Mcg = 1000 Iu)] Ferrous Sulfate [Feosol] 325 mg PO DAILY@0600 02/23/21 03/08/21 History Levothyroxine Sodium [Synthroid] 75 mcg PO DAILY@0602/23/21 03/08/21 History Meclizine HCl 25 mg PO DAILY 02/23/21 03/08/21 History Omeprazole 20 mg PO DAILY 02/23/21 03/08/21 History Potassium Chloride ER [K-Dur 10] 10 meq PO BID@0900,1300 02/23/21 03/08/21 History amLODIPine [Norvasc] 5 mg PO BID@0900,1700 02/23/21 03/08/21 History Budesonide-Formot 160-4.5 Mcg 2 puff INHALATION RT-BID gm 03/02/21 03/08/21 Rx [Symbicort 160-4.5 Mcg Inhaler] Bumetanide [BUMEX] 1 mg PO DAILY tab 03/02/21 03/08/21 Rx Ipratropium-Albuterol Nebulize 3 ml INHALATION RT-QID ml 03/02/21 03/08/21 Rx [Duoneb 0.5 mg-3 mg/3 ml Soln] lisinopriL [Zestril] 5 mg PO DAILY tab 03/02/21 03/08/21 Rx Atorvastatin [Lipitor] 10 mg PO HS 03/08/21 03/08/21 History predniSONE [Deltasone] See Taper PO DAILY 03/08/21 03/08/21 History Allergies Allergy/AdvReac Type Severity Reaction Status Date / Time Penicillins Allergy Unknown Verified 03/08/21 11:52 Physical Exam Vitals: Vital Signs Temp Pulse Pulse Pulse Resp BP Pulse Ox 03/10/21 08:54 88 03/10/21 08:41 88 03/10/21 08:00 97.8 F 90 18 162/88 96 03/10/21 02:00 97.7 F 73 18 126/77 93 L 03/09/21 20:00 97.7 F 72 18 133/75 93 L 03/09/21 14:40 97.5 F L 63 17 133/69 97 03/09/21 14:00 74 63 17 Intake and Output 03/09/21 03/10/21 03/10/21 22:59 06:59 14:59 Output Total 1000 Balance -1000 Output: Urine 1000 Other: Voiding Method Urinal # Voids 2 Weight 122 kg Results 03/08/21 11:24 03/08/21 11:24 Current Medications Generic Name Dose Route Start Last Admin Trade Name Freq PRN Reason Stop Dose Admin Acetaminophen 1,000 mg 03/09/21 09:00 03/10/21 08:51 Acetaminophen Tab 500 Mg Tab PO 1,000 mg DAILY SHERRI Administration Acetaminophen 650 mg 03/08/21 19:59 Acetaminophen Tab 325 Mg Tab PO Q6HR PRN Fever and/ or Pain Albuterol/Ipratropium 3 ml 03/08/21 20:00 03/10/21 08:41 Ipratropium-Albuterol 3 Ml Neb INHALATION 3 ml RT-QID SHERRI Administration Amlodipine Besylate 5 mg 03/09/21 09:00 03/10/21 08:52 Amlodipine 5 Mg Tab PO 5 mg BID@0900,1700 SHERRI Administration Aspirin 81 mg 03/09/21 09:00 03/10/21 08:51 Aspirin 81 Mg PO 81 mg DAILY SHERRI Administration Atorvastatin Calcium 10 mg 03/08/21 21:00 03/09/21 21:02 Atorvastatin 10 Mg Tab PO 10 mg HS SHERRI Administration Budesonide/Formoterol Fumarate 2 puff 03/08/21 20:00 03/10/21 08:41 Symbicort 160-4.5 Mcg Inhaler INHALATION 2 puff RT-BID SHERRI Administration Cholecalciferol 25 mcg 03/09/21 09:00 03/10/21 08:51 Cholecalciferol 25 Mcg (1000 Iu) Tablet PO 25 mcg DAILY@0900 SHERRI Administration Ferrous Sulfate 325 mg 03/09/21 09:00 03/10/21 08:52 Ferrous Sulfate 325 Mg Tab PO 325 mg DAILY@0900 SHERRI Administration Furosemide 20 mg 03/09/21 09:15 03/10/21 08:51 Furosemide 10 Mg/Ml 2 Ml Vial IV 20 mg Q12HR SHERRI Administration Heparin Sodium (Porcine) 5,000 unit 03/09/21 16:00 03/10/21 08:51 Heparin Sodium,Porcine/Pf 5,000 Unit/0.5 Ml Syringe SQ 5,000 unit Q8HR SHERRI Administration Sodium Chloride 1,000 mls @ 75 mls/hr 03/08/21 14:45 03/09/21 21:06 Saline 0.9% IV 75 mls/hr .[id number] SHERRI Administration Insulin Aspart 0 unit 03/09/21 17:30 03/10/21 08:50 Insulin Aspart (Novolog) 100 Unit/Ml Vial SQ 4 unit ACHS SHERRI Administration Protocol Levothyroxine Sodium 75 mcg 03/09/21 06:30 03/10/21 05:37 Levothyroxine 75 Mcg Tab PO 75 mcg DAILY@0630 SHERRI Administration Lisinopril 5 mg 03/09/21 09:00 03/10/21 08:52 Lisinopril 5 Mg Tab PO 5 mg DAILY SHERRI Administration Meclizine HCl 25 mg 03/09/21 09:00 03/10/21 08:52 Meclizine 25 Mg Tab PO 25 mg DAILY SHERRI Administration Methylprednisolone Sodium Succinate 60 mg 03/09/21 12:00 03/10/21 05:37 Methylprednisolone Sod Succi 125 Mg/2 Ml Vial IV 60 mg Q6HR SHERRI Administration Naloxone HCl 0.2 mg 03/08/21 14:37 Naloxone 0.4 Mg/Ml 1 Ml Vial IV Q2M PRN Opioid Reversal Pantoprazole Sodium 40 mg 03/09/21 07:30 03/10/21 08:51 Pantoprazole 40 Mg Tablet PO 40 mg DAILY@0730 SHERRI Administration Intake and Output 03/09/21 03/10/21 03/10/21 22:59 06:59 14:59 Output Total 1000 Balance -1000 Output: Urine 1000 Other: Voiding Method Urinal # Voids 2 Weight 122 kg 03/08/21 11:24 03/08/21 11:24
[2021-03-10 09:58] LABS: African American GFR (CKD) >90 (>60 ml/min/1.73 sqM); Anion Gap 9 mmol/L; Blood Urea Nitrogen 30 mg/dL (9-20); Calcium 9.3 mg/dL (8.4-10.2); Carbon Dioxide 30 mmol/L (22-30); Chloride 93 mmol/L (98-107); Glucose 184 mg/dL (74-99); Non-African American GFR(CKD) 82 (>60 ml/min/1.73 sqM); Potassium 5.1 mmol/L (3.5-5.1); Sodium 132 mmol/L (137-145)
[2021-03-10 10:36] VITALS: BP 143/70; PULSE 102
--- NOTE | 2021-03-10 11:11 | P.DS ---
<StaciehécotrRemay A - Last Filed: 03/10/21 12:51> Providers Expected date of discharge: 03/10/21 Hospital Course: HISTORY OF PRESENT ILLNESS This is an 85-year-old male patient that follows with [facility] IN [place], [place], with past medical history of COPD, coronary artery disease with 5 vessel bypass grafting, chronic systolic heart failure, hypertension, hyperlipidemia, gastroesophageal reflux disease, hypothyroidism, patient was recently hospitalized for acute hypoxic respiratory failure secondary to COPD exacerbation and acute systolic heart failure requiring intubation mechanical ventilation. Patient was stabilized and discharged to [facility] on care of Dr. Crespo.. Patient complains of shortness of breath with minimal activity. He denies having any fever or chills. No nausea or vomiting. He was noted by EMS to have low heart beat in the 30s and low blood pressure. On presentation his heart rate was 70 and blood pressure 119/79, afebrile. WBC 11.5, hemoglobin 15.3, platelet count 236. Sodium 129, potassium 5.2, chloride 89, CO2 34, BUN 32 creatinine 0.76. Blood sugar 238. Liver function tests were normal. Magnesium 1.9. Lactic acid 1.9. Troponin negative. ProBNP 774. EKG was sinus rhythm with first-degree block and left bundle branch block. Patient was started on IV Solu-Medrol IV Lasix and admitted to the [facility] floor. Echocardiogram on last admission was EF 40-45% with moderate global hypokinesia of the LV, moderate aortic valve sclerosis, mild aortic regurgitation, mild aortic stenosis, mild mitral regurgitation, mild tricuspid regurgitation. 03/10: CTA of the chest was suboptimal but without central ulnar embolism. Cannot exclude smaller segmental and subsegmental PE. Mild bibasilar linear scarring and/or atelectasis. No suspicious acute infiltrate. Patient has been seen by cardiology and Coreg resumed at lower dose of 6.25 mg twice daily and recommend outpatient event monitor upon discharge. Patient is continued on IV Lasix and IV Solu-Medrol transitioned to oral. Patient states his breathing is stable. Lungs clear to auscultation, he is normally on oxygen. ASSESSMENT AND PLAN 1. Syncopal episode with hypotension and bradycardia. Event monitor. 2. Respiratory insufficiency secondary to combination of COPD exacerbation and acute on chronic systolic heart failure. 3. History of coronary artery disease status post 5 vessel CABG, stable no complaints of chest pain. 4. Hypertension. 5. Hyperlipidemia. 6. Gastroesophageal reflux disease. 7. Hypothyroidism. 8. Recent hospitalization for acute respiratory failure requiring intubation mechanical ventilation secondary to COPD exacerbation and acute heart failure. 9. Hyperglycemia, suspect diabetes. Hemoglobin A1c 12. COVID-19 testing negative. DISCHARGE PLAN [facility] in [place] for subacute rehab. Impression and plan of care have been directed as dictated by the signing physician. Alma Rosa Noonan nurse practitioner acting as scribe for signing physician. Patient Condition at Discharge: Stable Plan - Discharge Summary New Discharge Prescriptions: New carvediloL [Coreg] 6.25 mg PO BID-W/MEALS tab INSULIN ASPART (NovoLOG) [NovoLOG (formulary)] 0 unit SQ ACHS ml predniSONE 0 mg PO DIRECTED #30 tab Continue Ferrous Sulfate [Feosol] 325 mg PO DAILY@0600 Meclizine HCl 25 mg PO DAILY Acetaminophen [Tylenol] 1,000 mg PO DAILY amLODIPine [Norvasc] 5 mg PO BID@0900,1700 Potassium Chloride ER [K-Dur 10] 10 meq PO BID@0900,1300 Celecoxib [CeleBREX] 200 mg PO DAILY@0600 Ipratropium-Albuterol Nebulize [Duoneb 0.5 mg-3 mg/3 ml Soln] 3 ml INHALATION RT-QID ml Budesonide-Formot 160-4.5 Mcg [Symbicort 160-4.5 Mcg Inhaler] 2 puff IN HALATION RT-BID gm Atorvastatin [Lipitor] 10 mg PO HS Cholecalciferol [Vitamin D3 (25 Mcg = 1000 Iu)] 25 mcg PO DAILY@0600 Aspirin EC [Ecotrin Low Dose] 81 mg PO DAILY Omeprazole 20 mg PO DAILY Levothyroxine Sodium [Synthroid] 75 mcg PO DAILY@0600 Bumetanide [BUMEX] 1 mg PO DAILY tab lisinopriL [Zestril] 5 mg PO DAILY tab Discontinued Carvedilol [Coreg] 12.5 mg PO BID predniSONE [Deltasone] See Taper PO DAILY Discharge Medication List Acetaminophen [Tylenol] 1,000 mg PO DAILY 02/23/21 [History] Aspirin EC [Ecotrin Low Dose] 81 mg PO DAILY 02/23/21 [History] Celecoxib [CeleBREX] 200 mg PO DAILY@0600 02/23/21 [History] Cholecalciferol [Vitamin D3 (25 Mcg = 1000 Iu)] 25 mcg PO DAILY@0600 02/23/21 [History] Ferrous Sulfate [Feosol] 325 mg PO DAILY@0602/23/21 [History] Levothyroxine Sodium [Synthroid] 75 mcg PO DAILY@0600 02/23/21 [History] Meclizine HCl 25 mg PO DAILY 02/23/21 [History] Omeprazole 20 mg PO DAILY 02/23/21 [History] Potassium Chloride ER [K-Dur 10] 10 meq PO BID@0900,1300 02/23/21 [History] amLODIPine [Norvasc] 5 mg PO BID@0900,1700 02/23/21 [History] Budesonide-Formot 160-4.5 Mcg [Symbicort 160-4.5 Mcg Inhaler] 2 puff INHALATION RT-BID gm 03/02/21 [Rx] Bumetanide [BUMEX] 1 mg PO DAILY tab 03/02/21 [Rx] Ipratropium-Albuterol Nebulize [Duoneb 0.5 mg-3 mg/3 ml Soln] 3 ml INHALATION R T-QID ml 03/02/21 [Rx] lisinopriL [Zestril] 5 mg PO DAILY tab 03/02/21 [Rx] Atorvastatin [Lipitor] 10 mg PO HS 03/08/21 [History] INSULIN ASPART (NovoLOG) [NovoLOG (formulary)] 0 unit SQ ACHS ml 03/10/21 [Rx] carvediloL [Coreg] 6.25 mg PO BID-W/MEALS tab 03/10/21 [Rx] predniSONE 0 mg PO DIRECTED #30 tab 03/10/21 [Rx] Follow up Appointment(s)/Referral(s): Lexus Crespo MD [Primary Care Provider] - 1-2 days Activity/Diet/Wound Care/Special Instructions: [facility] return Discharge Disposition: TRANSFER TO SNF/ECF <Carolina Olson - Last Filed: 03/10/21 13:18> Providers Date of admission: 03/09/21 10:49 Attending physician: Carolina Olson MD Consults: 03/09/21 15:22 Consult Physician Routine Consulting Provider: Gerardo Ramsey Consult Reason/Comments: Syncope, bradycardia, heart failure Do you want consulting provider notified?: Yes Primary care physician: [facility] Course: More than 30 minutes was spent making the assessment and plan for the patient.
--- NOTE | 2021-03-10 11:52 | ECHOF ---
Referral Reason:assess lv function MEASUREMENTS -------- HEIGHT: 188.0 cm WEIGHT: 121.6 kg BP: 162/88 FINDINGS -------- This was a technically difficult study with suboptimal views. Overall left ventricular systolic function is low-normal with, an EF between 50 - 55 %. 5.0mg of Lumason was utilized for enhancement of images There is no pericardial effusion. CONCLUSIONS -------- 1. This was a technically difficult study with suboptimal views. 2. Overall left ventricular systolic function is low-normal with, an EF between 50 - 55 %. 3. 5.0mg of Lumason was utilized for enhancement of images 4. There is no pericardial effusion. PHOTOGRAPHIC PRESS SCREWMAKER: DEREJE Stockton
== END 2021-03-10 12:40 | DRG 190 ==
LOC: EC 11:11 → 6NMEDSUR 14:45 → OBSVTOIN 03-09 10:49
PROVIDERS: ADMIT Internal Medicine; ATTEND Internal Medicine
DX: J44.1 Chronic obstructive pulmonary disease with (acute) exacerbation (principal); I50.23 Acute on chronic systolic (congestive) heart failure; E87.1 Hypo-osmolality and hyponatremia; I42.9 Cardiomyopathy, unspecified; D72.829 Elevated white blood cell count, unspecified; E03.9 Hypothyroidism, unspecified; E78.5 Hyperlipidemia, unspecified; E86.0 Dehydration; E87.5 Hyperkalemia; I11.0 Hypertensive heart disease with heart failure; I25.10 Atherosclerotic heart disease of native coronary artery without angina pectoris; I44.0 Atrioventricular block, first degree; E55.9 Vitamin D deficiency, unspecified; I95.9 Hypotension, unspecified; R00.1 Bradycardia, unspecified; K21.9 Gastro-esophageal reflux disease without esophagitis; Z20.822 Contact with and (suspected) exposure to COVID-19; Z79.1 Long term (current) use of non-steroidal anti-inflammatories (NSAID); Z79.51 Long term (current) use of inhaled steroids; Z79.82 Long term (current) use of aspirin; Z95.1 Presence of aortocoronary bypass graft; Z87.891 Personal history of nicotine dependence; Z82.49 Family history of ischemic heart disease and other diseases of the circulatory system; Z79.899 Other long term (current) drug therapy; Z79.890 Hormone replacement therapy
CPT/HCPCS: 36415; 71046; 71275; 80048; 80053; 83036; 83605; 83735; 83880; 84484; 85025; 85610; 85730; 87635; 93005; 93308; 94640; 99291